=== PATIENT | female | born 1945 | race Caucasian/White ===

== ENCOUNTER 2017-08-30 10:13 | Day surgery (SDC) | payer MEDICARE, MEDICAID, SELFPAY ==
[2017-08-30] VITALS (11 sets, daily range): BP systolic 150–188; BP diastolic 73–109; PULSE 67–81; RESP 14–19; TEMP 36.6–37.2; O2SAT 95–100; BMI 30.3; BMI 32.3
[2017-08-30] MEDS: Glucagon 1 MG/ML Syringe IV (11:06)
--- NOTE | 2017-08-30 11:56 | ED.VISSUMM ---
- ER Visit Summary Date of Service: 08/30/17 Chief Complaint: Esophageal impaction History of Present Illness: The patient is a [address] Merlos. Yesterday at approximately 5 PM she was eating a pork chop and states that it got stuck in her throat. She has been able to eat or drink since. She denies any pain. Patient is from a [place] [facility]. When the caregiver undressed her she noticed the patient has candidal rash beneath her breasts. Physical Examination: Vitals: Stable. Afebrile. General: Well-nourished and well-developed. Head: Normocephalic atraumatic. Neck: Supple, no lymphadenopathy. No JVD. Nontender. Cardiovascular: Regular rate and rhythm. No murmurs. Respiratory: No respiratory distress. Clear to auscultation bilaterally. Abdominal: Soft, nontender, nondistended, normal bowel sounds. No guarding, rebound, or peritoneal signs. Back: Nontender. Extremities: Nontender, no edema. Skin: Erythematous rash below her breasts that is consistent with Maile.. Neurologic: Alert and oriented ?3. Cranial nerves II through XII are intact. Normal strength and sensation. Psych: Normal affect. Emergency Department Course and Treatment: Patient had an IV placed. She is given glucagon IV. She has been unable to get the food bolus the past. Treatment Plan: Patient was discussed with Dr. Leung. He will take her to endoscopy at 430 this afternoon. She is also discussed with the washhouse worker and Dr. Mariee of anesthesia. Disposition: Transferred to endoscopy. Impression: 1. Esophageal impaction. 2. Candidal rash below her breasts. This note was generated with [employer]here[employer] dictation software. It may contain incorrect words, spelling, and punctuation that were not noted in review of the chart prior to signing ED Disposition - Plan for ED Patient: Chief Complaint: Foreign Body Instructions: ED Foreign Body Esophageal Rslv Prescriptions: Ondansetron [Zofran Odt] 4 mg PO Q8H PRN PRN #10 tab PRN Reason: Nausea Nystatin Powder [Mycostatin Powder] 1 applic TOPICAL TID #1 bottle Referrals: Mook Merlos Chi, MD [Primary Care Provider] - Chalo Leung MD [STAFF PHYSICIAN] - 1-2 Weeks
[2017-08-30] MEDS: Ondansetron 4 MG/2 ML Vial IV (12:15)
--- NOTE | 2017-08-30 13:31 | ED.RN ---
[facility] WITH ENDO CALLED. HOLD PT IN ED TILL 1530. DR. SILVESTRE WILL NOT BE HERE TILL 1630.
--- NOTE | 2017-08-30 14:01 | ED.RN ---
pt made aware that she will be going to ac at [address] leiva would be doing an endoscopy at 1630.
[2017-08-30] MEDS: 0.9% Normal Saline 1,000 ML 200 ML IV (14:21)
--- NOTE | 2017-08-30 17:34 | PCM.OP.BLANK ---
Operative Report Date of Procedure: 08/30/17 Preop diagnosis: Patient with a foreign body in the esophagus Postop diagnosis: EGD with foreign body removal Anesthesia: Via the MAC Instrument: Olympus upper endoscope Informed consent was taken prior to procedure. The patient was brought to the endoscopy suite[ she] was placed left shoulder down. Retropharynx was sprayed with topical Cetacaine spray. Anesthesia provided the MAC. The scope was passed under direct visualization down into the esophagus. There was liquid in the proximal esophagus this was sucked up into the endoscope about 30 cm was a large piece of meat. Using a snare a piece of the meat was grasped and brought out. Then using a hexagonal square the entire piece of meat was grasped. This was brought out of the esophagus. The endoscope was reintroduced back into the esophagus significant inflammation of the distal esophagus consistent with a severe esophagitis. The endoscope was passed into the stomach down of the duodenum there was no obstruction noted. The endoscope was withdrawn into the stomach retroflexion was performed no abnormalities near the cardia. Stomach was decompressed there was with severe inflammation of the distal esophagus. Patient tolerated procedure well. Impression: Foreign body of the esophagus successfully removed she has severe esophagitis Plan: Patient needs to take a PPI for ever CC a copy Dr. Merlos
== END 2017-08-30 18:15 | disposition home or self-care (01) ==
LOC: ED 13:57 → EN 15:31 → SDC 16:11 → AC 16:12
PROVIDERS: Family Provider Family Medicine Geriatric Medicine; PCP Family Medicine Geriatric Medicine; Visit Provider Internal Medicine Gastroenterology
PROC: 0DJ08ZZ Inspection of Upper Intestinal Tract, Via Natural or Artificial Opening Endoscopic (ICD-10-PCS; CPT 43235; principal; 2017-08-30 16:25)
DX: T18.128A Food in esophagus causing other injury, initial encounter (principal); X58.XXXA Exposure to other specified factors, initial encounter; Y93.9 Activity, unspecified; Y92.9 Unspecified place or not applicable; Y99.9 Unspecified external cause status; B37.2 Candidiasis of skin and nail; E11.9 Type 2 diabetes mellitus without complications; I10 Essential (primary) hypertension; J45.909 Unspecified asthma, uncomplicated; Z79.899 Other long term (current) drug therapy; Z87.891 Personal history of nicotine dependence
CPT/HCPCS: 43247; 96374; 96375; 99284; J7030; A4216; J1610; J2405

== ENCOUNTER → 2017-11-27 14:06 | Outpatient (CLI) | payer MEDICARE, MEDICAID, SELFPAY ==
--- NOTE | 2017-11-27 14:06 | DT_ITS ---
This patient was seen during an EMR downtime November 20, 2017 - November 27, 2017. This patient may have a combination of paper and electronic documentation or all paper documentation. All documentation is viewable within the e-chart portion of [employer] for each patient visit.
[2017-11-27 17:38] LABS: Absolute Neutrophil Count 6.5 X10^3/uL (2.0-7.7); Basophil# 0.01 X10^3/uL; Basophil% 0.1 % (0-1); Eosinophil# 0.28 X10^3/uL; Eosinophils% 2.9 % (0-5); Hemoglobin 15.3 g/dl (12.0-15.0); Lymphocyte % 21.7 % (19-41); Mean Corpuscular Hgb 32.3 pg (27.0-32.0); Mean Corpuscular Volume 95.1 fL (81-99); Mean Platelet Vol. 11.8 fl (6.2-12.0); Monocyte# 0.79 X10^3/uL; Monocyte% 8.2 % (0-10); Neutrophil # 6.45 X10^3/uL (2.7-7.7); Neutrophil % 66.8 % (47-70); Platelet Count 194 K/mm3 (150-450); RBC Distribution Width CV 12.9 % (11.6-14.6); RBC Distribution Width SD 44.1 fl (35.1-43.9); Red Blood Count 4.73 M/mm3 (4.2-5.4); White Blood Count 9.7 K/mm3 (4.4-11.0)
[2017-11-27 17:42] LABS: POSITIVE COUNT NO; POSITIVE DIFFERENTIAL NO; POSITIVE MORPHOLOGY NO
[2017-11-27 17:51] LABS: Vitamin D,25 Hydroxy 15.3 ng/mL (29.95-100.01)
[2017-11-27 18:00] LABS: AST(SGOT) 25 U/L (15-37); Alanine Aminotransfer ALT/SGPT 33 U/L (13-56); Alkaline Phosphatase 134 U/L (45-117); Anion Gap 11 (5-15); BUN 20 mg/dL (7-18); BUN/Creat Ratio 15.9 RATIO (10-20); Calcium,Total 8.6 mg/dL (8.5-10.1); Chloride 101 mmol/L (98-107); Creatinine, Serum 1.26 mg/dL (0.55-1.02); EST Glomerular Filtration Rate 44 mL/min (>60); Est Glom Filt Rate - Afr Amer 54 mL/min (>60); Glucose 149 mg/dL (74-106); Potassium 4.2 mmol/L (3.5-5.1); Sodium Level 141 mmol/L (136-145); Thyroid Stim Hormone (TSH) 0.86 uIU/mL (0.358-3.74)
[2017-12-01 18:11] LABS: Hep C Antibodies <0.1 s/co ratio (0.0-0.9)
== END ==
PROVIDERS: Family Provider Family Medicine Geriatric Medicine; PCP Family Medicine Geriatric Medicine; Visit Provider Family Medicine Geriatric Medicine
DX: E11.9 Type 2 diabetes mellitus without complications (principal); E55.9 Vitamin D deficiency, unspecified; I10 Essential (primary) hypertension; Z13.89 Encounter for screening for other disorder
CPT/HCPCS: 36415; 80053; 82306; 84443; 85025; 86803

== ENCOUNTER → 2018-06-21 09:37 | Outpatient (CLI) | payer MEDICARE, MEDICAID, SELFPAY ==
[2018-06-21 12:16] LABS: Absolute Lymphocyte Count 2.23 X10^3/ul (0.83-4.51); Absolute Neutrophil Count 4.4 X10^3/uL (2.0-7.7); Basophil# 0.02 X10^3/uL; Basophil% 0.3 % (0-1); Eosinophil# 0.43 X10^3/uL; Eosinophils% 5.6 % (0-5); Hematocrit 45.8 % (37-47); Hemoglobin 15.5 g/dl (12.0-15.0); Lymphocyte # 2.23 X10^3/ul (4.0); Mean Corp Hgb Conc 33.8 g/gl (32-36); Mean Corpuscular Hgb 32.3 pg (27.0-32.0); Mean Corpuscular Volume 95.4 fL (81-99); Mean Platelet Vol. 10.9 fl (6.2-12.0); Monocyte% 7.8 % (0-10); Neutrophil # 4.41 X10^3/uL (2.7-7.7); Neutrophil % 57.2 % (47-70); Platelet Count 179 K/mm3 (150-450); RBC Distribution Width CV 12.9 % (11.6-14.6); RBC Distribution Width SD 44.6 fl (35.1-43.9); White Blood Count 7.7 K/mm3 (4.4-11.0)
[2018-06-21 12:23] LABS: POSITIVE COUNT NO; POSITIVE DIFFERENTIAL NO; POSITIVE MORPHOLOGY NO
[2018-06-21 12:34] LABS: Vitamin D,25 Hydroxy 43.1 ng/mL (29.95-100.01)
[2018-06-21 12:46] LABS: AST(SGOT) 25 U/L (15-37); Alanine Aminotransfer ALT/SGPT 38 U/L (13-56); Alkaline Phosphatase 133 U/L (45-117); Anion Gap 9 (5-15); BUN 20 mg/dL (7-18); BUN/Creat Ratio 17.5 RATIO (10-20); Calcium,Total 8.9 mg/dL (8.5-10.1); Chloride 103 mmol/L (98-107); Creatinine, Serum 1.14 mg/dL (0.55-1.02); EST Glomerular Filtration Rate 50 mL/min (>60); Est Glom Filt Rate - Afr Amer 60 mL/min (>60); Globulin 4.1 g/dL (2.2-4.2); Glucose 164 mg/dL (74-106); Potassium 4.3 mmol/L (3.5-5.1); Protein, Total 8.1 g/dL (6.4-8.2); Sodium Level 137 mmol/L (136-145); Thyroid Stim Hormone (TSH) 1.42 uIU/mL (0.358-3.74)
== END ==
PROVIDERS: Family Provider Family Medicine Geriatric Medicine; PCP Family Medicine Geriatric Medicine; Visit Provider Family Medicine Geriatric Medicine
DX: E11.9 Type 2 diabetes mellitus without complications (principal); I10 Essential (primary) hypertension; E55.9 Vitamin D deficiency, unspecified
CPT/HCPCS: 36415; 80053; 82306; 84443; 85025

== ENCOUNTER → 2018-12-27 11:01 | Outpatient (CLI) | payer MEDICARE, MEDICAID, SELFPAY ==
[2017-08-30 15:56] VITALS: BMI 32.3
[2018-12-27 12:27] LABS: Absolute Lymphocyte Count 1.55 X10^3/ul (0.83-4.51); Absolute Neutrophil Count 2.8 X10^3/uL (2.0-7.7); Basophil# 0.01 X10^3/uL; Basophil% 0.2 % (0-1); Eosinophils% 3.8 % (0-5); Hematocrit 44.7 % (37-47); Hemoglobin 15.6 g/dl (12.0-15.0); Lymphocyte # 1.55 X10^3/ul (4.0); Lymphocyte % 29.1 % (19-41); Mean Corp Hgb Conc 34.9 g/gl (32-36); Mean Corpuscular Volume 91.8 fL (81-99); Mean Platelet Vol. 10.8 fl (6.2-12.0); Monocyte% 13.2 % (0-10); Neutrophil # 2.82 X10^3/uL (2.7-7.7); Neutrophil % 52.9 % (47-70); Platelet Count 171 K/mm3 (150-450); RBC Distribution Width SD 42.5 fl (35.1-43.9); Red Blood Count 4.87 M/mm3 (4.2-5.4); White Blood Count 5.3 K/mm3 (4.4-11.0)
[2018-12-27 12:39] LABS: POSITIVE COUNT NO; POSITIVE DIFFERENTIAL NO; POSITIVE MORPHOLOGY NO
[2018-12-27 12:41] LABS: Vitamin D,25 Hydroxy 59.4 ng/mL (29.95-100.01)
[2018-12-27 12:44] LABS: AST(SGOT) 57 U/L (15-37); Alanine Aminotransfer ALT/SGPT 59 U/L (13-56); Albumin, Serum 3.7 g/dL (3.2-5.0); Alkaline Phosphatase 105 U/L (45-117); Anion Gap 9 (5-15); BUN 21 mg/dL (7-18); BUN/Creat Ratio 18.3 RATIO (10-20); Calcium,Total 7.9 mg/dL (8.5-10.1); Chloride 106 mmol/L (98-107); Creatinine, Serum 1.15 mg/dL (0.55-1.02); EST Glomerular Filtration Rate 49 mL/min (>60); Est Glom Filt Rate - Afr Amer 60 mL/min (>60); Globulin 3.7 g/dL (2.2-4.2); Glucose 152 mg/dL (74-106); Potassium 3.7 mmol/L (3.5-5.1); Protein, Total 7.4 g/dL (6.4-8.2); Sodium Level 136 mmol/L (136-145); Thyroid Stim Hormone (TSH) 1.37 uIU/mL (0.358-3.74)
== END ==
PROVIDERS: Family Provider Family Medicine Geriatric Medicine; PCP Family Medicine Geriatric Medicine; Visit Provider Family Medicine Geriatric Medicine
DX: E11.9 Type 2 diabetes mellitus without complications (principal); I10 Essential (primary) hypertension; E55.9 Vitamin D deficiency, unspecified
CPT/HCPCS: 36415; 80053; 82306; 84443; 85025

== ENCOUNTER → 2019-03-27 10:48 | Outpatient (CLI) | payer MEDICARE, MEDICAID, SELFPAY ==
[2017-08-30 15:56] VITALS: BMI 32.3
[2019-03-27 12:41] LABS: Absolute Lymphocyte Count 2.06 X10^3/uL (0.83-4.51); Absolute Neutrophil Count 5.1 X10^3/uL (2.0-7.7); Basophil# 0.05 X10^3/uL; Basophil% 0.6 % (0-1); Eosinophil# 0.31 X10^3/uL; Eosinophils% 3.8 % (0-5); Hematocrit 47.2 % (37-47); Hemoglobin 15.6 g/dL (12.0-15.0); Lymphocyte # 2.06 X10^3/ul (4.0); Lymphocyte % 25.2 % (19-41); Mean Corp Hgb Conc 33.1 g/dL (32-36); Mean Corpuscular Hgb 32.4 pg (27.0-32.0); Mean Corpuscular Volume 98.1 fL (81-99); Mean Platelet Vol. 11.6 fl (6.2-12.0); Monocyte% 7.3 % (0-10); NRBC Flagged by Analyzer 0 % (0-5); Neutrophil # 5.12 X10^3/uL (2.7-7.7); Neutrophil % 62.6 % (47-70); Platelet Count 207 K/mm3 (150-450); RBC Distribution Width CV 12.3 % (11.6-14.6); RBC Distribution Width SD 44.1 fl (35.1-43.9); Red Blood Count 4.81 M/mm3 (4.2-5.4); White Blood Count 8.2 K/mm3 (4.4-11.0)
[2019-03-27 13:05] LABS: Vitamin D,25 Hydroxy 50.3 ng/mL (29.95-100.01)
[2019-03-27 13:12] LABS: ALB/GLOB Ratio 1.1 RATIO (0.9-2.4); AST(SGOT) 27 U/L (15-37); Alanine Aminotransfer ALT/SGPT 41 U/L (13-56); Albumin, Serum 4.2 g/dL (3.2-5.0); Alkaline Phosphatase 99 U/L (45-117); Anion Gap 6 (5-15); BUN 21 mg/dL (7-18); BUN/Creat Ratio 17.5 RATIO (10-20); Calcium,Total 9.5 mg/dL (8.5-10.1); Chloride 104 mmol/L (98-107); EST Glomerular Filtration Rate 47 mL/min (>60); Est Glom Filt Rate - Afr Amer 57 mL/min (>60); Globulin 3.7 g/dL (2.2-4.2); Glucose 134 mg/dL (74-106); Potassium 4.8 mmol/L (3.5-5.1); Protein, Total 7.9 g/dL (6.4-8.2); Sodium Level 137 mmol/L (136-145); Thyroid Stim Hormone (TSH) 1.44 uIU/mL (0.358-3.74)
== END ==
PROVIDERS: Family Provider Family Medicine Geriatric Medicine; PCP Family Medicine Geriatric Medicine; Visit Provider Family Medicine Geriatric Medicine
DX: E11.9 Type 2 diabetes mellitus without complications (principal); I10 Essential (primary) hypertension; E55.9 Vitamin D deficiency, unspecified
CPT/HCPCS: 36415; 80053; 82306; 84443; 85025

== ENCOUNTER → 2019-07-04 12:19 | Outpatient (CLI) | payer MEDICARE, MEDICAID, SELFPAY ==
[2017-08-30 15:56] VITALS: BMI 32.3
[2019-07-04 13:01] LABS: Absolute Lymphocyte Count 1.49 X10^3/uL (0.83-4.51); Absolute Neutrophil Count 3.6 X10^3/uL (2.0-7.7); Basophil# 0.02 X10^3/uL; Basophil% 0.3 % (0-1); Eosinophil# 0.41 X10^3/uL; Eosinophils% 6.7 % (0-5); Hematocrit 42.7 % (37-47); Hemoglobin 14.6 g/dL (12.0-15.0); Lymphocyte # 1.49 X10^3/ul (4.0); Lymphocyte % 24.2 % (19-41); Mean Corp Hgb Conc 34.2 g/dL (32-36); Mean Corpuscular Hgb 32.7 pg (27.0-32.0); Mean Corpuscular Volume 95.5 fL (81-99); Monocyte# 0.61 X10^3/uL; Monocyte% 9.9 % (0-10); NRBC Flagged by Analyzer 0 % (0-5); Neutrophil # 3.58 X10^3/uL (2.7-7.7); Neutrophil % 58.1 % (47-70); Platelet Count 179 K/mm3 (150-450); RBC Distribution Width CV 12.3 % (11.6-14.6); RBC Distribution Width SD 42.7 fl (35.1-43.9); Red Blood Count 4.47 M/mm3 (4.2-5.4); White Blood Count 6.2 K/mm3 (4.4-11.0)
[2019-07-04 13:19] LABS: Vitamin D,25 Hydroxy 52.3 ng/mL (29.95-100.01)
[2019-07-04 13:30] LABS: ALB/GLOB Ratio 1.1 RATIO (0.9-2.4); AST(SGOT) 20 U/L (15-37); Alanine Aminotransfer ALT/SGPT 35 U/L (13-56); Albumin, Serum 3.9 g/dL (3.2-5.0); Alkaline Phosphatase 89 U/L (45-117); Anion Gap 7 (5-15); BUN 22 mg/dL (7-18); BUN/Creat Ratio 18.2 RATIO (10-20); Chloride 104 mmol/L (98-107); Creatinine, Serum 1.21 mg/dL (0.55-1.02); EST Glomerular Filtration Rate 46 mL/min (>60); Est Glom Filt Rate - Afr Amer 56 mL/min (>60); Globulin 3.5 g/dL (2.2-4.2); Glucose 200 mg/dL (74-106); Potassium 4.2 mmol/L (3.5-5.1); Protein, Total 7.4 g/dL (6.4-8.2); Sodium Level 137 mmol/L (136-145); Thyroid Stim Hormone (TSH) 1.07 uIU/mL (0.358-3.74)
== END ==
PROVIDERS: PCP Family Medicine Geriatric Medicine; Visit Provider Family Medicine Geriatric Medicine
DX: E11.9 Type 2 diabetes mellitus without complications (principal); N39.0 Urinary tract infection, site not specified; I10 Essential (primary) hypertension; E55.9 Vitamin D deficiency, unspecified
CPT/HCPCS: 36415; 80053; 82306; 84443; 85025; 87086; 87088; 87186

== ENCOUNTER → 2020-07-13 07:56 | Outpatient (CLI) | payer MEDICARE, MEDICAID, SELFPAY ==
[2020-07-13 09:29] LABS: Absolute Lymphocyte Count 1.73 X10^3/uL (0.83-4.51); Basophil# 0.02 X10^3/uL; Basophil% 0.3 % (0-1); Eosinophil# 0.32 X10^3/uL; Eosinophils% 4.9 % (0-5); Hematocrit 45.1 % (37-47); Hemoglobin 15.4 g/dL (12.0-15.0); Lymphocyte # 1.73 X10^3/ul (4.0); Lymphocyte % 26.3 % (19-41); Mean Corp Hgb Conc 34.1 g/dL (32-36); Mean Corpuscular Hgb 31.8 pg (27.0-32.0); Mean Corpuscular Volume 93.2 fL (81-99); Mean Platelet Vol. 10.3 fl (6.2-12.0); Monocyte# 0.49 X10^3/uL; Monocyte% 7.4 % (0-10); NRBC Flagged by Analyzer 0 % (0-5); Neutrophil # 3.99 X10^3/uL (2.7-7.7); Neutrophil % 60.5 % (47-70); Platelet Count 183 K/mm3 (150-450); RBC Distribution Width CV 12.6 % (11.6-14.6); RBC Distribution Width SD 43.1 fl (35.1-43.9); Red Blood Count 4.84 M/mm3 (4.2-5.4); White Blood Count 6.6 K/mm3 (4.4-11.0)
[2020-07-13 09:53] LABS: Hemoglobin A1c 6.1 % (3.8-5.6)
[2020-07-13 10:03] LABS: Vitamin D,25 Hydroxy 53.9 ng/mL
[2020-07-13 10:18] LABS: ALB/GLOB Ratio 1.1 RATIO (0.9-2.4); AST(SGOT) 25 U/L (15-37); Alanine Aminotransfer ALT/SGPT 33 U/L (13-56); Albumin, Serum 3.8 g/dL (3.2-5.0); Alkaline Phosphatase 84 U/L (45-117); Anion Gap 8 (5-15); BUN 18 mg/dL (7-18); BUN/Creat Ratio 14.4 RATIO (10-20); Calcium,Total 8.8 mg/dL (8.5-10.1); Chloride 105 mmol/L (98-107); Cholesterol 155 mg/dL (200); Creatinine, Serum 1.25 mg/dL (0.55-1.02); EST Glomerular Filtration Rate 45 mL/min (>60); Est Glom Filt Rate - Afr Amer 54 mL/min (>60); Globulin 3.6 g/dL (2.2-4.2); Glucose 144 mg/dL (74-106); High Density Lipoprotein 39 mg/dL; Potassium 4.2 mmol/L (3.5-5.1); Protein, Total 7.4 g/dL (6.4-8.2); Sodium Level 138 mmol/L (136-145); Thyroid Stim Hormone (TSH) 1.41 uIU/mL (0.358-3.74); Triglycerides 203 mg/dL; Very Low Density Lipoprotein 41 mg/dL (5-40)
== END ==
PROVIDERS: PCP Family Medicine Geriatric Medicine; Referring Provider Family Medicine Geriatric Medicine; Visit Provider Family Medicine Geriatric Medicine
DX: E11.9 Type 2 diabetes mellitus without complications (principal); I10 Essential (primary) hypertension; E78.5 Hyperlipidemia, unspecified; E55.9 Vitamin D deficiency, unspecified
CPT/HCPCS: 36415; 80053; 80061; 82306; 83036; 84443; 85025

== ENCOUNTER → 2021-01-07 09:00 | Outpatient (CLI) | payer MEDICARE, MEDICAID, SELFPAY ==
[2017-08-30 15:56] VITALS: BMI 32.3
[2021-01-07 12:38] LABS: Absolute Lymphocyte Count 1.76 X10^3/uL (0.83-4.51); Absolute Neutrophil Count 4.2 X10^3/uL (2.0-7.7); Basophil# 0.03 X10^3/uL; Basophil% 0.4 % (0-1); Eosinophil# 0.34 X10^3/uL; Eosinophils% 4.9 % (0-5); Hematocrit 45.8 % (37-47); Hemoglobin 15.6 g/dL (12.0-15.0); Lymphocyte # 1.76 X10^3/ul (0.83-4.51); Lymphocyte % 25.4 % (19-41); Mean Corp Hgb Conc 34.1 g/dL (32-36); Mean Corpuscular Volume 93.9 fL (81-99); Monocyte# 0.52 X10^3/uL; Monocyte% 7.5 % (0-10); NRBC Flagged by Analyzer 0 % (0-5); Neutrophil # 4.23 X10^3/uL (2.7-7.7); Neutrophil % 61.2 % (47-70); Platelet Count 182 K/mm3 (150-450); RBC Distribution Width CV 12.3 % (11.6-14.6); RBC Distribution Width SD 42.6 fl (35.1-43.9); Red Blood Count 4.88 M/mm3 (4.2-5.4); White Blood Count 6.9 K/mm3 (4.4-11.0)
[2021-01-07 13:09] LABS: AST(SGOT) 28 U/L (15-37); Alanine Aminotransfer ALT/SGPT 43 U/L (13-56); Albumin, Serum 3.9 g/dL (3.2-5.0); Alkaline Phosphatase 94 U/L (45-117); Anion Gap 8 (5-15); BUN 20 mg/dL (7-18); BUN/Creat Ratio 17.7 RATIO (10-20); Calcium,Total 8.8 mg/dL (8.5-10.1); Chloride 102 mmol/L (98-107); Creatinine, Serum 1.13 mg/dL (0.55-1.02); EST Glomerular Filtration Rate 50 mL/min (>60); Est Glom Filt Rate - Afr Amer 60 mL/min (>60); Globulin 3.8 g/dL (2.2-4.2); Glucose 196 mg/dL (74-106); Potassium 4.3 mmol/L (3.5-5.1); Protein, Total 7.7 g/dL (6.4-8.2); Sodium Level 136 mmol/L (136-145); Thyroid Stim Hormone (TSH) 1.39 uIU/mL (0.358-3.74)
[2021-01-07 21:30] LABS: Vitamin D,25 Hydroxy 55.1 ng/mL
== END ==
PROVIDERS: PCP Family Medicine Geriatric Medicine; Visit Provider Family Medicine Geriatric Medicine
DX: E11.9 Type 2 diabetes mellitus without complications (principal); I10 Essential (primary) hypertension; E55.9 Vitamin D deficiency, unspecified
CPT/HCPCS: 36415; 80053; 82306; 84443; 85025

== ENCOUNTER → 2021-01-28 09:02 | Outpatient (CLI) | payer MEDICARE, MEDICAID, SELFPAY ==
[2017-08-30 15:56] VITALS: BMI 32.3
[2021-01-28 10:13] LABS: Anion Gap 8 (5-15); BUN 32 mg/dL (7-18); BUN/Creat Ratio 24.4 RATIO (10-20); Calcium,Total 9.3 mg/dL (8.5-10.1); Chloride 101 mmol/L (98-107); Creatinine, Serum 1.31 mg/dL (0.55-1.02); EST Glomerular Filtration Rate 42 mL/min (>60); Est Glom Filt Rate - Afr Amer 51 mL/min (>60); Glucose 172 mg/dL (74-106); Potassium 4.7 mmol/L (3.5-5.1); Sodium Level 137 mmol/L (136-145)
== END ==
PROVIDERS: PCP Family Medicine Geriatric Medicine; Visit Provider Family Medicine Geriatric Medicine
DX: I10 Essential (primary) hypertension (principal)
CPT/HCPCS: 36415; 80048

== ENCOUNTER 2021-06-28 15:36 | Outpatient (CLI) | payer MEDICARE, MEDICAID, SELFPAY ==
[2021-06-28 17:18] LABS: Absolute Lymphocyte Count 1.99 X10^3/uL (0.83-4.51); Basophil# 0.03 X10^3/uL; Basophil% 0.3 % (0-1); Eosinophil# 0.28 X10^3/uL; Eosinophils% 3.1 % (0-5); Hematocrit 43.7 % (37-47); Hemoglobin 15.4 g/dL (12.0-15.0); Lymphocyte # 1.99 X10^3/ul (0.83-4.51); Lymphocyte % 21.9 % (19-41); Mean Corp Hgb Conc 35.2 g/dL (32-36); Mean Corpuscular Volume 93.8 fL (81-99); Mean Platelet Vol. 10.7 fl (6.2-12.0); Monocyte# 0.75 X10^3/uL; Monocyte% 8.2 % (0-10); NRBC Flagged by Analyzer 0 % (0-5); Neutrophil # 5.98 X10^3/uL (2.7-7.7); Neutrophil % 65.7 % (47-70); Platelet Count 209 K/mm3 (150-450); RBC Distribution Width CV 11.9 % (11.6-14.6); RBC Distribution Width SD 41.3 fl (35.1-43.9); Red Blood Count 4.66 M/mm3 (4.2-5.4); White Blood Count 9.1 K/mm3 (4.4-11.0)
[2021-06-28 17:55] LABS: ALB/GLOB Ratio 1.1 RATIO (0.9-2.4); AST(SGOT) 48 U/L (15-37); Alanine Aminotransfer ALT/SGPT 61 U/L (13-56); Albumin, Serum 4.1 g/dL (3.2-5.0); Alkaline Phosphatase 79 U/L (45-117); Anion Gap 12 (5-15); BUN 22 mg/dL (7-18); BUN/Creat Ratio 17.1 RATIO (10-20); Calcium,Total 9.1 mg/dL (8.5-10.1); Chloride 99 mmol/L (98-107); Creatinine, Serum 1.29 mg/dL (0.55-1.02); EST Glomerular Filtration Rate 43 mL/min (>60); Est Glom Filt Rate - Afr Amer 52 mL/min (>60); Globulin 3.8 g/dL (2.2-4.2); Glucose 165 mg/dL (74-106); Potassium 4.3 mmol/L (3.5-5.1); Protein, Total 7.9 g/dL (6.4-8.2); Sodium Level 135 mmol/L (136-145); Thyroid Stim Hormone (TSH) 1.71 uIU/mL (0.358-3.74)
== END 2021-06-28 23:59 | disposition short-term general hospital (02) ==
LOC: POLAB3 15:40
PROVIDERS: PCP Family Medicine Geriatric Medicine; Visit Provider Family Medicine Geriatric Medicine
DX: E11.9 Type 2 diabetes mellitus without complications (principal); E55.9 Vitamin D deficiency, unspecified; I10 Essential (primary) hypertension; N39.0 Urinary tract infection, site not specified
CPT/HCPCS: 36415; 80053; 82306; 84443; 85025; 87077; 87086; 87088; 87186

== ENCOUNTER 2021-07-21 12:54 | Outpatient (CLI) | payer MEDICARE, MEDICAID, SELFPAY ==
--- NOTE | 2021-07-21 13:04 | BI_ITS ---
MAMMOGRAPHY - BILATERAL SCREENING REASON FOR EXAM: Female, 76 years old. Routine annual screening examination. PERTINENT HISTORY: Non-contributory. TECHNIQUE: Digital bilateral breast rupinder (3D mammographic acquisition) in the CC and MLO projections. 2-D mediolateral oblique (MLO) and craniocaudad (CC) views of both breasts were obtained. CAD: Full Field Digital Mammography with Computer Added Detection was performed. COMPARISON: Comparison is made with prior study dated 01/12/2017 and 10/08/2013. FINDINGS: Breast Composition: The breasts are almost entirely fatty. There are no dominant masses or suspicious calcifications. No other significant abnormalities are identified. There has been no significant change since the prior study. BI/SCRN MAMM (CAD)W/RUPINDER BILAT IMPRESSION: Stable bilateral screening mammogram. Yearly follow-up mammogram recommended. (A) ASSESSMENT CATEGORY: BIRADS Category 1: Negative. A letter regarding these results will be sent to the patient by the facility within 30 days. Approximately 10% of breast cancers are not detected by mammography. A normal mammogram should not delay biopsy of a clinically suspicious abnormality. [id number] Electronically Signed: Андрей Acosta MD at 13:49 EST ,
== END 2021-07-21 23:59 | disposition short-term general hospital (02) ==
LOC: OPBI 12:56
PROVIDERS: PCP Family Medicine Geriatric Medicine; Referring Provider Family Medicine Geriatric Medicine; Visit Provider Family Medicine Geriatric Medicine
DX: Z12.31 Encounter for screening mammogram for malignant neoplasm of breast (principal)
CPT/HCPCS: 77063; 77067

== ENCOUNTER 2021-07-27 10:08 | Outpatient (CLI) | payer MEDICARE, MEDICAID, SELFPAY ==
--- NOTE | 2021-07-27 10:45 | MRI_ITS ---
HISTORY: ISCHEMIC STROKE. TECHNIQUE: Routine wrangell of Sanz/brain 3D time of flight MR angiogram protocol was performed without gadolinium. 3D reconstructions were reviewed. Number of images including paperwork: 193. COMPARISON: 11/28/2013. FINDINGS: RIGHT VERTEBRAL ARTERY: No occlusion, significant stenosis, or aneurysm. LEFT VERTEBRAL ARTERY: No occlusion, significant stenosis, or aneurysm. BASILAR ARTERY: No occlusion, significant stenosis, or aneurysm. RIGHT TALENT DEVELOPMENT ANALYST: No occlusion, significant stenosis, or aneurysm. LEFT TALENT DEVELOPMENT ANALYST: No occlusion, significant stenosis, or aneurysm. RIGHT ICA:No occlusion, significant stenosis, or aneurysm. LEFT ICA: No occlusion, significant stenosis, or aneurysm. RIGHT MCA:No occlusion, significant stenosis, or aneurysm. LEFT MCA: No occlusion, significant stenosis, or aneurysm. RIGHT PHILLIP: No occlusion, significant stenosis, or aneurysm. Mildly hypoplastic A1 segment. LEFT PHILLIP: No occlusion, significant stenosis, or aneurysm. MRI/MRA Head ONLY without Contrast IMPRESSION: No evidence for significant stenosis or occlusion in the wrangell of Sanz region. at 1147 Reported and signed by: Allie Luna MD Electronically Signed: Allie Luna MD at 11:46 EST ,
--- NOTE | 2021-07-27 11:30 | MRI_ITS ---
HISTORY: ISCHEMIC STROKE. TECHNIQUE: Routine carotid MR angiogram protocol was performed. 3D reconstructions were reviewed. Nascet criteria using the distal ICAs for comparison were used for evaluation of stenoses. IV Contrast dosage and agent: None. # of images incl. paperwork: 545. COMPARISON: CTA 11/28/2013. FINDINGS: AORTIC ARCH AND BRANCHES: Limited evaluation due to motion artifact. RIGHT COMMON CAROTID ARTERY: No occlusion, significant stenosis, or dissection. LEFT COMMON CAROTID ARTERY: No occlusion, significant stenosis, or dissection. RIGHT INTERNAL CAROTID ARTERY: No occlusion, significant stenosis, or dissection. LEFT INTERNAL CAROTID ARTERY: No occlusion, significant stenosis, or dissection. RIGHT VERTEBRAL ARTERY: No occlusion, significant stenosis, or dissection. LEFT VERTEBRAL ARTERY: No occlusion, significant stenosis, or dissection. MRI/MRA Neck without Contrast IMPRESSION: No evidence for significant stenosis in the carotid or vertebral arteries of the neck. at 1155 Reported and signed by: Allie Luna MD Electronically Signed: Allie Luna MD at 11:54 EST ,
--- NOTE | 2021-07-27 11:56 | ECHOCS_ITS ---
Reason For Study: STROKE Procedure This was a 2D Doppler, Color Flow transthoracic echocardiogram. The study was technically difficult. Contrast injection was performed. Exam performed in department. Left Ventricle Normal LV size. Left ventricular systolic function is normal. The estimated ejection fraction is 65 %. No evidence for diastolic dysfunction. No regional wall motion abnormalities noted. Right Ventricle Normal RV size. Normal systolic function. Atria Normal left atrium. Normal right atrium. No doppler evidence for ASD. Mitral Valve There is no mitral annular calcification. Normal mitral valve. Trivial mitral valve insufficiency. Tricuspid Valve Normal tricuspid valve. Trivial tricuspid valve insufficiency. Unable to estimate RV systolic pressure/pulmonary artery pressure due to technically difficult study. Aortic Valve The aortic valve is not well visualized. Mild focal aortic valve calcification. Pulmonic Valve The pulmonic valve is not well visualized. Great Vessels The aortic root is not well visualized. Pericardium/Pleural No pericardial effusion. Medication 22 gauge I.V. with prn adaptor inserted into right arm. Diluted definity 2ml given slow IV push to enhance endocardial definition. MMode/2D Measurements & Calculations LVIDd: 2.7 cm IVSd: 0.85 cm LAV(MOD-bp): 17.3 ml LVIDs: 2.1 cm LVPWd: 0.86 cm RVDd: 2.6 cm FS: 21.1 % LAV(MOD-bp) Indexed: 8.7 ml/m2 LAV(MOD-sp2): 19.6 ml LAV(MOD-sp4): 15.6 ml SV(MOD-sp4): 20.4 ml SV(sp4-el): 21.3 ml LVAd ap4: 18.8 cm2 LVLd ap4: 6.6 cm EDV(MOD-sp4): 43.8 ml EDV(sp4-el): 45.5 ml LVAs ap4: 12.9 cm2 LVLs ap4: 5.9 cm ESV(MOD-sp4): 23.4 ml ESV(sp4-el): 24.2 ml EF(MOD-sp4): 46.5 % EF(sp4-el): 46.8 % LA A4 area: 9.8 cm2 RA A4 area: 4.6 cm2 Time Measurements MV dec time: 0.24 sec Doppler Measurements & Calculations MV E max shabbir: 68.6 cm/sec Lat Peak E' Shabbir: 7.9 cm/sec Med Peak E' Shabbir: 7.8 cm/sec MV A max shabbir: 93.9 cm/sec E/E' lat: 8.7 E/E' med: 8.8 MV E/A: 0.73 Ao V2 max: 152.6 cm/sec LV V1 max: 111.0 cm/sec PA V2 max: 104.4 cm/sec Ao max P.3 mmHg LV V1 max P.9 mmHg ECHO/Echo Complete W/ Contrast Interpretation Summary The study was technically difficult. Contrast injection was performed. Left ventricular systolic function is normal. The estimated ejection fraction is 65 %. Trivial mitral valve insufficiency. Trivial tricuspid valve insufficiency. Mild focal aortic valve calcification. Unable to estimate RV systolic pressure/pulmonary artery pressure due to techni bebeto difficult study. No evidence for diastolic dysfunction. Comment: The transthoracic echocardiogram from 11-28-2013 demonstrated a negativ e agitated saline contrast study for a right to left interatrial shunt. Ordering Physician: Mook Merlos Referring Physician: Mook Merlos Chi Performed By: Sheree Modi RDCS
== END 2021-07-27 23:59 | disposition home or self-care (01) ==
LOC: MRI 10:10
PROVIDERS: PCP Family Medicine Geriatric Medicine; Referring Provider Family Medicine Geriatric Medicine; Visit Provider Family Medicine Geriatric Medicine
DX: I63.50 Cerebral infarction due to unspecified occlusion or stenosis of unspecified cerebral artery (principal); Z86.73 Personal history of transient ischemic attack (TIA), and cerebral infarction without residual deficits
CPT/HCPCS: 70544; 70547; 93306; Q9957; A4216; C8929

== ENCOUNTER 2021-07-28 09:12 | Emergency (ER) | payer MEDICARE, MEDICAID, SELFPAY ==
[2021-07-28 09:14] VITALS: BMI 26.6
[2021-07-28 09:16] VITALS: BP 160/101; PULSE 89; RESP 17; TEMP 36.8; O2SAT 96; BMI 26.6
--- NOTE | 2021-07-28 09:44 | EDS_ITS ---
HPI History of Present Illness Chief Complaint: Neuro S/Sx Narrative Narrative: 76-year-old female transported from her longterm for evaluation due to weakness in the left arm and the left leg which have been going on for a month. Patient had an MRI on 07/07/2021 which was negative. Since her symptoms have been persistent the patient had an MRA head and neck yesterday which was negative. She had an echocardiogram which is normal. She is also had an EEG. Patient states the only thing different really today is that she has a lmyo-psl-ygiqtdd feeling in the same distribution. Patient was able to get up and ambulate with her walker to the restroom today. [facility] Medical History (Updated 07/28/21 @ 09:16 by Ruthy Infante) Diabetes Hypertension TIA (transient ischemic attack) Home Medications ipratropium-albuterol [Combivent Respimat] 1 puff Q6H PRN PRN 11/27/13 [History Last Taken Unknown] lisinopril 40 mg PO DAILY 11/27/13 [History Last Taken Unknown] simvastatin 20 mg PO QHS 11/27/13 [History Last Taken Unknown] diclofenac sodium 75 mg PO BIDCM 08/30/17 [History Last Taken Unknown] nystatin 1 applic TOPICAL TID #1 bottle 08/30/17 [Rx Last Taken Unknown] ondansetron 4 mg PO Q8H PRN PRN #10 tab 08/30/17 [Rx Last Taken Unknown] atorvastatin 40 mg PO DAILY 07/28/21 [History Last Taken Unknown] citalopram 10 mg PO DAILY 07/28/21 [History Last Taken Unknown] clopidogrel 75 mg PO DAILY 07/28/21 [History Last Taken Unknown] metformin 500 mg PO BID 07/28/21 [History Last Taken Unknown] Allergy/AdvReac Type Severity Reaction Status Date / Time amitriptyline Allergy Rash Verified 07/28/21 09:15 Penicillins Allergy Hives Verified 07/28/21 09:15 Social History Smoking Status: Former smoker ROS ROS ED Constitutional Constitutional ED: Denies chills or fever(s) Eyes Eyes: Denies blurry vision ENT ENT ED: Denies rhinorrhea or sore throat Cardiovascular Cardiovascular: Denies chest pain or palpitations Respiratory/Chest Respiratory/Chest: Denies cough, dyspnea or sputum Gastrointestinal Gastrointestinal: Denies abdominal pain or nausea Genitourinary Genitourinary ED: Denies dysuria or hematuria Musculoskeletal Musculoskeletal: Denies arthralgias or myalgias Neurologic Neurologic: Reports paresthesias LUE and LLE; Denies headache(s) EXAM Physical Exam Const Vital Signs: 07/28/21 09:16 Temperature 98.2 F Temperature Source Temporal Pulse Rate 89 Respiratory Rate 17 Blood Pressure 160/101 H Blood Pressure Mean 120 Pulse Ox 96 Oxygen Delivery Method Room Air General Appearance ED: Negative for pallor HEENT Reports moist mucous membranes Negative for trauma Eyes PERRL and EOMs intact bilaterally Chest Wall inspection of chest normal and palpation of chest normal Resp normal respiratory effort and clear to auscultation bilaterally Cardio regular rate and regular rhythm Neuro oriented x3 and CN's II-XII intact bilaterally Neuro Narrative: Diminished sensation in left upper extremity and left lower extremity which patient reports is unchanged Sensorium / Orientation: alert Motor Exam: strength 5/5 throughout Psych mental status grossly normal Skin no rashes or lesions noted General Skin Exam: Negative for jaundice or pallor MDM MDM MDM Narrative Medical decision making narrative: Patient presenting for evaluation due to his needles feeling in the distribution of the left upper extremity left lower ex tremity. She states this is new today but has had weakness in the left arm and left leg for a month. She had a negative MRI, MRA head and neck, echocardiogram, EEG. I discussed this with Dr. Merlos who had been seeing her for the last month. I discussed my exam with him and he does not feel anything has changed. He states that he would not have sent her to the emergency room, but by the time he was notified she had already been transported. Her caregiver at the bedside states that there is nothing new other than the signs and needles feeling. Given this I do not believe the patient needs any images. I did asked Dr. Merlos if he wanted any blood work or anything done and he stated no. He will see the patient in follow-up. Patient will be discharged home in stable condition. Impression: 1. Neuropathy 2. Left arm and leg weakness Discharge Plan Triage Chief Complaint: Neuro S/Sx ED Provider: Geronimo Amador Dx/Rx/DC Orders Instructions: ED Neuropathy, Peripheral Prescriptions: No Action simvastatin 20 MG tablet 20 mg PO QHS RF: 0 lisinopril 40 MG tablet 40 mg PO DAILY RF: 0 ipratropium-albuterol [Combivent Respimat] 1 PUFF inhaler 1 puff Q6H PRN PRN (Reason: Wheezing) RF: 0 diclofenac sodium 75 MG tablet 75 mg PO BIDCM RF: 0 ondansetron 4 MG tablet 4 mg PO Q8H PRN PRN (Reason: Nausea) Qty: 10 RF: 0 nystatin 1 APPLIC bottle 1 applic TOPICAL TID Qty: 1 RF: 0 atorvastatin 40 mg tablet 40 mg PO DAILY RF: 0 metformin 500 mg tablet 500 mg PO BID RF: 0 citalopram 10 mg tablet 10 mg PO DAILY RF: 0 clopidogrel 75 mg tablet 75 mg PO DAILY RF: 0 Primary Care Provider: Mook Merlos Chi Referrals: Mook Merlos Chi, MD [Primary Care Provider] - Disposition Disposition: Home, Self Care
[2021-07-28 09:53] VITALS: BP 156/84
== END 2021-07-28 09:54 | disposition home or self-care (01) ==
PROVIDERS: Emergency Provider Student in an Organized Health Care Education/Training Program; PCP Family Medicine Geriatric Medicine; Visit Provider Student in an Organized Health Care Education/Training Program
DX: E11.40 Type 2 diabetes mellitus with diabetic neuropathy, unspecified (principal); R29.898 Other symptoms and signs involving the musculoskeletal system; I10 Essential (primary) hypertension; Z87.891 Personal history of nicotine dependence; Z86.73 Personal history of transient ischemic attack (TIA), and cerebral infarction without residual deficits; Z79.02 Long term (current) use of antithrombotics/antiplatelets; Z79.899 Other long term (current) drug therapy; Z79.84 Long term (current) use of oral hypoglycemic drugs
CPT/HCPCS: 99282

== ENCOUNTER 2021-09-16 11:00 | Outpatient (RCR) | payer MEDICARE, MEDICAID, SELFPAY ==
--- NOTE | 2021-08-24 11:17 | HP.OTEVAL_ITS ---
Patient's Visit Information NAHUN CHAPMAN is a 76 year old F, referred to Occupational Therapy by Dr. Mook Merlos MD, with a diagnosis of TIA weakness. Date of Evaluation: 08/24/21 Occupational Therapist: Nasreen Leahy, CASS/Mikhail, CHT - Subjective This 76 year old female was seen for OT eval with dx of TIA in 2021. pt sta lubna Dr. Merlos rec'd Therapy at that time but due to household she lives in was quarantined. caregiver with pt today recalls all information-. pt on gabapentin in started in Jul. states she feels this is happening a little bit-. pt had ECHO and MRI Jul.27 - on blood thinner only on a month. pt states she does have difficulty sleeping due to tingling because of tingling and pain-. sleeps in regular bed-. left handed. 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 PLOF pt was IND with all ADLs, cooking and light cleaning folding laundry- now requires total assist due to weakness and poor motor planning. - ADLs Comments: per staff pt was ind. with bathing/dressing and was ambulating IND. no adaptive eq. staff is in 24 hours a day-. now staff is assisting at MAX assist -. pt unable to play cards-. feed self. needs shower chair and ww for assistive device. staff feels she is sleeping multiple times a day-. pt did go to a day - Pain left hand 5 Pain Intensity Range: 3, 5 - ROM Shoulder: right 165 left 140 Elbow: right/left WNL - Strength Professor Of Fine Art: right 40# left 20# Lateral Pinch: right 2# left unable Tripod Pinch: right 4# left unable Strength Comments: pt demo BUE weakness increasing need of therapist assist with functional chair- stand and stand to chair tsf. MOD A. increasing safety concerns. - Sensation Sensation Comments: pt was having difficulty identifying monofilaments. unable by feel to recognize if she had a elliott or quarter in her hand. stereognosis 0/2 - Quick DASH-Disab of Arm,Shoulder& Hand Quick DASH Score: 72.7250 - Goals Goal:: pt will demo a increase in BUE strength by performing safe functional tsf at [facility] from sit-stand and stand to sit indicating increase in UB strength. pt demo a left cardiac rehab nurse strength of 35# or greater to increase pts ind. with ADLS and I ADls by d/c Goal:: pt will demo a increase in left shoulder flex to 160* to increase pts ind with ADLS and IADLS by d.c Goal:: pt will demo the ability to button/zip and manipulate fasteners at IND level indicating IND with ADLs and IADLS by d.c. pt will demo the ability to write name legibly by d/c Goal:: staff will report pt is SBA with bathing/ dressing 80% of the time with use of ad. eq. to increase safety by d.c Goal:: pt will demo functional tsf From wc to chair at CGA level by d.c Goal:: pt will demo good dyn standing balance for 4 min as precursor for IADL and grooming at sink by d.c - Rehabilitation General Assessment: pt demo with a decline in her PLOF following increasing need of assists with all ADLs and IADls. pt now ambulation with WW and using shower chair- [facility] pt with all tasks. pt demo weakness in left UE limiting use of dominant hand for ADLs and IADLS . pt would benefit from skilled OT services 2-3x week for 6 weeks to assist pt in reaching her maximal rehab potential. Today therapist ed. pt on initiating while sitting wt. bearing to left UE while reaching for items with unaffected UE- importance of a HEP and challenging pts FMS daily. Rehabilitation Potential: Good - Anticipated Interventions A/AAROM/PROM, Strengthening, Orthoses, Joint Protection/Energy Conservation, Fine Motor Coord/Kali, Neuro Reeducation, ADL Training, Education re assistive Equipment, Education re Diagnosis, Caregiver Training, Home Program - Visit Plan Frequency: 2-3x /Week Duration: 6 Weeks TEXT: Thank you for the opportunity to evaluate your patient. For Medicare and Medicare HMO plans, please review the plan of care and approve it. It will need to be FAXED BACK to us at [phone] for Medicare purposes. Please let me know if there are questions or concerns regarding this plan of care. Physician Signat ure: Date:
--- NOTE | 2021-08-24 13:04 | HP.PTEVAL_ITS ---
Patient's Visit Information NAHUN CHAPMAN is a 76 year old F referred to Physical Therapy by Dr. Mook Merlos MD with a diagnosis of TIA L hemiparesis. Date of Evaluation: 08/24/21 Physical Therapist: Zev Garcia, PT, ATC - Visit Plan Frequency: 2-3x /Week Duration: 4-6 Weeks Plan: L LE strengthening, balance and proprio, core stab ex's, gait training, balance and proprio, nustep, and HEP - Subjective Pt reports she had a TIA a couple months ago. Pt reports she just woke up one day and had tingling and numbness in her L hand and foot. Pt reports she was diagnosed with TIA, and placed on blood thinners for 4 weeks. Pt notes she lives in a retirement prior to the CVA secondary to difficulties with self care. Pt reports she was I with all ADL's prior to her stroke. Pt notes she was very active prior to her stroke. Pt notes she was able to go to the bathroom and walk without assistance until CVA. Pt now reports her greatest difficulties are L hand weakness, decreased balance, and intolerance for prolonged walking. Pt reports no pain today. Pt reports decreased sensation in her L foot at this time. Pt reports she ambulated without AD prior to CVA. No stairs at home. Pt reports sleep difficulty because she cant get comfortable - Objective Neuro: B LE sensation is WNL to light touch. B patellar reflex= 3/3. ROM: B LE's are WFL at this time. MMT: R hip flex= 10.9, knee ext= 20, knee flex= 22; L hip flex= 9, knee ext= 17, knee flex= 14 #F. Gait: Pt is able to ambulate approximately 71 feet with WW and CGAx1 until needing to sleep. Transfers: Pt is Sary with sit to stand transfers at this time. - Balance/Special Test Scores Lower Extremity Functional Score: 10 - Goals Goal 1:: Increase L LE strength x 5 #F to aid with increasing ease of transfers Goal Time Frame: 4-6 Weeks Goal 2:: Pt will be able to ambulate 340 feet with WW and SBAx1 to aid with community ambulation Goal Time Frame: 4-6 Weeks Goal 3:: I with HEP to promote future strengthening Goal Time Frame: 4-6 Weeks - Rehabilitation Potential Physical Therapy Diagnosis: Pt has L LE weakness, difficulty with gait, and intolerance for prolonged ambulation secondary to TIA Rehabilitation Potential: Good - Anticipated Interventions Patient/Client Instruction: Educate patient on: Condition, Plan of Care For the Purpose of:: To improve self management Therapeutic Exercise to Include: Strength training, Endurance training, Balance training, Gait and locomotor training, Active ROM, Dynamic Lumbar Stabilization For the Purpose of:: To decrease pain, To increase ROM, To improve muscle performance and motor function Thank you for the opportunity to evaluate your patient. For Medicare and Medicare HMO plans, please review the plan of care and approve it. It will need to be FAXED BACK to us at [phone] for Medicare purposes. For Medicare only, by signing this I certify the plan of care. Please let me know if there are questions or concerns regarding this plan of care. Physician Signature: Date:
--- NOTE | 2021-12-03 13:08 | HP.PT.NRP ---
NAHUN CHAPMAN was seen in my office for initial evaluation on 08/24/21. The following Plan of Care was established for this patient: Initial Frequency: 2-3x /Week Initial Duration: 4-6 Weeks Patient/Client Instruction: Educate patient on: Condition, Plan of Care For the Purpose of:: To improve self management Therapeutic Exercise to Include: Strength training, Endurance training, Balance training, Gait and locomotor training, Active ROM, Dynamic Lumbar Stabilization For the Purpose of:: To decrease pain, To increase ROM, To improve muscle performance and motor function This patient was last seen in our office . Pertinent comments regarding their Physical therapy will appear below: Pt was treated for 4 PT visits for TIA symptoms through the date of 09/16/21. Pt has not returned through todays date and is discontinued at this time At this point I will be discontinuing this patient from physical therapy. I would be happy to see this patient again in the future if found appropriate by the physician. Thank you! Zev Garcia, PT, ATC Balance/Gait/Functional tests - Balance/Special Test Scores Lower Extremity Functional Score: 10
== END 2021-09-16 19:00 | disposition home or self-care (01) ==
LOC: PT 11:00
PROVIDERS: PCP Family Medicine Geriatric Medicine; Referring Provider Family Medicine Geriatric Medicine; Visit Provider Family Medicine Geriatric Medicine
DX: I69.352 Hemiplegia and hemiparesis following cerebral infarction affecting left dominant side (principal)
CPT/HCPCS: 97110; 97162; 97166

== ENCOUNTER 2021-10-06 10:32 | Outpatient (CLI) | payer MEDICARE, MEDICAID, SELFPAY ==
--- NOTE | 2021-10-06 10:50 | US_ITS ---
INDICATION: CKD III -- OTHER TESTING, WILL CALL US WHEN PT IS READY EXAMINATION: Ultrasound US Kidney(s) complete (eg, kidneys and bladder) TECHNIQUE: Lynch scale and color doppler images were obtained of the kidneys. COMPARISON: None. FINDINGS: RIGHT KIDNEY: There is no hydronephrosis. No shadowing calculus, focal lesion or perinephric collection is demonstrated. The right kidney is slightly atrophic in size. Mild cortical thinning is seen. The right kidney measures 0.2 x 4.7 x 4.8 cm. Right renal cortex measures 0.9 cm. LEFT KIDNEY: There is no hydronephrosis. No shadowing calculus, focal lesion or perinephric collection is demonstrated. The left kidney measures 10.0 x 5.5 x 4.8 cm. Left renal cortex measures 1.3 cm. URINARY BLADDER: The urinary bladder is suboptimally distended, no evidence of bladder stone or mass is seen the bladder wall measures 0.3 cm. Bilateral ureteral jets are visualized and unremarkable. US/Kidney and Bladder IMPRESSION: Mild atrophy and cortical thinning visualized in the right kidney. No evidence of acute renal pathology. Electronically Signed: Bhavik Petty MD at 14:33 EDT ,
--- NOTE | 2021-10-06 12:31 | NEURO ---
NCS and/or EMG Patient Report Ordering Doctor: Mook Merlos Chi DATE OF SERVICE: 10/06/21 Norma Spring presents for electrodiagnostic testing of the left upper limb. She reports pain in the forearm and numbness in the hand. Electrodiagnostic findings: Left median motor nerve demonstrates prolonged distal latency with normal amplitude and reduced conduction velocity. Left ulnar motor nerve demonstrates normal distal latency and amplitude with a drop of approximately 25% across the elbow. Normal median and ulnar F waves. Borderline prolonged left median sensory latency at the wrist. Prolonged left median palmar latency. On needle EMG, all muscles tested in the left upper limb showed no evidence of denervation with normal motor unit action potentials. Electrodiagnostic impression: This is an abnormal study in the left upper limb. 1. Electrodiagnostic findings demonstrate left-sided median mononeuropathy. This is consistent with a mild left carpal tunnel syndrome. 2. Electrodiagnostic findings demonstrate left ulnar neuropathy, consistent with a mild to moderate left cubital tunnel syndrome. 3. No electrodiagnostic evidence is noted for cervical radiculopathy.
== END 2021-10-06 23:59 | disposition home or self-care (01) ==
LOC: PSN 10:43 → US 10:44 → PSN 10:48 → US 10:50
PROVIDERS: PCP Family Medicine Geriatric Medicine; Referring Provider Internal Medicine Nephrology; Visit Provider Internal Medicine Nephrology
DX: R20.0 Anesthesia of skin (principal); N18.32 Chronic kidney disease, stage 3b
CPT/HCPCS: 76770; 95886; 95910

== ENCOUNTER 2021-11-03 17:42 | Inpatient (IN) | payer MEDICARE, MEDICAID, SELFPAY ==
[2021-11-03 17:46] VITALS: BP 113/77; PULSE 88; RESP 18; TEMP 36.1; O2SAT 98; BMI 28.3
--- NOTE | 2021-11-03 18:18 | NURSING ---
Patient complains of upper back, neck pain, jumps when light touch applied to lower neck. Also c/o pins and needles to left hand from wrist done.
--- NOTE | 2021-11-03 18:30 | EKG12_ITS ---
Test Reason : SPINAL CORD INJURY Blood Pressure : / mmHG Vent. Rate : 082 BPM Atrial Rate : 082 BPM P-R Int : 152 ms QRS Dur : 076 ms QT Int : 382 ms P-R-T Axes : 020 -02 064 degrees QTc Int : 446 ms Normal sinus rhythm Septal infarct , age undetermined Abnormal ECG Confirmed by YOLANDA AKHTAR, BLANQUITA ([id number]), editor magazine MARCELA HANNA ([id number]) on 11/05/2021 11:01:25 A M Referred By: DR PORTER Confirmed By:EMILI GUERRERO MD
[2021-11-03] MEDS: dexAMETHasone 10 MG/ML Vial IV (18:34)
[2021-11-03 18:53] LABS: Absolute Lymphocyte Count 2.08 X10^3/uL (0.83-4.51); Basophil# 0.02 X10^3/uL; Basophil% 0.2 % (0-1); Eosinophil# 0.43 X10^3/uL; Eosinophils% 5.1 % (0-5); Hematocrit 41.7 % (37-47); Hemoglobin 14.9 g/dL (12.0-15.0); Lymphocyte # 2.08 X10^3/ul (0.83-4.51); Lymphocyte % 24.5 % (19-41); Mean Corp Hgb Conc 35.7 g/dL (32-36); Mean Corpuscular Hgb 33.3 pg (27.0-32.0); Mean Corpuscular Volume 93.3 fL (81-99); Mean Platelet Vol. 10.3 fl (6.2-12.0); Monocyte# 0.93 X10^3/uL; NRBC Flagged by Analyzer 0 % (0-5); Neutrophil # 4.98 X10^3/uL (2.7-7.7); Neutrophil % 58.6 % (47-70); Platelet Count 189 K/mm3 (150-450); RBC Distribution Width CV 11.8 % (11.6-14.6); RBC Distribution Width SD 40.5 fl (35.1-43.9); Red Blood Count 4.47 M/mm3 (4.2-5.4); White Blood Count 8.5 K/mm3 (4.4-11.0)
--- NOTE | 2021-11-03 18:53 | EDS_ITS ---
HPI History of Present Illness Chief Complaint: Weakness Detail of Chief Complaint: Weakness upper and lower extremity with incontinence for 2+ months Informant: patient and other Onset/Context/Timing Onset: Month(s) Context: Sudden Onset Timing: Continuous Quality: Motor weakness upper extremities, lower extremities with incontinence Location: Paramedial extruded disc seat 3 4 with cephalad displacement Current Severity: Severe Maximum Severity: Severe PFSH PFSH Medical History (Updated 11/03/21 @ 19:[address] Gutierrez Du MD) Acute cystitis Arthritis ASD (atrial septal defect) Atherosclerosis Atrophic vaginitis Back problem Chronic bronchitis Dermatophytosis Diabetes Disorder of bone and cartilage Dysuria History of high blood pressure Hypertension Macular degeneration Mixed hyperlipidemia Onychomycosis Pseudophakia Stress incontinence Stroke TIA (transient ischemic attack) Tobacco use disorder Urethrocele Home Medications atorvastatin 40 mg PO DAILY 07/28/21 [History Last Taken Unknown] citalopram 10 mg PO DAILY 07/28/21 [History Last Taken Unknown] metformin 500 mg PO BID 07/28/21 [History Last Taken Unknown] aspirin 81 mg tablet,delayed release 81 mg PO DAILY 10/05/21 [History Last Taken Unknown] famotidine 40 mg tablet 40 mg PO DAILY 10/05/21 [History Last Taken Unknown] gabapentin 100 mg capsule 100 mg PO TID 10/05/21 [History Last Taken Unknown] cholecalciferol (vitamin D3) [Vitamin D3] 25 mcg PO DAILY 11/03/21 [History Last Taken 11/03/21] glycopyrrolate-formoterol [Bevespi Aerosphere] 2 puff INHALATION BID 11/03/21 [History Last Taken 11/03/21] valsartan-hydrochlorothiazide 1 tab PO QHS 11/03/21 [History Last Taken 11/02/21] Allergy/AdvReac Type Severity Reaction Status Date / Time amitriptyline Allergy Rash Verified 11/03/21 17:43 Penicillins Allergy Hives Verified 11/03/21 17:43 codeine AdvReac Intermediate Other Verified 11/03/21 17:43 Surgical History (Updated 10/05/21 @ 09:36 by Huong Perdomo) No history of previous surgery Social History 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 Smoking Status: Former smoker alcohol intake: never substance use type: does not use what type of physical activity do you participate in: none ROS ROS ED Constitutional Constitutional ED: Denies chills, fever(s), subjective, sweats or weight loss Eyes Eyes: Denies blurry vision, change in vision or diplopia ENT ENT ED: Denies ear pain, rhinorrhea or sore throat Cardiovascular Cardiovascular: Denies chest pain, palpitations or racing heartbeat Respiratory/Chest Respiratory/Chest: Denies cough, dyspnea or dyspnea on exertion Gastrointestinal Gastrointestinal: Reports other Details: Rectal incontinence ; Denies abdominal pain, constipation, diarrhea, nausea or vomiting Genitourinary Genitourinary ED: Denies dysuria, hematuria or urinary frequency Musculoskeletal Musculoskeletal: Reports neck pain; Denies arthralgias or myalgias Integumentary Denies abscess, Abrasions or rash Neurologic Neurologic: Reports paresthesias and weakness; Denies headache(s) Endocrine Endocrinology: Denies polydipsia, polyphagia or polyuria EXAM Physical Exam Const Vital Signs: 11/03/21 17:46 11/03/21 18:20 Temperature 97.0 F L Temperature Source Temporal Pulse Rate 88 Respiratory Rate 18 Respiratory Effort Normal Respiratory Pattern Normal Blood Pressure 113/77 Blood Pressure Mean 89 Pulse Ox 98 Oxygen Delivery Method Room Air Positive well nourished, well developed and obese General Appearance ED: well developed and NAD; Negative for cyanotic or diaphoretic Nutritional Appearance: obese HEENT Reports TM's clear and moist mucous membranes HEENT Narrative: Ears normal. Nares patent. Uvula midline. No erythema or exudate. Negative for trauma or tenderness Tympanic Membrane ED: Yes TM's clear Eyes PERRL and EOMs intact bilaterally Eyes Narrative: There is no nystagmus. General Eye ED: Negative for pale conjunctiva or scleral icterus Neck no lymphadenopathy, supple and no JVD Chest Wall inspection of chest normal Resp normal respiratory effort and clear to auscultation bilaterally Cardio regular rate, regular rhythm, S1 normal heart sound, S2 normal heart sound and no murmurs GI normal to inspection, nondistended, normoactive bowel sounds and non-tender Palpation: soft Back/Spine no CVA tenderness Cervical Spine: Negative for cervical spine tenderness Thoracic Spine / Upper Back: Negative for thoracic spinal tenderness or paraspinal muscle tenderness Extremity normal to inspection General Extremety ED: Negative for edema or tenderness General Extremity: Negative for edema Neuro oriented x3, CN's II-XII intact bilaterally and No no sensory deficits noted Neuro Narrative: Patient has bilateral Penske sign. There is 3-4 beats of clonus right and left ankle. Reflexes are brisk bilaterally and upper and lower. Sensorium / Orientation: alert Motor Exam: Negative for strength 5/5 throughout Psych Psych Narrative: Patient has capacity to make medical decision. She has had ability to make her own medical decisions since she has been an adult according to Toshia the person from the halfway. Skin no rashes or lesions noted Skin Narrative: There is a pressure sore sacral/gluteal area MDM MDM MDM Narrative Medical decision making narrative: Patient has no rectal tone abnormal neuro exam due to a C3-4 paramedial disc protrusion with cord compression. She received 10 mg of Decadron IV push. Case was discussed with Dr. Freedman. Request admission to medical service. Plan is surgery tomorrow and a CDS. Lab Data Attestation: I reviewed the patient's lab results. Labs: Laboratory Results - last 24 hr 11/03/21 11/03/21 11/03/21 18:35 18:35 18:35 WBC 8.5 RBC 4.47 Hgb 14.9 Hct 41.7 MCV 93.3 MCH 33.3 H MCHC 35.7 RDW Std Deviation 40.5 RDW Coeff of Marcel 11.8 Plt Count 189 MPV 10.3 Immature Gran % (Auto) 0.600 Neut % (Auto) 58.6 Lymph % (Auto) 24.5 Harnett % (Auto) 11.0 H Eos % (Auto) 5.1 H Baso % (Auto) 0.2 Absolute Neuts (auto) 5.0 Absolute Lymphs (auto) 2.08 Nucleated RBC % 0 PT 13.2 INR 1.0 APTT 28.8 Sodium 139 Potassium 3.9 Chloride 100 Carbon Dioxide 29.0 Anion Gap 10 BUN 44 H Creatinine 1.30 H Estim Creat Clear Calc 28.22 Est GFR (MDRD) Af Amer 51 L Est GFR (MDRD) Non-Af 42 L BUN/Creatinine Ratio 33.8 H Glucose 95 Calcium 9.8 Total Bilirubin 0.40 AST 33 ALT 43 Alkaline Phosphatase 76 Total Protein 7.8 Albumin 3.9 Globulin 3.9 Albumin/Globulin Ratio 1.0 Radiography Chest X-Ray - ED: 1 View and Read by ED Physician (X-ray was independently interpreted by me. There is no acute findings. Cardiac silhouette size normal. Lung parenchyma is unremarkable. Osseous structures are unremarkable.[id number]) Diagnostic Testing: Clinical Impression(s) from Imaging Studies Chest X-Ray 11/03/21 19:10 IMPRESSION: There are no acute findings. Electronically Signed: Zev Conde MD at 19:25 EDT , 1. Left ventral spinal cord compression at the C3-C4 disc space level secondary to left posterior paramedian and cephalad extruded disc fragment. Additionally, moderate stenosis of the intervertebral neural foramina due to osteophytes arising from moderately pronounced degenerative facet hypertrophy. 2. Capacious intramedullary high signal intensity without cord expansion at the upper C6 vertebral body level. This may be due to myelomalacia possibly from remote injury. Discharge Plan Triage Chief Complaint: Weakness ED Provider: Gutierrez Du Dx/Rx/DC Orders Clinical Impression: Cervical spinal cord compression Prescriptions: No Action famotidine 40 mg tablet 40 mg PO DAILY RF: 0 gabapentin 100 mg capsule 100 mg PO TID RF: 0 aspirin [Adult Aspirin Regimen] 81 mg tablet,delayed release (DR/EC) 81 mg PO DAILY RF: 0 atorvastatin 40 mg tablet 40 mg PO QHS RF: 0 metformin 500 mg tablet 500 mg PO BID RF: 0 citalopram 10 mg tablet 10 mg PO QHS RF: 0 valsartan-hydrochlorothiazide 320-12.5 mg tablet 1 tab PO QHS RF: 0 cholecalciferol (vitamin D3) [Vitamin D3] 25 mcg (1,000 unit) Tablet 25 mcg PO DAILY RF: 0 Bevespi Aerosphere 9-4.8 mcg HFA aerosol inhaler 2 puff INHALATION BID RF: 0 Primary Care Provider: Mook Merlos Chi Referrals: Mook Merlos Chi, MD [Primary Care Provider] - Disposition Disposition: Acute Care [facility]
[2021-11-03 19:04] LABS: Prothrombin Time (Protime)PT. 13.2 SECONDS (11.7-14.9)
[2021-11-03 19:05] LABS: Partial Thromboplast Time 28.8 Seconds (24.1-36.2)
--- NOTE | 2021-11-03 19:10 | RAD_ITS ---
STUDY: XR Chest 1 View 11/03/2021 7:10 PM REASON FOR EXAM: Female, 76 years old. CHEST PAIN Preop COMPARISON: None TECHNIQUE: XR Chest 1 View FINDINGS: There is no demonstrated pleural abnormality. Normal heart size. Normal mediastinum. Normal chris. Prominent appearing increased interstitial lung markings. Normal visualized pulmonary arteries. There is atherosclerotic calcification of the aortic arch with tortuosity. There are diffuse degenerative changes of the visualized thoracic spine. There is degenerative osteoarthritis of the bilateral shoulders. There is no demonstrated abnormality of the visualized soft tissue structures of the upper abdomen. RAD/Chest 1 View (Portable) IMPRESSION: There are no acute findings. Electronically Signed: Zev Conde MD at 19:25 EDT ,
[2021-11-03 19:28] LABS: AST(SGOT) 33 U/L (15-37); Alanine Aminotransfer ALT/SGPT 43 U/L (13-56); Albumin, Serum 3.9 g/dL (3.2-5.0); Alkaline Phosphatase 76 U/L (45-117); Anion Gap 10 (5-15); BUN 44 mg/dL (7-18); BUN/Creat Ratio 33.8 RATIO (10-20); Calcium,Total 9.8 mg/dL (8.5-10.1); Chloride 100 mmol/L (98-107); EST Glomerular Filtration Rate 42 mL/min (>60); Est Glom Filt Rate - Afr Amer 51 mL/min (>60); Estimated Creatinine Clearance 28.22 ml/min; Globulin 3.9 g/dL (2.2-4.2); Glucose 95 mg/dL (74-106); Potassium 3.9 mmol/L (3.5-5.1); Protein, Total 7.8 g/dL (6.4-8.2); Sodium Level 139 mmol/L (136-145)
[2021-11-03 19:54] VITALS: BP 129/88; PULSE 88; RESP 18; TEMP 36.6; O2SAT 95
--- NOTE | 2021-11-03 19:54 | HP.PCM.HOS_ITS ---
HPI - General General Date of Admission: 11/03/21 Date of Service: 11/03/21 Chief Complaint: Left-sided weakness, cervical disc rupture [facility] Narrative NAHUN CHAPMAN, is a 76 F who presents to the emergency room at [facility] for evaluation of left-sided weakness that has been going on since April of last year, she has had work-up done as an outpatient including a visit from a neurologist today who had ordered an MRI of her neck. The MRI came back showing disc rupture at C3-C4 with left spinal cord compression. Keaton peterson lives in a long term because of developmental delay, she does make her own decisions however. Labs obtained in the emergency room showed a normal CBC, patient's chemistry profile was abnormal for a creatinine of 1.30, BUN was 44, and patient's chest x-ray showed no acute findings. The emergency room physician contacted spinal surgery and Dr. Freedman has agreed to see the patient tomorrow and the patient will need surgery for the C3-C4 disc rupture. Patient will be admitted to [place] [address], she was given IV corticosteroids in the emergency room, according to Dr. Freedman, this does not need to be continued on the floor [facility] Medical History (Updated 11/03/21 @ 19:[address] Gutierrez Du MD) Acute cystitis Arthritis ASD (atrial septal defect) Atherosclerosis Atrophic vaginitis Back problem Chronic bronchitis Dermatophytosis Diabetes Disorder of bone and cartilage Dysuria History of high blood pressure Hypertension Macular degeneration Mixed hyperlipidemia Onychomycosis Pseudophakia Stress incontinence Stroke TIA (transient ischemic attack) Tobacco use disorder Urethrocele Home Medications atorvastatin 40 mg PO QHS 07/28/21 [History Last Taken 11/02/21] citalopram 10 mg PO QHS 07/28/21 [History Last Taken 11/02/21] metformin 500 mg PO BID 07/28/21 [History Last Taken 11/03/21] aspirin 81 mg tablet,delayed release 81 mg PO DAILY 10/05/21 [History Last Taken 11/03/21] famotidine 40 mg tablet 40 mg PO DAILY 10/05/21 [History Last Taken 11/03/21] gabapentin 100 mg capsule 100 mg PO TID 10/05/21 [History Last Taken 11/03/21] cholecalciferol (vitamin D3) [Vitamin D3] 25 mcg PO DAILY 11/03/21 [History Last Taken 11/03/21] glycopyrrolate-formoterol [Bevespi Aerosphere] 2 puff INHALATION BID 11/03/21 [History Last Taken 11/03/21] valsartan-hydrochlorothiazide 1 tab PO QHS 11/03/21 [History Last Taken 11/02/21] Allergy/AdvReac Type Severity Reaction Status Date / Time amitriptyline Allergy Rash Verified 11/03/21 17:43 Penicillins Allergy Hives Verified 11/03/21 17:43 codeine AdvReac Intermediate Other Verified 11/03/21 17:43 Surgical History (Updated 10/05/21 @ 09:36 by Huong Perdomo) No history of previous surgery Social History housing: other details: [facility] Smoking Status: Former smoker alcohol intake: never substance use type: does not use what type of physical activity do you participate in: none ROS Constitutional Constitutional: Denies anorexia, change in weight, chills, fatigue, fever(s), night sweats or weakness Eyes Eyes: Denies blurry vision, change in vision, discharge from eye(s) or eye pain Cardiovascular Cardiovascular: Denies chest pain, claudication, dyspnea on exertion, edema, lightheadedness or palpitations Respiratory/Chest Respiratory/Chest: Denies cough, dyspnea, hemoptysis, productive cough, shortness of breath at rest or shortness of breath with exertion Gastrointestinal Gastrointestinal: Denies abdominal pain, constipation, diarrhea, dyspepsia, hematemesis, hematochezia, melena, nausea or vomiting Genitourinary Genitourinary: Denies dysuria, hematuria, urinary frequency, urinary hesitancy, urinary incontinence or urinary urgency Musculoskeletal Musculoskeletal: Denies back pain, joint pain, joint stiffness, joint swelling, myalgias or neck pain Neurologic Neurologic: Reports focal weakness and other Details: Patient has complained of increasing left-sided weakness since April of last year, this weakness has increased over the last several weeks. ; Denies abnormal gait, abnormal speech, dizziness, headache(s), loss of vision, numbness, other visual disturbances, paresthesias, syncope or tingling Psychiatric Psychiatric: Reports other Details: History of developmental delay ; Denies anxiety, cognitive impairment, depression, irritability, mood swings or suicidal ideation Endocrine Endocrinology: Denies change in body appearance, cold intolerance, excessive sweating, heat intolerance, polydipsia or polyuria Hematologic/Lymphatic Hematologic/Lymphatic: Denies none, anemia, easy bleeding, easy bruising or ly mphadenopathy Allergic/Immunologic Allergic/Immunologic: Denies rhinitis, urticaria, eczemia or asthma Vital Signs Vital Signs Vital Signs: 11/03/21 17:46 11/03/21 18:20 Temperature 97.0 F L Temperature Source Temporal Pulse Rate 88 Respiratory Rate 18 Respiratory Effort Normal Respiratory Pattern Normal Blood Pressure 113/77 Blood Pressure Mean 89 Pulse Ox 98 Oxygen Delivery Method Room Air Weight Weight: 68.039 kg Body Mass Index (BMI) 28.3 Physical Exam Const alert, oriented x3, no apparent distress and average body habitus Constitutional Narrative: Patient's shows signs of mild cognitive impairment. General Appearance: cooperative, well kempt and well developed Orientation / Consciousness: awake, oriented to person, oriented to place and oriented to time HEENT normocephalic and moist oral mucous membranes; Negative for head/scalp atraumatic or hearing grossly normal bilaterally Eyes PERRL, EOMs intact bilaterally and conjunctivae normal Neck nuchal rigidity, supple, no JVD, thyroid normal and no carotid bruits General: trachea midline Resp normal respiratory effort, no retractions, no use of accessory muscles and clear to auscultation bilaterally Auscultation: Negative for rales, rhonchi or wheezes Cardio regular rate, regular rhythm, S1 normal heart sound, S2 normal heart sound, no murmurs, no rub and no gallops GI normal to inspection, nondistended, normoactive bowel sounds, soft to palpation, non-tender and non-distended Extremity no clubbing, cyanosis or edema Skin no rashes or lesions noted General Skin Exam: no breakdown Neuro oriented x3, CN's II-XII intact bilaterally and no sensory deficits noted Neuro Narrative: Patient has left-sided weakness more markedly in her left arm, patient was not ambulated during my examination, 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 as compared to the right hand Sensorium / Orientation: awake and alert Speech: speech normal Psych Psych Narrative: Patient has signs of mild cognitive impairment Results Lab / Micro Data Result Diagrams: 11/03/21 18:35 11/03/21 18:35 Labs: Laboratory Results - last 24 hr 11/03/21 18:35: WBC 8.5, RBC 4.47, Hgb 14.9, Hct 41.7, MCV 93.3, MCH 33.3 H, MCHC 35.7, RDW Std Deviation 40.5, RDW Coeff of Marcel 11.8, Plt Count 189, MPV 10.3, Immature Gran % (Auto) 0.600, Neut % (Auto) 58.6, Lymph % (Auto) 24.5, Stanton % (Auto) 11.0 H, Eos % (Auto) 5.1 H, Baso % (Auto) 0.2, Absolute Neuts (auto) 5.0, Absolute Lymphs (auto) 2.08, Nucleated RBC % 0 11/03/21 18:35: PT 13.2, INR 1.0, APTT 28.8 11/03/21 18:35: Sodium 139, Potassium 3.9, Chloride 100, Carbon Dioxide 29.0, Anion Gap 10, BUN 44 H, Creatinine 1.30 H, Estim Creat Clear Calc 28.22, Est GFR (MDRD) Af Amer 51 L, Est GFR (MDRD) Non-Af 42 L, BUN/Creatinine Ratio 33.8 H, Glucose 95, Calcium 9.8, Total Bilirubin 0.40, AST 33, ALT 43, Alkaline P hosphatase 76, Total Protein 7.8, Albumin 3.9, Globulin 3.9, Albumin/Globulin Ratio 1.0 Micro: Microbiology 11/03/21 18:40 Nasal Secretion SARS-CoV-2 Antigen (Rapid) - Final Radiology Impression Chest X-Ray 11/03/21 19:10 IMPRESSION: There are no acute findings. Electronically Signed: Zev Conde MD at 19:25 EDT , Assessment & Plan Assessment/Plan (1) Cervical spinal cord compression: PLAN: 1. Left ventral spinal cord compression at the C3-C4 disc space level secondary to extruded disc fragment-patient will be admitted to [facility] [place] [place] 3, she will undergo surgery tomorrow morning for the disc rupture. #2 type 2 diabetes-patient's blood sugars will be monitored, sliding scale insulin will be used if necessary #3 chronic kidney disease stage IIIb-secondary to type 2 diabetes-renal function will be monitored as necessary #4 essential hypertension-patient will remain on her present medications #5 developmental delay by history-complicates care, prognosis, and recovery- patient lives currently in a long term #6 asthma-patient is currently on an inhaler as an outpatient, she will be placed on Pulmicort aerosols while in the hospital #7 hyperlipidemia-patient is on atorvastatin I had a discussion with the patient concerning her CODE STATUS, she would like to be a full code, she seems to understand what this entails. Charges/Coding Visit Charges Inpatient E&M: 79008 Init Hosp L3
[2021-11-03 21:57] VITALS: BMI 26.5
[2021-11-03 22:01] VITALS: BP 130/71; PULSE 92; RESP 18; TEMP 36.9; O2SAT 95
[2021-11-04] VITALS (12 sets, daily range): BP systolic 94–131; BP diastolic 40–74; PULSE 62–99; RESP 16–18; TEMP 36.4–36.9; O2SAT 96–100; BMI 26.5
[2021-11-04] MEDS: hydroCHLOROthiazide 12.5mg 12.5 MG PO (00:16)
[2021-11-04] MEDS: Gabapentin 100 MG Capsule PO ×2 (00:16→23:35)
[2021-11-04] MEDS: Atorvastatin Calcium 40 MG Tablet PO ×2 (00:17→23:16)
[2021-11-04] MEDS: Losartan Potassium 100 MG Tablet PO (00:17)
[2021-11-04] MEDS: Citalopram 10 MG Tablet PO ×2 (00:17→23:16)
[2021-11-04] MEDS: Ipratropium/Albuterol Sulfate 3 ML AMPUL.NEB INHALATION ×2 (07:12→19:36)
--- NOTE | 2021-11-04 07:13 | CONS.ORTHO ---
HPI Consult Data Date of Consult: 11/04/21 HPI Narrative Reason for Consultation: Left upper and bilateral lower extremity paresthesias and weakness HPI Narrative: NAHUN CHAPMAN, is a 76 F who presents with paresthesias and weakness of the left upper extremity and bilateral lower extremities. She has a history of mental deficiency and is currently lying in bed resting comfortably. She complains of decreased sensation globally in the left upper extremity and bilateral lower extremities. Sensation and motor of the right upper extremity appears to be intact grossly. She is a poor historian regarding these complaints but review of her medical records show that they have been going on since at least April of last year and have been worsening steadily since June. She had an outpatient visit with neurology and was subsequently sent to the emergency department at [facility] yesterday. She was seen and evaluated and found to have physical exam findings consistent with myelopathy. She is also been having incontinence of the bowel and bladder and does not have rectal tone on physical exam. A cervical MRI was performed showing severe cervical stenosis and she was subsequently admitted. Spine surgery has been consulted for evaluation management. [facility] Medical History (Updated 11/04/21 @ 07:[address] Roland Freedman, DO) Acute cystitis Arthritis ASD (atrial septal defect) Atherosclerosis Atrophic vaginitis Back problem Chronic bronchitis Dermatophytosis Diabetes Disorder of bone and cartilage Dysuria History of high blood pressure Hypertension Macular degeneration Mixed hyperlipidemia Onychomycosis Pseudophakia Stress incontinence Stroke TIA (transient ischemic attack) Tobacco use disorder Urethrocele Home Medications atorvastatin 40 mg PO QHS 07/28/21 [History Last Taken 11/02/21] citalopram 10 mg PO QHS 07/28/21 [History Last Taken 11/02/21] metformin 500 mg PO BID 07/28/21 [History Last Taken 11/03/21] aspirin 81 mg tablet,delayed release 81 mg PO DAILY 10/05/21 [History Last Taken 11/03/21] famotidine 40 mg tablet 40 mg PO DAILY 10/05/21 [History Last Taken 11/03/21] gabapentin 100 mg capsule 100 mg PO TID 10/05/21 [History Last Taken 11/03/21] cholecalciferol (vitamin D3) [Vitamin D3] 25 mcg PO DAILY 11/03/21 [History Last Taken 11/03/21] glycopyrrolate-formoterol [Bevespi Aerosphere] 2 puff INHALATION BID 11/03/21 [History Last Taken 11/03/21] valsartan-hydrochlorothiazide 1 tab PO QHS 11/03/21 [History Last Taken 11/02/21] Allergy/AdvReac Type Severity Reaction Status Date / Time amitriptyline Allergy Rash Verified 11/03/21 17:43 Penicillins Allergy Hives Verified 11/03/21 17:43 codeine AdvReac Intermediate Other Verified 11/03/21 17:43 Surgical History (Updated 10/05/21 @ 09:36 by Huong Perdomo) No history of previous surgery Social History housing: other details: [facility] Smoking Status: Former smoker alcohol intake: never substance use type: does not use what type of physical activity do you participate in: none Vital Signs Vital Signs Vital Signs: 11/03/21 17:46 11/03/21 18:20 11/03/21 19:49 Temperature 97.0 F L Temperature Source Temporal Pulse Rate 88 Respiratory Rate 18 Respiratory Effort Normal Normal Non-Labored Respiratory Pattern Normal Blood Pressure 113/77 Blood Pressure Mean 89 Blood Pressure Source Blood Pressure Position Blood Pressure Location Pulse Ox 98 Oxygen Delivery Method Room Air Room Air 11/03/21 19:54 11/03/21 22:01 11/04/21 05:30 Temperature 97.9 F 98.5 F 97.8 F Temperature Source Temporal Oral Oral Pulse Rate 88 92 62 Respiratory Rate 18 18 18 Respiratory Effort Respiratory Pattern Blood Pressure 129/88 H 130/71 H 121/74 H Blood Pressure Mean 101 90 89 Blood Pressure Source Monitor Monitor Blood Pressure Position Semi-Fowlers Supine Blood Pressure Location Left Arm Right Arm Pulse Ox 95 95 98 Oxygen Delivery Method Room Air Room Air Room Air Weight Weight: 140 lb 6.951 oz Body Mass Index (BMI) 26.5 Physical Exam Const alert, oriented x3 and no apparent distress General Appearance: cooperative, comfortable and well kempt HEENT normocephalic and head/scalp atraumatic Eyes EOMs intact bilaterally and conjunctivae normal Neck full ROM General: normal visual inspection Chest inspection of chest normal Resp normal respiratory effort and normal air movement Effort and Inspection: able to speak in complete sentences Cardio regular rate and peripheral pulses 2+ throughout GI soft to palpation, non-tender and non-distended Back/Spine no CVA tenderness Cervical Spine: cervical ROM normal Thoracic Spine / Upper Back: normal to inspection Lumbar Spine / Lower Back: normal to inspection Extremity Extremity Narrative: Examination of the right upper extremity shows sensation and motor intact grossly with good functional strength, normal reflexes throughout. Negative Kristina sign Examination of the left upper extremity shows decreased sensation globally as well as 3+/4 - strength in shoulder abduction, elbow flexion and extension, wrist flexion and extension, finger flexion and abduction, diminished reflexes throughout. Negative Kristina sign. Examination of the bilateral lower extremity shows decreased sensation globally. 4 - strength in hip flexion, knee extension, 4 out of 5 strength in ankle dorsiflexion, EHL, and ankle plantarflexion. Diminished reflexes throughout. Sustained ankle clonus in the bilateral lower extremities Skin no rashes or lesions noted General Skin Exam: no breakdown Neuro oriented x3 and CN's II-XII intact bilaterally Motor Exam: muscle tone normal throughout Lab / Micro Data Result Diagrams: 11/03/21 18:35 11/03/21 18:35 Labs: Laboratory Results - last 24 hr 11/03/21 18:35: WBC 8.5, RBC 4.47, Hgb 14.9, Hct 41.7, MCV 93.3, MCH 33.3 H, MCHC 35.7, RDW Std Deviation 40.5, RDW Coeff of Marcel 11.8, Plt Count 189, MPV 10.3, Immature Gran % (Auto) 0.600, Neut % (Auto) 58.6, Lymph % (Auto) 24.5, [place] % (Auto) 11.0 H, Eos % (Auto) 5.1 H, Baso % (Auto) 0.2, Absolute Neuts (auto) 5.0, Absolute Lymphs (auto) 2.08, Nucleated RBC % 0 11/03/21 18:35: PT 13.2, INR 1.0, APTT 28.8 11/03/21 18:35: Sodium 139, Potassium 3.9, Chloride 100, Carbon Dioxide 29.0, Anion Gap 10, BUN 44 H, Creatinine 1.30 H, Estim Creat Clear Calc 28.22, Est GFR (MDRD) Af Amer 51 L, Est GFR (MDRD) Non-Af 42 L, BUN/Creatinine Ratio 33.8 H, Glucose 95, Calcium 9.8, Total Bilirubin 0.40, AST 33, ALT 43, Alkaline Phosphatase 76, Total Protein 7.8, Albumin 3.9, Globulin 3.9, Albumin/Globulin Ratio 1.0 Micro: Microbiology 11/03/21 18:40 Nasal Secretion SARS-CoV-2 Antigen (Rapid) - Final Radiology Impression Chest X-Ray 11/03/21 19:10 IMPRESSION: There are no acute findings. Electronically Signed: Zev Conde MD at 19:25 EDT , Assessment & Plan Assessment/Plan (1) Cervical spinal cord compression: PLAN: I had a lengthy discussion with the patient. I reviewed her imaging with her. She does have significant degenerative changes at multiple levels of the cervical spine as well as a central/left paracentral disc herniation at C3-4 causing severe central canal stenosis. Physical exam findings consistent with myelopathy, which according to her medical history has likely been worsening since June. After discussing the risk benefits and alternatives and answering all of her questions I recommend a C3-4 anterior cervical discectomy and fusion. We discussed the procedure in detail along with expected outcome and recovery and she agrees to proceed. Plan is for surgery today. She understands and agrees with the treatment plan. (2) Myelopathy: (3) Cervical stenosis of spine: (4) Cervical spondylosis: (5) Cervical disc disorder:
[2021-11-04] MEDS: 0.9% Normal Saline 1,000 ML 75 ML IV (07:50)
--- NOTE | 2021-11-04 07:53 | PN.ORTHO_ITS ---
Subjective Subjective The patient was seen and examined postoperatively in the PACU. She is resting comfortably. Her pain is controlled. She denies any other complaints. Objective Data Objective Data Vital Signs: Vital Signs Temp Pulse Resp BP Pulse Ox 97.8 F 74 16 121/74 H 98 11/04/21 05:30 11/04/21 07:12 11/04/21 07:12 11/04/21 05:30 11/04/21 05:30 Oxygen Delivery Method Room Air Weight: 140 lb 6.951 oz Body Mass Index (BMI) 26.5 Lab / Micro Data Result Diagrams: 11/03/21 18:35 11/03/21 18:35 Labs: Laboratory Results - last 24 hr 11/03/21 18:35: WBC 8.5, RBC 4.47, Hgb 14.9, Hct 41.7, MCV 93.3, MCH 33.3 H, MCHC 35.7, RDW Std Deviation 40.5, RDW Coeff of Marcel 11.8, Plt Count 189, MPV 10.3, Immature Gran % (Auto) 0.600, Neut % (Auto) 58.6, Lymph % (Auto) 24.5, Divide % (Auto) 11.0 H, Eos % (Auto) 5.1 H, Baso % (Auto) 0.2, Absolute Neuts (auto) 5.0, Absolute Lymphs (auto) 2.08, Nucleated RBC % 0 11/03/21 18:35: PT 13.2, INR 1.0, APTT 28.8 11/03/21 18:35: Sodium 139, Potassium 3.9, Chloride 100, Carbon Dioxide 29.0, Anion Gap 10, BUN 44 H, Creatinine 1.30 H, Estim Creat Clear Calc 28.22, Est GFR (MDRD) Af Amer 51 L, Est GFR (MDRD) Non-Af 42 L, BUN/Creatinine Ratio 33.8 H, Glucose 95, Calcium 9.8, Total Bilirubin 0.40, AST 33, ALT 43, Alkaline Phosphatase 76, Total Protein 7.8, Albumin 3.9, Globulin 3.9, Albumin/Globulin Ratio 1.0 Micro: Microbiology 11/03/21 18:40 Nasal Secretion SARS-CoV-2 Antigen (Rapid) - Final Radiography Diagnostic Testing: Radiology Impression Chest X-Ray 11/03/21 19:10 IMPRESSION: There are no acute findings. Electronically Signed: Zev Conde MD at 19:25 EDT , Physical Exam Const alert, oriented x3 and no apparent distress General Appearance: cooperative and comfortable HEENT normocephalic and head/scalp atraumatic Eyes EOMs intact bilaterally and conjunctivae normal Neck Neck Narrative: Dressing clean dry and intact General: normal visual inspection Chest inspection of chest normal and palpation of chest normal Resp normal respiratory effort and normal air movement Cardio regular rate, regular rhythm and peripheral pulses 2+ throughout GI soft to palpation, non-tender and non-distended Back/Spine Thoracic Spine / Upper Back: normal to inspection Lumbar Spine / Lower Back: normal to inspection Extremity normal to inspection, normal capillary refill, no clubbing, cyanosis or edema and no calf tenderness Extremity Narrative: Right upper extremity: Sensation and motor are intact grossly. Pulses and reflexes are normal Left upper extremity: Sensation decreased globally. Generalized weakness consistent with preoperative exam. No upper motor neuron signs noted. Pulses and reflexes are normal. Bilateral lower extremities: Sensation decreased globally. Generalized weakness consistent with preoperative exam. Sustained clonus in the bilateral ankles. Pulses and reflexes are normal Skin no rashes or lesions noted Assessment & Plan Assessment/Plan (1) Cervical disc disorder: (2) Cervical spondylosis: (3) Cervical stenosis of spine: (4) Myelopathy: (5) Cervical spinal cord compression: PLAN: Okay to return to floor Pain control and mobilization as tolerated. Up with assistance Keep dressing clean dry and intact. Continue antibiotics while drain in place. Reinforce dressing as needed
--- NOTE | 2021-11-04 07:53 | PCM.OPRPT ---
Problems Associated Problem List Diagnoses (1) Cervical disc disorder: (2) Cervical spondylosis: (3) Cervical stenosis of spine: (4) Myelopathy: (5) Cervical spinal cord compression: Report of Operation Date of Procedure: 11/04/21 Pre-Operative Diagnosis: 1. Cervical stenosis, C3-4 with spondylosis 2. Cervical degenerative disc disease, C3-4 3. Cervical herniated disc C3-4 4. Myelopathy Post-Operative Diagnosis: 1. Cervical stenosis, C3-4 with spondylosis 2. Cervical degenerative disc disease, C3-4 3. Cervical herniated disc C3-4 4. Myelopathy Surgery/Procedure Performed:: 1. C3-4 anterior cervical discectomy, osteophytectomy, and decompression of the spinal canal 2. C3-4 anterior cervical fusion 3. Insertion of intervertebral biomechanical device x1 4. Structural allograft for cervical fusion 5. Anterior plate fixation 6. Neuro monitoring bilateral upper and bilateral lower extremities Description of Surgical Findings:: The patient is a 76-year-old female with history of mental deficiency who presented to the emergency department with left upper extremity and bilateral lower extremity paresthesias and weakness. Image studies confirm the above diagnoses. The patient has opted for operative intervention understanding the risk to include, but not limited to, infection, bleeding, damage to nerves arteries and veins, paralysis, possibility of spinal fluid leak, nerve palsy, nonunion, hardware failure, continued pain, need for further surgery, dysphonia, dysphagia, deep vein thrombosis, pulmonary embolism, risk of stroke, heart attack or . The patient was identified in the preoperative holding area. There she received preoperative IV antibiotics, clindamycin, and was then transferred to the operative suite. Once in the operative suite after general endotracheal anesthesia was established, the patient was placed supine on the operating table. The arms were padded and tucked at the side. A rolled towel was placed behind the neck to place and slight lordosis. The neck was prepped and draped in a standard surgical fashion. Bear hugger's were not turned on until the drapes were applied and sealed with Ioban. A transverse incision to the left of midline was made and taken to the level of the platysma. The platysma was divided and superficial, deep cervical and prevertebral fascia were divided. The longus coli were elevated bilaterally with Bovie cautery and deep retractors were placed. A [place] pin was placed through the body of C3 and C4 with appropriate distraction. A knife was utilized to perform an annulotomy. Disc material was removed with curettes and pituitaries. Cartilaginous endplates were taken down with a power bur back to the level of the posterior longitudinal ligament. The posterior longitudinal ligament was taken down with a [place] and osteophytectomies and foraminotomies were performed completing the decompression of the spinal canal. An appropriate sized intervertebral peek cage device measuring 5 mm was packed with morselized cancellous allograft and impacted into position completing the anterior cervical fusion at C3-4. The [place] pins were removed. A plate was placed with 4 x 12 mm screws through the vertebral bodies of C3 and C4. The incision was thoroughly irrigated. A [place] drain was placed. The platysma was reapproximated with 2-0 Vicryl, subcutaneous with 2-0 Vicryl, skin with 4-0 Monocryl. A sterile dressing was applied with 4 x 4's ABD and tape. Sponge instrument needle counts were correct at the end of the case. Neurophysiologic monitoring was maintained at baseline throughout the duration of the case. The patient was extubated and taken to the PACU without incident. Priscilla Costello PA-C was present during the entire duration of the case and necessary for critical parts of the case including retraction and closure. Surgeon: Roland Freedman educational advisor: Priscilla Costello Type of Anesthesia: General Drains: Gagandeep Estimated Blood Loss (mL): 10cc Fluids Replaced: 1200 cc Grafts/Implants Used: Wish bone, DBM Complications None Admit VTE Documentation VTE Present on Admission: No
[2021-11-04 09:46] LABS: Bedside Glucose 186 mg/dL (74-106)
--- NOTE | 2021-11-04 10:31 | EKG12_ITS ---
Test Reason : PREOP Blood Pressure : / mmHG Vent. Rate : 077 BPM Atrial Rate : 077 BPM P-R Int : 170 ms QRS Dur : 072 ms QT Int : 416 ms P-R-T Axes : 036 -07 057 degrees QTc Int : 470 ms Normal sinus rhythm Low voltage QRS Borderline ECG When compared with ECG of 27-NOV-2013 22:02, No significant change was found Confirmed by YOLANDA AKHTAR, BLANQUITA ([id number]), avid editor MARCELA HANNA ([id number]) on 11/05/2021 11:05:24 A M Referred By: HOWIE Confirmed By:EMILI GUERRERO MD
--- NOTE | 2021-11-04 10:31 | PN.HOSP_ITS ---
Subjective Subjective Patient seen and examined. She has no active complaints today. Her pain was well controlled. She still does have some numbness in her left upper extremity. Review of systems otherwise negative. She is due for surgery today. Objective Data Objective Data Vital Signs: Vital Signs Temp Pulse Resp BP Pulse Ox 97.8 F 91 18 103/40 L 96 11/04/21 08:06 11/04/21 08:06 11/04/21 08:06 11/04/21 08:06 11/04/21 08:06 Oxygen Delivery Method Room Air Weight: 140 lb 6.951 oz Body Mass Index (BMI) 26.5 Lab / Micro Data Result Diagrams: 11/03/21 18:35 11/03/21 18:35 Labs: Laboratory Results - last 24 hr 11/03/21 18:35: WBC 8.5, RBC 4.47, Hgb 14.9, Hct 41.7, MCV 93.3, MCH 33.3 H, MCHC 35.7, RDW Std Deviation 40.5, RDW Coeff of Marcel 11.8, Plt Count 189, MPV 10.3, Immature Gran % (Auto) 0.600, Neut % (Auto) 58.6, Lymph % (Auto) 24.5, [place] % (Auto) 11.0 H, Eos % (Auto) 5.1 H, Baso % (Auto) 0.2, Absolute Neuts (auto) 5.0, Absolute Lymphs (auto) 2.08, Nucleated RBC % 0 11/03/21 18:35: PT 13.2, INR 1.0, APTT 28.8 11/03/21 18:35: Sodium 139, Potassium 3.9, Chloride 100, Carbon Dioxide 29.0, An ion Gap 10, BUN 44 H, Creatinine 1.30 H, Estim Creat Clear Calc 28.22, Est GFR (MDRD) Af Amer 51 L, Est GFR (MDRD) Non-Af 42 L, BUN/Creatinine Ratio 33.8 H, Glucose 95, Calcium 9.8, Total Bilirubin 0.40, AST 33, ALT 43, Alkaline Phosphatase 76, Total Protein 7.8, Albumin 3.9, Globulin 3.9, Albumin/Globulin Ratio 1.0 11/04/21 09:40: POC Glucose 186 H Micro: Microbiology 11/03/21 18:40 Nasal Secretion SARS-CoV-2 Antigen (Rapid) - Final Radiography Diagnostic Testing: Radiology Impression Chest X-Ray 11/03/21 19:10 IMPRESSION: There are no acute findings. Electronically Signed: Zev Conde MD at 19:25 EDT Reading Location ID and State: [facility] / [place] , Service support , Physical Exam Const alert, oriented x3 and no apparent distress Exam Limitations: no limitations HEENT head/scalp atraumatic and moist oral mucous membranes Head and Scalp: normocephalic Eyes PERRL, EOMs intact bilaterally and conjunctivae normal Neck no lymphadenopathy and supple Resp normal respiratory effort, no retractions, no use of accessory muscles and clear to auscultation bilaterally Cardio regular rate, regular rhythm, S1 normal heart sound, S2 normal heart sound and no murmurs GI normal to inspection, nondistended, normoactive bowel sounds, soft to palpation, non-tender and non-distended Extremity normal to inspection, full ROM and no clubbing, cyanosis or edema Peripheral Pulses: Yes pulses 2+ throughout Skin no rashes or lesions noted Neuro oriented x3, CN's II-XII intact bilaterally and moves all extremities Neuro Narrative: power in LUE and LLE mildly reduced at 4/5, no tingling or numbness Sensorium / Orientation: awake and alert Psych affect normal Assessment & Plan Assessment/Plan (1) Cervical spinal cord compression: PLAN: #Cervical cord compression * imaging showed left ventral cord compression at C3-C4 disc space level secondary to extruded disc fragment * orthopedic surgery on board * for surgery today * pain is well controlled * #Type 2 diabetes mellitus * on ISS. Accuchecks ACHS * metformin on hold. * #Hypertension: on valsartan/HCTZ. #Asthma: not in exacerbation. On breathing treatment with bronchodilators #Hyperlipidemia: on statin #CKD stage III: Cr is 1.30. #MRDD: stable. Lives in a nursing home DVT prophylaxis: SCDs Charges/Coding Visit Charges Inpatient E&M: 30619 Subs Hosp L2
[2021-11-04] MEDS: Clindamycin 900 MG/50 ML BAG 75 MG IV ×2 (14:30→23:10)
--- NOTE | 2021-11-04 14:45 | RAD_ITS ---
STUDY: CERVICAL SPINE X-RAYS IN THE OPERATING ROOM OF 1620 HOURS ON 11/04/2021 REASON FOR EXAM: 36-year-old female in the operating room for cervical fusion. TECHNIQUE: 2 view(s) of the cervical spine were obtained. COMPARISON: None FINDINGS: Documentation of anterior C3-4 anterior interbody fusion with a spacer in the C3-C4 intervertebral disc space. Skin clips are noted anteriorly. RAD/Cerv Spine 2 or 3 Views IMPRESSION: Documentation of anterior C3-4 anterior interbody fusion with a spacer in the C3-C4 intervertebral disc space. Electronically Signed: Reynaldo Gamble MD at 23:17 EDT ,
[2021-11-04] MEDS: THROMBIN (RECOMBINANT) 20,000 UNIT VIAL 20000 UNIT TOPICAL (15:04)
--- NOTE | 2021-11-04 15:27 | CASEMGMT ---
Social Work SW received call from Toshia Anderson who is the residential fee appraiser at [facility]. Toshia provided information regarding pt. PCP: Gaurang Insurance: [facility] Living Will/HPOA: Pt does not have a health care POA or a living will. Pt does not have a guardian. Pt is her own decision maker LNOK: Toshia states pt has 3 children which are all compromised. She has a nephew Nakul that pt sees 1-2 times a year. Toshia is uncertain of Nakul's last name. Living Arrangements: Pt lives in a DD jail of [facility]. The home has a ramp entrance and is one story. Per Toshia, pt requires full assistance with all ADLs and there is one direct care staff member in the home 09/01. HHC/SNF: none prior DD Services: Pt does have a Student Support Counselor at the [employer], Karen Simon. Candelario Vazquez is medical Coordinator at [facility] and Toshia Anderson is the Hand Decorator. Pt lived independently with her spouse until his in 2016. After of spouse she moved into jail. One staff member cares for 4 individuals living in the jail and Toshia states that staff is fearful that they will not be able to properly or safely care for pt after surgery. Toshia states that pt may need short term SNF placement at time of discharge with goal of returning to her jail when she is at previous level of care. Toshia also states that pt is her own decision maker. TIFFANIE attempted to meet with pt regarding SNF placement. Pt is out of room at surgery. TIFFANIE will followup with pt tomorrow. NISH Shannon
[2021-11-04] MEDS: Lactated Ringers 1,000 ML 100 ML IV ×2 (17:00→23:10)
[2021-11-04 17:25] LABS: Bedside Glucose 166 mg/dL (74-106)
[2021-11-04] MEDS: Nystatin Powder 15gm Bottle 1 APPLIC TOPICAL (23:15)
[2021-11-04] MEDS: Insulin Lispro 100 UNIT/ML INSULN.PEN SC (23:29)
[2021-11-05] VITALS (9 sets, daily range): BP systolic 102–119; BP diastolic 54–59; PULSE 78–103; RESP 16–20; TEMP 36.6–36.9; O2SAT 92–97; BMI 26.5
[2021-11-05 00:36] LABS: Bedside Glucose 209 mg/dL (74-106)
[2021-11-05 03:31] LABS: Bedside Glucose 189 mg/dL (74-106)
[2021-11-05 05:20] LABS: Absolute Lymphocyte Count 0.84 X10^3/uL (0.83-4.51); Absolute Neutrophil Count 12.3 X10^3/uL (2.0-7.7); Basophil# 0.02 X10^3/uL; Basophil% 0.1 % (0-1); Hematocrit 32.9 % (37-47); Lymphocyte # 0.84 X10^3/ul (0.83-4.51); Lymphocyte % 5.8 % (19-41); Mean Corp Hgb Conc 33.4 g/dL (32-36); Mean Corpuscular Hgb 32.4 pg (27.0-32.0); Mean Corpuscular Volume 96.8 fL (81-99); Mean Platelet Vol. 10.6 fl (6.2-12.0); Monocyte# 1.18 X10^3/uL; Monocyte% 8.2 % (0-10); NRBC Flagged by Analyzer 0 % (0-5); Neutrophil # 12.25 X10^3/uL (2.7-7.7); Neutrophil % 85.2 % (47-70); Platelet Count 148 K/mm3 (150-450); RBC Distribution Width CV 12.2 % (11.6-14.6); RBC Distribution Width SD 42.8 fl (35.1-43.9); White Blood Count 14.4 K/mm3 (4.4-11.0)
[2021-11-05 05:49] LABS: Anion Gap 7 (5-15); BUN 38 mg/dL (7-18); BUN/Creat Ratio 30.2 RATIO (10-20); Calcium,Total 8.1 mg/dL (8.5-10.1); Chloride 107 mmol/L (98-107); Creatinine, Serum 1.26 mg/dL (0.55-1.02); EST Glomerular Filtration Rate 44 mL/min (>60); Est Glom Filt Rate - Afr Amer 53 mL/min (>60); Estimated Creatinine Clearance 29.11 ml/min; Glucose 178 mg/dL (74-106); Potassium 4.5 mmol/L (3.5-5.1); Sodium Level 139 mmol/L (136-145)
[2021-11-05] MEDS: Insulin Lispro 100 UNIT/ML INSULN.PEN SC (06:26)
[2021-11-05] MEDS: Gabapentin 100 MG Capsule PO ×2 (06:31→15:14)
[2021-11-05] MEDS: traMADol 50 MG Tablet PO (06:31)
--- NOTE | 2021-11-05 07:34 | PN.ORTHO_ITS ---
Subjective Subjective The patient was seen and examined postoperative day 1. She is lying in bed resting comfortably. She is having some mild dysphagia and dysphonia. Otherwise her pain is controlled with medications. She states that her left upper extremity and bilateral lower extremity sensation has improved since surgery. She denies any other acute numbness tingling weakness or changes in bowel or bladder function. Objective Data Objective Data Vital Signs: Vital Signs Temp Pulse Resp BP Pulse Ox 98.2 F 85 16 105/59 L 95 11/05/21 02:56 11/05/21 02:56 11/05/21 02:56 11/05/21 02:56 11/05/21 02:56 Oxygen Flow Rate (L/min) 2 Oxygen Delivery Method Nasal Cannula Weight: 140 lb 6.951 oz Body Mass Index (BMI) 26.5 Intake & Output: Intake and Output for Last 24 Hours 11/03/21 11/04/21 11/05/21 23:59 23:59 23:59 Intake Total 1716.67 / 1716.67 Output Total 100 / 450 550 / 550 Balance 1616.67 / 1266.67 -550 / -550 Lab / Micro Data Result Diagrams: 11/05/21 05:08 11/05/21 05:08 Labs: Laboratory Results - last 24 hr 11/04/21 09:40: POC Glucose 186 H 11/04/21 17:21: POC Glucose 166 H 11/04/21 22:57: POC Glucose 209 H 11/05/21 03:00: POC Glucose 189 H 11/05/21 05:08: WBC 14.4 H, RBC 3.40 L, Hgb 11.0 L, Hct 32.9 L, MCV 96.8, MCH 32.4 H, MCHC 33.4 D, RDW Std Deviation 42.8, RDW Coeff of Marcel 12.2, Plt Count 148 L, MPV 10.6, Immature Gran % (Auto) 0.700, Neut % (Auto) 85.2 H, Lymph % (Auto) 5.8 L, [place] % (Auto) 8.2, Eos % (Auto) 0.0, Baso % (Auto) 0.1, Absolute Neuts (auto) 12.3 H, Absolute Lymphs (auto) 0.84, Nucleated RBC % 0 11/05/21 05:08: Sodium 139, Potassium 4.5, Chloride 107, Carbon Dioxide 25.0, Anion Gap 7, BUN 38 H, Creatinine 1.26 H, Estim Creat Clear Calc 29.11, Est GFR (MDRD) Af Amer 53 L, Est GFR (MDRD) Non-Af 44 L, BUN/Creatinine Ratio 30.2 H, Glucose 178 H, Calcium 8.1 L Micro: Microbiology 11/03/21 18:40 Nasal Secretion SARS-CoV-2 Antigen (Rapid) - Final Radiography Diagnostic Testing: Radiology Impression Cervical Spine X-Ray 11/04/21 14:45 IMPRESSION: Documentation of anterior C3-4 anterior interbody fusion with a spacer in the C3-C4 intervertebral disc space. Electronically Signed: Reynaldo Gamble MD at 23:17 EDT , Physical Exam Narrative Dressing clean dry and intact. Incision well approximated. Drain pulled this morning without complication. Const alert, oriented x3 and no apparent distress General Appearance: cooperative and comfortable HEENT head/scalp atraumatic and hearing grossly normal bilaterally Eyes EOMs intact bilaterally and conjunctivae normal Neck full ROM General: normal visual inspection Chest inspection of chest normal Resp normal respiratory effort and normal air movement Resp Narrative: Patient speaks in a whisper. She states this is because of pain with talking Cardio regular rate and peripheral pulses 2+ throughout GI soft to palpation, non-tender and non-distended Back/Spine Cervical Spine: cervical ROM normal Thoracic Spine / Upper Back: normal to inspection Lumbar Spine / Lower Back: normal to inspection Extremity Extremity Narrative: Right upper extremity: Sensation and motor intact grossly without focal deficit. Strength 5- out of 5 in all muscle groups. Pulses and reflexes normal. Left upper extremity: Sensation and motor intact grossly. Patient does have generalized weakness of 4 out of 5 in all muscle groups compared to right upper extremity. Pulses and reflexes normal. Bilateral lower extremities: Sensation and motor intact grossly. 4 out of 5 strength in all muscle groups. Sustained clonus in the left ankle. No clonus in the right ankle. Upgoing Babinski in both feet. Pulses and reflexes normal and symmetric. Skin no rashes or lesions noted General Skin Exam: no breakdown Neuro oriented x3 and moves all extremities Motor Exam: muscle tone normal throughout Assessment & Plan Assessment/Plan (1) Cervical disc disorder: (2) Cervical spondylosis: (3) Cervical stenosis of spine: (4) Myelopathy: (5) Cervical spinal cord compression: PLAN: Continue pain control and mobilization as tolerated, up with assistance. Activity restrictions to include no repetitive bending, twisting, or lifting greater than 5 pounds, no pushing or pulling with the arms, no raising arms above the head. Drain pulled The patient does have some dysphagia and dysphonia. Treat with observation for now. Soft diet well dysphagia present. Okay to give IV steroids if okay with medicine. Okay to discharge from spine standpoint Follow-up with Dr. Freedman in 3 weeks, call for appointment
[2021-11-05] MEDS: Ipratropium/Albuterol Sulfate 3 ML AMPUL.NEB INHALATION ×3 (07:43→19:42)
[2021-11-05] MEDS: metFORMIN HCl 500 MG Tablet PO ×2 (08:30→16:43)
[2021-11-05] MEDS: Nystatin Powder 15gm Bottle 1 APPLIC TOPICAL ×2 (08:30→23:57)
[2021-11-05] MEDS: Famotidine 20 MG Tablet 40 MG PO (08:31)
[2021-11-05] MEDS: Cholecalciferol (VIT D3) 25 MCG TABLET (1,000 UNITS) PO (08:31)
[2021-11-05] MEDS: Lactated Ringers 1,000 ML 100 ML IV ×2 (08:36→17:43)
--- NOTE | 2021-11-05 09:14 | CASEMGMT ---
Social Work SW met with pt and introduced self and role of SW. SW spoke with pt regarding discharge plan. Pt confirms that she needed help with ADLs prior to surgery. SW discussed with pt concerns that analytical manager Toshia has about pt returning home immediately from hospital and will likely need SNF for rehab prior to return to home. Pt acknowledging this as true. SW reviewed list of SNF providers including quality and resource use data and consistent with the patient's preferred geographic region, medical needs and insurance network. Pt preferred provider is [facility]. SW did explain that insurance will cover stay at TCU for 20 days, if pt cannot return to [facility] after 20 days she will need to transfer to a free standing SNF to complete her therapy prior to her return to her home. Pt expresses understanding of this but continues to wish to go to TCU. Phone call to Serena in TCU and they are able to accept pt. Plan: TCU, when medically ready NISH Shannon
[2021-11-05 11:50] LABS: Bedside Glucose 170 mg/dL (74-106)
[2021-11-05 12:01] LABS: Bedside Glucose 119 mg/dL (74-106)
--- NOTE | 2021-11-05 14:47 | PN.HOSP_ITS ---
Subjective Subjective Patient alvaro nd examined. She is POD 1 and had C3-4 anterior cervical fusion. She complains of pain with swallowing. Drain was removed today. Review of systems otherwise negative. Objective Data Objective Data Vital Signs: Vital Signs Temp Pulse Resp BP Pulse Ox 98.1 F 83 18 102/54 L 92 11/05/21 08:30 11/05/21 13:02 11/05/21 13:02 11/05/21 08:30 11/05/21 09:15 Oxygen Flow Rate (L/min) 2 Oxygen Delivery Method Nasal Cannula Weight: 140 lb 6.951 oz Body Mass Index (BMI) 26.5 Intake & Output: Intake and Output for Last 24 Hours 11/03/21 11/04/21 11/05/21 23:59 23:59 23:59 Intake Total 1716.67 / 1716.67 1243.33 / 1243.33 Output Total 100 / 450 550 / 550 Balance 1616.67 / 1266.67 693.33 / 693.33 Lab / Micro Data Result Diagrams: 11/05/21 05:08 11/05/21 05:08 Labs: Laboratory Results - last 24 hr 11/04/21 17:21: POC Glucose 166 H 11/04/21 22:57: POC Glucose 209 H 11/05/21 03:00: POC Glucose 189 H 11/05/21 05:08: WBC 14.4 H, RBC 3.40 L, Hgb 11.0 L, Hct 32.9 L, MCV 96.8, MCH 32.4 H, MCHC 33.4 D, RDW Std Deviation 42.8, RDW Coeff of Marcel 12.2, Plt Count 148 L, MPV 10.6, Immature Gran % (Auto) 0.700, Neut % (Auto) 85.2 H, Lymph % (Auto) 5.8 L, [place] % (Auto) 8.2, Eos % (Auto) 0.0, Baso % (Auto) 0.1, Absolute Neuts (auto) 12.3 H, Absolute Lymphs (auto) 0.84, Nucleated RBC % 0 11/05/21 05:08: Sodium 139, Potassium 4.5, Chloride 107, Carbon Dioxide 25.0, Anion Gap 7, BUN 38 H, Creatinine 1.26 H, Estim Creat Clear Calc 29.11, Est GFR (MDRD) Af Amer 53 L, Est GFR (MDRD) Non-Af 44 L, BUN/Creatinine Ratio 30.2 H, Glucose 178 H, Calcium 8.1 L 11/05/21 06:26: POC Glucose 170 H 11/05/21 11:46: POC Glucose 119 H Micro: Microbiology 11/03/21 18:40 Nasal Secretion SARS-CoV-2 Antigen (Rapid) - Final Radiography Diagnostic Testing: Radiology Impression Cervical Spine X-Ray 11/04/21 14:45 IMPRESSION: Documentation of anterior C3-4 anterior interbody fusion with a spacer in the C3-C4 intervertebral disc space. Electronically Signed: Reynaldo Gamble MD at 23:17 EDT , Physical Exam Const alert, oriented x3, no apparent distress and average body habitus General Appearance: cooperative, well kempt and well developed Orientation / Consciousness: awake, oriented to person, oriented to place and oriented to time Exam Limitations: no limitations HEENT normocephalic, head/scalp atraumatic and moist oral mucous membranes; Negative for hearing grossly normal bilaterally Head and Scalp: normocephalic Eyes PERRL, EOMs intact bilaterally and conjunctivae normal Neck nuchal rigidity and thyroid normal Neck Narrative: intact dressing over surgical site on anterior neck General: trachea midline Resp normal respiratory effort, no retractions, no use of accessory muscles and clear to auscultation bilaterally Auscultation: Negative for rales, rhonchi or wheezes Cardio regular rate, regular rhythm, S1 normal heart sound, S2 normal heart sound, no murmurs, no rub and no gallops GI normal to inspection, nondistended, normoactive bowel sounds, soft to palpation, non-tender and non-distended Extremity normal to inspection, full ROM and no clubbing, cyanosis or edema Peripheral Pulses: Yes pulses 2+ throughout Skin no rashes or lesions noted General Skin Exam: no breakdown Neuro oriented x3, CN's II-XII intact bilaterally, moves all extremities and no sensory deficits noted Sensorium / Orientation: awake and alert Speech: speech normal Psych affect normal Psych Narrative: Patient has signs of mild cognitive impairment Assessment & Plan Assessment/Plan (1) Cervical spinal cord compression: PLAN: #Cervical cord compression * imaging showed left ventral cord compression at C3-C4 disc space level secondary to extruded disc fragment * s/p C3-4 anterior cervical fusion and insertion of intervertebral mechanical device and anterior plate fixation. * PT/OT on board * spine surgery on board * on tylenol, morphine and oxycodone prn for pain. * fall precautions * * #Type 2 diabetes mellitus * on ISS. Accuchecks ACHS * metformin on hold. * #Hypertension: on valsartan/HCTZ. #Asthma: not in exacerbation. On breathing treatment with bronchodilators #Hyperlipidemia: on statin #CKD stage III: Cr is 1.26. Stable #MRDD: stable. Lives in a detention DVT prophylaxis: SCDs Disposition; for DC to TCU tomorrow if she remains medically stable Charges/Coding Visit Charges Inpatient E&M: 49233 Subs Hosp L2
[2021-11-05 17:15] LABS: Bedside Glucose 136 mg/dL (74-106)
[2021-11-05] MEDS: Atorvastatin Calcium 40 MG Tablet PO (23:57)
[2021-11-05] MEDS: Citalopram 10 MG Tablet PO (23:57)
[2021-11-05] MEDS: hydroCHLOROthiazide 12.5mg 12.5 MG PO (23:58)
[2021-11-05] MEDS: Losartan Potassium 100 MG Tablet PO (23:58)
[2021-11-06] MEDS: Acetaminophen 325 MG Tablet 650 MG PO (00:11)
[2021-11-06] MEDS: Gabapentin 100 MG Capsule PO ×2 (00:11→06:51)
[2021-11-06 00:15] LABS: Bedside Glucose 108 mg/dL (74-106)
[2021-11-06 03:50] VITALS: O2SAT 87
[2021-11-06 03:51] VITALS: BP 137/50; PULSE 99; RESP 18; TEMP 36.8; O2SAT 97
[2021-11-06] MEDS: Lactated Ringers 1,000 ML 100 ML IV (03:51)
[2021-11-06 07:15] LABS: Bedside Glucose 103 mg/dL (74-106)
[2021-11-06 07:24] VITALS: PULSE 93; RESP 19
[2021-11-06] MEDS: Ipratropium/Albuterol Sulfate 3 ML AMPUL.NEB INHALATION (07:32)
[2021-11-06 07:35] LABS: Absolute Lymphocyte Count 1.78 X10^3/uL (0.83-4.51); Absolute Neutrophil Count 5.6 X10^3/uL (2.0-7.7); Basophil# 0.01 X10^3/uL; Basophil% 0.1 % (0-1); Eosinophil# 0.19 X10^3/uL; Eosinophils% 2.2 % (0-5); Hematocrit 31.4 % (37-47); Hemoglobin 10.2 g/dL (12.0-15.0); Lymphocyte # 1.78 X10^3/ul (0.83-4.51); Mean Corp Hgb Conc 32.5 g/dL (32-36); Mean Corpuscular Hgb 32.1 pg (27.0-32.0); Mean Corpuscular Volume 98.7 fL (81-99); Mean Platelet Vol. 10.4 fl (6.2-12.0); Monocyte# 0.89 X10^3/uL; Monocyte% 10.5 % (0-10); NRBC Flagged by Analyzer 0 % (0-5); Neutrophil # 5.55 X10^3/uL (2.7-7.7); Neutrophil % 65.5 % (47-70); Platelet Count 129 K/mm3 (150-450); RBC Distribution Width CV 12.5 % (11.6-14.6); RBC Distribution Width SD 45.6 fl (35.1-43.9); Red Blood Count 3.18 M/mm3 (4.2-5.4); White Blood Count 8.5 K/mm3 (4.4-11.0)
[2021-11-06 08:01] LABS: Anion Gap 6 (5-15); BUN 28 mg/dL (7-18); BUN/Creat Ratio 26.9 RATIO (10-20); Calcium,Total 8.3 mg/dL (8.5-10.1); Chloride 108 mmol/L (98-107); Creatinine, Serum 1.04 mg/dL (0.55-1.02); EST Glomerular Filtration Rate 55 mL/min (>60); Est Glom Filt Rate - Afr Amer 66 mL/min (>60); Estimated Creatinine Clearance 35.27 ml/min; Glucose 101 mg/dL (74-106); Sodium Level 139 mmol/L (136-145)
[2021-11-06 08:24] VITALS: O2SAT 95
[2021-11-06 08:40] VITALS: BP 107/49; PULSE 91; RESP 16; TEMP 36.7; O2SAT 96
[2021-11-06] MEDS: metFORMIN HCl 500 MG Tablet PO (08:41)
[2021-11-06] MEDS: Famotidine 20 MG Tablet 40 MG PO (08:42)
[2021-11-06] MEDS: Nystatin Powder 15gm Bottle 1 APPLIC TOPICAL (08:42)
[2021-11-06] MEDS: Cholecalciferol (VIT D3) 25 MCG TABLET (1,000 UNITS) PO (08:42)
--- NOTE | 2021-11-06 11:31 | DS.PCM_ITS ---
Providers Date of Admission: 11/03/21 Primary Care Physician: Dr. Mook Merlos MD Consultations 11/03/21 21:56 Consult: Orthopedics Routine Consulting Provider: Roland Freedman Reason for Consult: C-3C-4 DISC RUPTURE EMERGENT Consult: No MD Notified: Yes Date Notified: 11/03/21 Time Notified: 20:14 Method of Notification: Verbal Reason For Visit: C3-C4 DISC RUPTURE WITH LEFT VENTRAL SPINAL CORD Diagnosis Discharge Diagnosis (1) Cervical spinal cord compression: Status: Acute Code(s): G95.20 - Unspecified cord compression Medications at Discharge Home Medications atorvastatin 40 mg PO QHS 07/28/21 citalopram 10 mg PO QHS 07/28/21 metformin 500 mg PO BID 07/28/21 famotidine 40 mg tablet 40 mg PO DAILY 10/05/21 gabapentin 100 mg capsule 100 mg PO TID 10/05/21 Bevespi Aerosphere 2 puff INHALATION BID 11/03/21 cholecalciferol (vitamin D3) [Vitamin D3] 25 mcg PO DAILY 11/03/21 valsartan-hydrochlorothiazide 1 tab PO QHS 11/03/21 tramadol 50 mg PO Q6H PRN PRN 3 Days #12 tab 11/06/21 Hospital Course Operations - (anterior C3-4 cervical fusion) Procedures None Summary of Care Provided Minutes Spent on Discharge: 45 Hospital Course: Patient is a 76-year-old female with a past medical history as outlined was admitted through the ED on 11/03/2021 from a [facility] with a complaint of left-sided weakness that been going on from April since the year before admission. She saw her neurologist on the day of admission who ordered an MRI and the MRI showed cervical disc rupture at C3-C4 with left spinal cord compression. She was admitted to be managed for left-sided weakness due to c ervical disc rupture and spine surgery was consulted. She had C3-C4 anterior cervical fusion and insertion of intervertebral mechanical device and anterior plate fixation. She tolerated the surgery well. Postop course was uncomplicated. She remained stable and was discharged to the transitional care unit on 11/06/2021. She is follow-up with her primary care doctor and follow-up with spine surgery on outpatient basis. Patient seen and examined prior to discharge. She had no active complaints and had an uneventful night. She felt well. Review of systems otherwise negative. Labs and vitals reviewed. Home medication reviewed and reconciled. Physical Exam Const alert, oriented x3, no apparent distress and average body habitus General Appearance: cooperative, comfortable, well kempt and well developed Orientation / Consciousness: awake, oriented to person, oriented to place and oriented to time Exam Limitations: no limitations HEENT normocephalic, head/scalp atraumatic and moist oral mucous membranes; Negative for hearing grossly normal bilaterally Eyes PERRL, EOMs intact bilaterally and conjunctivae normal Neck nuchal rigidity and thyroid normal Neck Narrative: intact dressing over surgical site on anterior neck General: trachea midline Resp normal respiratory effort, no retractions, no use of accessory muscles and clear to auscultation bilaterally Auscultation: Negative for rales, rhonchi or wheezes Cardio regular rate, regular rhythm, S1 normal heart sound, S2 normal heart sound, no murmurs, no rub and no gallops GI normal to inspection, nondistended, normoactive bowel sounds, soft to palpation, non-tender and non-distended Extremity normal to inspection, full ROM and no clubbing, cyanosis or edema Skin no rashes or lesions noted General Skin Exam: no breakdown Neuro oriented x3, CN's II-XII intact bilaterally, moves all extremities and no sensory deficits noted Neuro Narrative: power in LUE and LLE mildly reduced at 4/5, no tingling or numbness Sensorium / Orientation: awake and alert Speech: speech normal Psych affect normal Weight / BMI Weight Weight: 140 lb 6.951 oz Body Mass Index (BMI) 26.5 ABG / Lab / Microbiology Data Result Diagrams: 11/06/21 07:10 11/06/21 07:10 Laboratory: Laboratory Results - last 24 hr 11/05/21 06:26: POC Glucose 170 H 11/05/21 11:46: POC Glucose 119 H 11/05/21 16:44: POC Glucose 136 H 11/06/21 00:07: POC Glucose 108 H 11/06/21 06:54: POC Glucose 103 11/06/21 07:10: WBC 8.5, RBC 3.18 L, Hgb 10.2 L, Hct 31.4 L, MCV 98.7, MCH 32.1 H, MCHC 32.5, RDW Std Deviation 45.6 H, RDW Coeff of Marcel 12.5, Plt Count 129 L, MPV 10.4, Immature Gran % (Auto) 0.700, Neut % (Auto) 65.5, Lymph % (Auto) 21.0, Freestone % (Auto) 10.5 H, Eos % (Auto) 2.2, Baso % (Auto) 0.1, Absolute Neuts (auto) 5.6, Absolute Lymphs (auto) 1.78, Nucleated RBC % 0 11/06/21 07:10: Sodium 139, Potassium 4.0, Chloride 108 H, Carbon Dioxide 25.0, Anion Gap 6, BUN 28 H, Creatinine 1.04 H, Estim Creat Clear Calc 35.27, Est GFR (MDRD) Af Amer 66, Est GFR (MDRD) Non-Af 55 L, BUN/Creatinine Ratio 26.9 H, Glucose 101, Calcium 8.3 L Microbiology: Microbiology 11/03/21 18:40 Nasal Secretion SARS-CoV-2 Antigen (Rapid) - Final D/C Instructions Discharge Diet: Low fat / Low cholesterol Discharge Activity: Return to Normal Activity Weight Bearing Status: Weight bearing as tolerated Call your doctor if you observe: Fever of 101 or Higher, Shortness of breath, Dizziness, Swelling in the ankles, Chest pain, Increased palpitations (irregular heartbeat) and Uncontrolled pain Meaningful Use Info Meaningful Use Diagnoses (Choose all that apply): None applicable Discharge Plan Admission Admit Date/Time: 11/03/21 20:08 Primary Reason for Your Visit: cervical cord compression Attending Provider: Tahira Finch Primary Care Provider: Mook Merlos Chi Consulting Providers: Roland Freedman ; Juan Wang Instructions Additional Instructions / Restrictions: 1. During your procedure, you received sedation through your IV. Please follow these instructions for the next 24 hours: Do not drive a motor vehicle, do not drink any alcoholic beverages, and do not sign any legal documents or make personal or business decisions. A responsible adult should stay with you at least 6 hours after the procedure. 2. Keep your surgical site/incision clean and the dressing dry and intact. Change dressing daily with iodine to incision, gauze and tape. Sizerock dressing over incision to shower. You may use an ice pack at the surgical site to reduce any swelling or discomfort. 3. Monitor the incision site for any signs or symptoms of infection. Watch for redness, excessive swelling or drainage, or continued pain at the incision site after 3 days. Contact your physician immediately for a fever, chills or a temperature of 101.5? F or greater. 4. Take your medication exactly as prescribed by your physician. Do not attempt to wean yourself off any of your medications even though your pain is improving. This process needs to be carefully monitored by your doctor. Take any antibiotics prescribed exactly as directed and until they are gone. 5. Avoid stretching, bending, pulling, twisting or any sudden movements. Do not bend or twist at the waist. Do not raise your arms above your head. 6. No lifting greater than 5 pounds. 7. Do not operate a motor vehicle, equipment or a power tool while taking pain medication 8. Do not have any manipulation done by a chiropractor or any other physician without first consulting with the surgeon 9. Please contact our office if you are even scheduled for a CT scan or an MRI. 10. Please call us if you have any questions, problems or concerns. 11. Do not take any blood thinners, aspirin, or NSAIDs for 1 week after surgery. Then okay to resume those medications 12. Follow-up with Dr. Freedman in 3 weeks, call for appointment Discharge Orders/Prescriptions Prescriptions: New tramadol 50 mg Tablet 50 mg PO Q6H PRN PRN (Reason: Pain Score 4-5) 3 Days Qty: 12 RF: 0 Continued famotidine 40 mg tablet 40 mg PO DAILY RF: 0 gabapentin 100 mg capsule 100 mg PO TID RF: 0 atorvastatin 40 mg tablet 40 mg PO QHS RF: 0 metformin 500 mg tablet 500 mg PO BID RF: 0 citalopram 10 mg tablet 10 mg PO QHS RF: 0 valsartan-hydrochlorothiazide 320-12.5 mg tablet 1 tab PO QHS RF: 0 cholecalciferol (vitamin D3) [Vitamin D3] 25 mcg (1,000 unit) Tablet 25 mcg PO DAILY RF: 0 Bevespi Aerosphere 9-4.8 mcg HFA aerosol inhaler 2 puff INHALATION BID RF: 0 Discontinued aspirin [Adult Aspirin Regimen] 81 mg tablet,delayed release (DR/EC) 81 mg PO DAILY RF: 0 Referrals / Follow Up: Roland Freedman DO [STAFF PHYSICIAN] - Mook Merlos Chi, MD [Primary Care Provider] - Disposition Disposition (needs filled in before D/C Order can be placed): [facility] Charges/Coding Visit Charges Inpatient E&M: 92024 Disch Hosp
--- NOTE | 2021-11-06 11:40 | TREXTCAR_ITS ---
Diet 11/05/21 08:01 Diet: Regular - General Food consistency:: Soft & Bite Sized Is pt able to select menu?: Yes Routine Orders/Code Status Enema Type: Fleetz Enema Frequency: Daily PRN Suppository Type: Dulcolax 10mg Suppository Frequency: Daily PRN O2 Frequency: PRN Keep PO Greater than or Equal to (%): 90 Wound(s) ANT NECK: Wound Type: Surgical Incision Therapies Weight Bearing: Weight bearing as tolerated Physical Therapy: Eval and Treat Occupational Therapy: Eval and Treat Problem/Diagnosis (1) Cervical spinal cord compression: Status: Acute Allergies/Procedures Done in Hospital Allergies amitriptyline Allergy (Verified 11/03/21 17:43) Rash Penicillins Allergy (Verified 11/03/21 17:43) Hives codeine Adverse Reaction (Intermediate, Verified 11/03/21 17:43) Other sneezing Procedures: None Type of Care/Length of Stay Estimated LOS: Convalescent Care Less Than 30 days Type of Care Needed: Skilled Rehab Potential: Fair Prognosis: Fair Additional Orders/Day of Discharge Day of Discharge: 11/06/21 Dietary and Speech Recommendations Dietitian Recommendations/Changes: ADAT to 1800 Consistent carbohydrate diet Discharge Plan Admission Admit Date/Time: 11/03/21 20:08 Primary Reason for Your Visit: cervical cord compression Attending Provider: Tahira Finch Primary Care Provider: Mook Merlos Chi Consulting Providers: Roland Freedman ; Juan Wang Instructions Additional Instructions / Restrictions: 1. During your procedure, you received sedation through your IV. Please follow these instructions for the next 24 hours: Do not drive a motor vehicle, do not drink any alcoholic beverages, and do not sign any legal documents or make personal or business decisions. A responsible adult should stay with you at least 6 hours after the procedure. 2. Keep your surgical site/incision clean and the dressing dry and intact. Change dressing daily with iodine to incision, gauze and tape. Alviso dressing over incision to shower. You may use an ice pack at the surgical site to reduce any swelling or discomfort. 3. Monitor the incision site for any signs or symptoms of infection. Watch for redness, excessive swelling or drainage, or continued pain at the incision site after 3 days. Contact your physician immediately for a fever, chills or a temperature of 101.5? F or greater. 4. Take your medication exactly as prescribed by your physician. Do not attempt to wean yourself off any of your medications even though your pain is improving. This process needs to be carefully monitored by your doctor. Take any antibiotics prescribed exactly as directed and until they are gone. 5. Avoid stretching, bending, pulling, twisting or any sudden movements. Do not bend or twist at the waist. Do not raise your arms above your head. 6. No lifting greater than 5 pounds. 7. Do not operate a motor vehicle, equipment or a power tool while taking pain medication 8. Do not have any manipulation done by a chiropractor or any other physician without first consulting with the surgeon 9. Please contact our office if you are even scheduled for a CT scan or an MRI. 10. Please call us if you have any questions, problems or concerns. 11. Do not take any blood thinners, aspirin, or NSAIDs for 1 week after surgery. Then okay to resume those medications 12. Follow-up with Dr. Freedman in 3 weeks, call for appointment Discharge Orders/Prescriptions Prescriptions: New tramadol 50 mg Tablet 50 mg PO Q6H PRN PRN (Reason: Pain Score 4-5) 3 Days Qty: 12 RF: 0 Continued famotidine 40 mg tablet 40 mg PO DAILY RF: 0 gabapentin 100 mg capsule 100 mg PO TID RF: 0 atorvastatin 40 mg tablet 40 mg PO QHS RF: 0 metformin 500 mg tablet 500 mg PO BID RF: 0 citalopram 10 mg tablet 10 mg PO QHS RF: 0 valsartan-hydrochlorothiazide 320-12.5 mg tablet 1 tab PO QHS RF: 0 cholecalciferol (vitamin D3) [Vitamin D3] 25 mcg (1,000 unit) Tablet 25 mcg PO DAILY RF: 0 Bevespi Aerosphere 9-4.8 mcg HFA aerosol inhaler 2 puff INHALATION BID RF: 0 Discontinued aspirin [Adult Aspirin Regimen] 81 mg tablet,delayed release (DR/EC) 81 mg PO DAILY RF: 0 Referrals / Follow Up: Roland Freedman DO [STAFF PHYSICIAN] - Mook Merlos Chi, MD [Primary Care Provider] - Disposition Disposition (needs filled in before D/C Order can be placed): Group Home Facility
[2021-11-06 11:46] LABS: Bedside Glucose 104 mg/dL (74-106)
[2021-11-06 13:20] VITALS: BP 107/59; PULSE 81; RESP 16; TEMP 36.5; O2SAT 96
== END 2021-11-06 14:30 | DRG 472 ==
LOC: ED 19:36 → MS3 20:20
PROVIDERS: Orthopaedic Surgery; Admitting Provider Internal Medicine; Emergency Provider Emergency Medicine; PCP Family Medicine Geriatric Medicine; Visit Provider Student in an Organized Health Care Education/Training Program
PROC: 0SG00AJ Fusion of Lumbar Vertebral Joint with Interbody Fusion Device, Posterior Approach, Anterior Column, Open Approach (ICD-10-PCS; CPT 22630; principal; 2021-11-04 12:00)
DX: M50.01 Cervical disc disorder with myelopathy, high cervical region (principal); M47.12 Other spondylosis with myelopathy, cervical region; M48.02 Spinal stenosis, cervical region; G95.9 Disease of spinal cord, unspecified; L89.159 Pressure ulcer of sacral region, unspecified stage; L89.309 Pressure ulcer of unspecified buttock, unspecified stage; J42 Unspecified chronic bronchitis; E11.22 Type 2 diabetes mellitus with diabetic chronic kidney disease; N18.32 Chronic kidney disease, stage 3b; I12.9 Hypertensive chronic kidney disease with stage 1 through stage 4 chronic kidney disease, or unspecified chronic kidney disease; G31.84 Mild cognitive impairment of uncertain or unknown etiology; E78.2 Mixed hyperlipidemia; J45.909 Unspecified asthma, uncomplicated; R62.50 Unspecified lack of expected normal physiological development in childhood; R13.10 Dysphagia, unspecified; R49.0 Dysphonia; Z20.822 Contact with and (suspected) exposure to COVID-19; Z79.82 Long term (current) use of aspirin; Z79.84 Long term (current) use of oral hypoglycemic drugs; Z79.899 Other long term (current) drug therapy; Z86.73 Personal history of transient ischemic attack (TIA), and cerebral infarction without residual deficits; Z87.891 Personal history of nicotine dependence
CPT/HCPCS: 36415; 71045; 72040; 72141; 76000; 80048; 80053; 82085; 82175; 82550; 82607; 82746; 82962; 83655; 83735; 83825; 83874; 83970; 84425; 84443; 85025; 85610; 85652; 85730; 86038; 86140; 86225; 86235; 87426; 92610; 93005; 94640; 97162; 97166; 97530; 97802; 99284; C1713; J7030; J7120; A4216; J2405

== ENCOUNTER → 2021-11-03 | Outpatient (CLI) | payer MEDICARE, MEDICAID, SELFPAY ==
--- NOTE | 2021-11-03 10:49 | MRI_ITS ---
We are attempting to reach an attending provider to discuss findings. An addendum with communication details will be sent when the communication is complete. STUDY: MRI CERVICAL SPINE WITHOUT CONTRAST REASON FOR EXAM: Female, 76 years old. Myelopathy, Weakness LEFT SIDE TECHNIQUE: Standardized fat and water weighted pulse sequences were obtained in the sagittal and axial planes. COMPARISON: CTA neck 11/28/2013. FINDINGS: Normal foramen magnum and brainstem-cervical cord junction. Normal craniovertebral junction. Normal anterior atlantoaxial articulation. Normal odontoid process. Normal cervical lordosis. Normal vertebral bodies and posterior osseous elements. C2-3: Normal endplates. Normal disc height, signal and morphology. Normal central canal and intervertebral neural foramina. C3-4: Normal endplates. Prominent ventral extradural defect is suspiciously due to posterior and slightly cephalad disc extrusion, slightly eccentric to the left. This is causing left-sided spinal cord compression. Severe central canal stenosis. Moderate stenosis of the intervertebral neural foramina due to moderately pronounced bilateral degenerative facet hypertrophy with osteophytic encroachment. C4-5: Pronounced disc space height narrowing with partial posterior ankylosis. Normal central canal and intervertebral neural foramina. C5-6: Pronounced disc space height narrowing with partial ankylosis. Mild anterolisthesis of C5 on C6. Normal central canal. Moderate stenosis of the right intervertebral neural foramen. Mild stenosis of the left intervertebral neural foramen. C6-7: Anterior posterior marginal spurs. Pronounced disc space height narrowing. Normal central canal. Moderately pronounced stenosis of the left intervertebral neural foramen. Mild stenosis of the right intervertebral neural foramen. C7-T1: Normal endplates. Normal disc height, signal and morphology. Normal central canal and intervertebral neural foramina. T1-T2: Normal endplates. Mild disc space height narrowing. Prominent ventral SOB defect due to posterior bulging annulus. Normal central canal. Mild stenosis of the intervertebral neural foramina. T2-T3, T3-T4 and T4-T5: (Sagittal only). Normal endplates. Normal disc height and morphology. Normal central canal and intervertebral neural foramina. Abnormal cervical spinal cord due to left ventral spinal cord compression by C3-C4 disc extrusion, slightly eccentric to the left. Suspicious intramedullary high signal intensity of the cervical spinal cord at the upper C6 vertebral body level. No abnormal expansion of the spinal cord. Normal visualized soft tissue structures. MRI/Spine Cervical (Routine) IMPRESSION: 1. Left ventral spinal cord compression at the C3-C4 disc space level secondary to left posterior paramedian and cephalad extruded disc fragment. Additionally, moderate stenosis of the intervertebral neural foramina due to osteophytes arising from moderately pronounced degenerative facet hypertrophy. 2. Capacious intramedullary high signal intensity without cord expansion at the upper C6 vertebral body level. This may be due to myelomalacia possibly from remote injury. Electronically Signed: Tanner Tierney MD at 12:59 EDT ,
[2021-11-03 12:30] LABS: Erythrocyte Sedimentation Rate 9 mm/hr (0-30)
[2021-11-03 12:33] LABS: Absolute Lymphocyte Count 1.85 X10^3/uL (0.83-4.51); Absolute Neutrophil Count 4.4 X10^3/uL (2.0-7.7); Basophil# 0.01 X10^3/uL; Basophil% 0.1 % (0-1); Eosinophils% 5.3 % (0-5); Hematocrit 40.6 % (37-47); Hemoglobin 13.8 g/dL (12.0-15.0); Lymphocyte # 1.85 X10^3/ul (0.83-4.51); Lymphocyte % 24.4 % (19-41); Mean Corpuscular Volume 94.2 fL (81-99); Mean Platelet Vol. 11.1 fl (6.2-12.0); Monocyte# 0.87 X10^3/uL; Monocyte% 11.5 % (0-10); NRBC Flagged by Analyzer 0 % (0-5); Neutrophil # 4.42 X10^3/uL (2.7-7.7); Neutrophil % 58.3 % (47-70); Platelet Count 170 K/mm3 (150-450); RBC Distribution Width CV 11.8 % (11.6-14.6); Red Blood Count 4.31 M/mm3 (4.2-5.4); White Blood Count 7.6 K/mm3 (4.4-11.0)
[2021-11-03 13:04] LABS: PTHIN 51.4 pg/mL (18.4-80.1)
[2021-11-03 13:08] LABS: Vitamin B12 533 pg/mL (211-911)
[2021-11-03 13:20] LABS: ALB/GLOB Ratio 1.1 RATIO (0.9-2.4); AST(SGOT) 31 U/L (15-37); Alanine Aminotransfer ALT/SGPT 41 U/L (13-56); Albumin, Serum 3.9 g/dL (3.2-5.0); Alkaline Phosphatase 73 U/L (45-117); Anion Gap 10 (5-15); BUN 45 mg/dL (7-18); BUN/Creat Ratio 35.2 RATIO (10-20); CPK Total, Creatine Kinase 63 U/L (26-192); CRP < 2.90 mg/L (0.0-3.0); Calcium,Total 9.9 mg/dL (8.5-10.1); Chloride 99 mmol/L (98-107); Creatinine, Serum 1.28 mg/dL (0.55-1.02); EST Glomerular Filtration Rate 43 mL/min (>60); Est Glom Filt Rate - Afr Amer 52 mL/min (>60); Globulin 3.7 g/dL (2.2-4.2); Glucose 113 mg/dL (74-106); Magnesium 1.7 mg/dL (1.6-2.6); Protein, Total 7.6 g/dL (6.4-8.2); Sodium Level 136 mmol/L (136-145); Thyroid Stim Hormone (TSH) 0.99 uIU/mL (0.358-3.74)
[2021-11-04 17:33] LABS: ANTINUCLEAR ANTIBODIES DIRECT Negative (Negative)
[2021-11-05 11:13] LABS: Lead, Blood Adult 16+yrs < 1 ug/dL (0-4)
[2021-11-09 15:08] LABS: Aldolase 3.3 U/L (3.3-10.3)
[2021-11-11 08:18] LABS: Arsenic 7245 1 ug/L (0-9); Lead, Blood < 1 ug/dL (0-4); Mercury, Blood 85324 < 1.0 ug/L (0.0-14.9); Myoglobin, Serum 48 ng/mL (25-58)
== END | disposition home or self-care (01) ==
PROVIDERS: PCP Family Medicine Geriatric Medicine; Visit Provider Psychiatry & Neurology Neurology
DX: G95.9 Disease of spinal cord, unspecified (principal); E11.9 Type 2 diabetes mellitus without complications; R53.1 Weakness
CPT/HCPCS: 72141; 80053; 82085; 82175; 82550; 82607; 82746; 83655; 83735; 83825; 83874; 83970; 84425; 84443; 85025; 85652; 86038; 86140; 86225; 86235

== ENCOUNTER 2021-11-06 14:35 | Inpatient (IN) | payer MEDICARE, MEDICAID, SELFPAY ==
[2021-11-06 14:42] VITALS: BP 132/64; PULSE 87; RESP 18; TEMP 36.2; O2SAT 95; BMI 29.3
--- NOTE | 2021-11-06 17:01 | HP.PCM_ITS ---
HPI - General General Date of Admission: 11/06/21 HPI Narrative 11/03/2021 NAHUN CHAPMAN, is a 76 Female who presents to [facility] Emergency Department. 11/03/2021 EKG normal sinus rhythm, septal infarct, age undetermined. 11/03/2021 MRI cervical spine showed left ventral spinal cord compression at C3- C4 disc space level secondary to left posterior paramedian and cephalad extruded disc fragment, moderate stenosis at the intervertebral neural foramina due to osteophytes arising from moderately pronounced degenerative facet hypertrophy. No rectal tone on exam, Decadron IV push, Dr. Freedman consulted. 11/03/2021 Admit to Hospital. 11/04/2021 Dr. Freedman performed the followin. C3-4 anterior cervical discectomy, osteophytectomy, decompression of the spinal cord. 2. C3-4 anterior cervical fusion. 3. Insertion of intervertebral biomechanical device x 1. 4. Structural allograft for cervical fusion. 5. Anterior plate fixation. 6. Neuro monitoring bilateral upper, bilateral lower extremities. 11/04/2021 Pain controlled, left upper extremity numbness. Sliding scale insulin for diabetes mellitus. 11/05/2021 Mild dysphagia, dysphonia. Left upper extremity, bilateral lower extremity sensation improved. Drain pulled. 11/06/2021 Admit to TCU with debility, here for rehabilitation, strengthening, prior to discharge home to [facility]. [facility], [facility] Medical History (Updated 11/06/21 @ 17:[address] Mook Merlos MD) Acute cystitis Arthritis ASD (atrial septal defect) Atherosclerosis Atrophic vaginitis Back problem Chronic bronchitis Dermatophytosis Diabetes Disorder of bone and cartilage Dysuria History of high blood pressure Hypertension Macular degeneration Mixed hyperlipidemia Onychomycosis Pseudophakia Stress incontinence Stroke TIA (transient ischemic attack) Tobacco use disorder Urethrocele Home Medications atorvastatin 40 mg PO QHS 07/28/21 [History Last Taken 11/02/21] citalopram 10 mg PO QHS 07/28/21 [History Last Taken 11/02/21] metformin 500 mg PO BID 07/28/21 [History Last Taken 11/03/21] famotidine 40 mg tablet 40 mg PO DAILY 10/05/21 [History Last Taken 11/03/21] gabapentin 100 mg capsule 100 mg PO TID 10/05/21 [History Last Taken 11/03/21] Bevespi Aerosphere 2 puff INHALATION BID 11/03/21 [History Last Taken 11/03/21] cholecalciferol (vitamin D3) [Vitamin D3] 25 mcg PO DAILY 11/03/21 [History Last Taken 11/03/21] valsartan-hydrochlorothiazide 1 tab PO QHS 11/03/21 [History Last Taken 11/02/21] tramadol 50 mg PO Q6H PRN PRN 3 Days #12 tab 11/06/21 [Rx Last Taken Unknown] Allergy/AdvReac Type Severity Reaction Status Date / Time amitriptyline Allergy Rash Verified 11/03/21 17:43 Penicillins Allergy Hives Verified 11/03/21 17:43 codeine AdvReac Intermediate Other Verified 11/03/21 17:43 Surgical History (Updated 11/06/21 @ 17:[address] Mook Merlos MD) History of cervical spinal surgery No history of previous surgery Social History housing: other details: RESIDENTIAL Smoking Status: Former smoker alcohol intake: never substance use type: does not use what type of physical activity do you participate in: none ROS Constitutional Constitutional: Denies chills, fever(s) or weight gain ENT HEENT: Denies headache(s), nasal congestion or nasal discharge Cardiovascular Cardiovascular: Denies chest pain or palpitations Respiratory/Chest Respiratory/Chest: Denies cough, excessive phlegm production or shortness of breath with exertion Gastrointestinal Gastrointestinal: Denies abdominal pain, nausea or vomiting Genitourinary Genitourinary: Denies dysuria Musculoskeletal Musculoskeletal: Denies joint pain or joint swelling Integumentary Integumentary: Denies rash or wounds Neurologic Neurologic: Denies focal weakness, numbness or tingling Psychiatric Psychiatric: Denies anxiety, auditory hallucinations, depression, homicidal ideation or suicidal ideation Vital Signs Vital Signs Vital Signs: 11/06/21 14:42 Temperature 97.2 F L Temperature Source Temporal Pulse Rate 87 Respiratory Rate 18 Blood Pressure 132/64 H Blood Pressure Mean 86 Blood Pressure Source Monitor Blood Pressure Position Sitting Blood Pressure Location Left Arm Pulse Ox 95 Oxygen Delivery Method Room Air Weight Weight: 68.096 kg Body Mass Index (BMI) 29.3 Physical Exam Const alert General Appearance: cooperative HEENT normocephalic Eyes PERRL and EOMs intact bilaterally Neck supple, no JVD and no carotid bruits Neck Narrative: Left neck incision clean, dry, intact. Resp normal respiratory effort, normal air movement and clear to auscultation bilater ally Cardio regular rate and regular rhythm GI normal to inspection, nondistended, normoactive bowel sounds, non-tender and non-distended Extremity normal capillary refill General Extremity: Negative for edema Skin no rashes or lesions noted General Skin Exam: no breakdown Psych affect normal Appearance: appropriate Results Lab / Micro Data Result Diagrams: 11/07/21 06:59 11/07/21 06:59 Assessment & Plan Assessment/Plan (1) Debility: (2) Cervical spinal cord compression: (3) Hyperlipidemia: (4) Depression: (5) Diabetes mellitus: (6) Gastroesophageal reflux disease: (7) Diabetic polyneuropathy: (8) Chronic obstructive pulmonary disease: (9) Hypertension: PLAN: 76 year old female with below past medical history hospitalized for cervical spinal cord compression, underwent cervical spine decompression, fusion 11/04/[address] Freedman, admitted to TCU with debility, here for rehabilitation, strengthening, prior to discharge home to [facility] [facility]. * Debility - PT/OT. * Pain - Tylenol 1000mg q6h prn pain (1-3), Tramadol 50mg q6h prn pain (4-10). * Bowel - Senna/colace 1 tablet bid, Dulcolax 10mg pr daily prn. * Adult immunization - Administer pneumonia vaccine, covid19 vaccine, flu vaccine as appropriate. * DVT prophylaxis - HAS-BLED score 1 intermediate risk of bleeding, Tha score score 6 high risk of blood clots, overall risk moderate, Rx Xarelto 10mg daily x 14 days. * Hyperlipidemia - Atorvastatin 40mg qhs. * Depression - Citalopram 10mg qhs, stable chronic care home use, GDR not recommended. * GERD - Famotidine 40mg daily. * Diabetic polyneuropathy - Gabapentin 100mg po tid. * Hypertension - Losartan 100mg qhs, HCTZ 12.5mg qhs. * Skin irritation - Calmoseptine topical bid. * Diabetes mellitus II - Metformin 500mg bidcm. * Tinea corporis - Nystatin powder topical bid. * COPD - Anoro 1 puff daily. * Vitamin D deficiency - D3 25mcg daily.
[2021-11-06] MEDS: metFORMIN HCl 500 MG Tablet PO (18:20)
[2021-11-06] MEDS: Senna/Docusate Sodium 1 Tablet PO (18:20)
[2021-11-06] MEDS: Nystatin Powder 15gm Bottle 1 APPLIC TOPICAL (21:54)
[2021-11-06] MEDS: Menthol/Lanolin/Calamine/Znox 113 GM Tube 1 APPLIC TOPICAL (21:54)
[2021-11-06] MEDS: Citalopram 10 MG Tablet PO (21:55)
[2021-11-06] MEDS: hydroCHLOROthiazide 12.5mg 12.5 MG PO (21:55)
[2021-11-06] MEDS: Atorvastatin Calcium 40 MG Tablet PO (21:55)
[2021-11-06] MEDS: Losartan Potassium 100 MG Tablet PO (21:55)
[2021-11-06] MEDS: Gabapentin 100 MG Capsule PO (22:04)
[2021-11-07] MEDS: Umeclidinium Brm/Vilanterol 62.5-25 mcg Inh 1 PUFF INHALATION (05:57)
[2021-11-07] MEDS: Menthol/Lanolin/Calamine/Znox 113 GM Tube 1 APPLIC TOPICAL ×2 (05:57→17:45)
[2021-11-07] MEDS: Senna/Docusate Sodium 1 Tablet PO ×2 (05:58→17:48)
[2021-11-07] MEDS: Famotidine 20 MG Tablet 40 MG PO (05:58)
[2021-11-07] MEDS: Gabapentin 100 MG Capsule PO ×3 (05:58→20:57)
[2021-11-07] MEDS: Nystatin Powder 15gm Bottle 1 APPLIC TOPICAL ×2 (05:58→20:50)
[2021-11-07 06:41] LABS: Bedside Glucose 109 mg/dL (74-106)
[2021-11-07 07:22] LABS: Absolute Lymphocyte Count 1.83 X10^3/uL (0.83-4.51); Absolute Neutrophil Count 4.1 X10^3/uL (2.0-7.7); Basophil# 0.01 X10^3/uL; Basophil% 0.1 % (0-1); Eosinophil# 0.51 X10^3/uL; Eosinophils% 7.2 % (0-5); Hematocrit 30.7 % (37-47); Hemoglobin 10.5 g/dL (12.0-15.0); Lymphocyte # 1.83 X10^3/ul (0.83-4.51); Lymphocyte % 25.7 % (19-41); Mean Corp Hgb Conc 34.2 g/dL (32-36); Mean Corpuscular Hgb 32.5 pg (27.0-32.0); Mean Platelet Vol. 10.4 fl (6.2-12.0); Monocyte# 0.68 X10^3/uL; Monocyte% 9.6 % (0-10); NRBC Flagged by Analyzer 0 % (0-5); Neutrophil # 4.06 X10^3/uL (2.7-7.7); Platelet Count 143 K/mm3 (150-450); RBC Distribution Width CV 12.1 % (11.6-14.6); RBC Distribution Width SD 42.2 fl (35.1-43.9); Red Blood Count 3.23 M/mm3 (4.2-5.4); White Blood Count 7.1 K/mm3 (4.4-11.0)
[2021-11-07] MEDS: Cholecalciferol (VIT D3) 25 MCG TABLET (1,000 UNITS) PO (07:45)
[2021-11-07] MEDS: metFORMIN HCl 500 MG Tablet PO ×2 (07:46→17:47)
[2021-11-07 07:48] LABS: Anion Gap 6 (5-15); BUN 22 mg/dL (7-18); BUN/Creat Ratio 21.4 RATIO (10-20); Calcium,Total 8.8 mg/dL (8.5-10.1); Chloride 106 mmol/L (98-107); Creatinine, Serum 1.03 mg/dL (0.55-1.02); EST Glomerular Filtration Rate 56 mL/min (>60); Est Glom Filt Rate - Afr Amer 67 mL/min (>60); Glucose 101 mg/dL (74-106); Potassium 3.5 mmol/L (3.5-5.1); Sodium Level 139 mmol/L (136-145)
[2021-11-07] MEDS: Tuberculin,Purif.prot.deriv. 50 TU/ML Vial 0.1 ML ID (08:49)
[2021-11-07 09:15] VITALS: PULSE 85; RESP 18; O2SAT 94
[2021-11-07] MEDS: Iron Polysaccharide Complex 150 MG CAPSULE PO (14:11)
[2021-11-07] MEDS: Acetaminophen 500 MG Tablet 1000 MG PO ×2 (14:11→20:56)
[2021-11-07 15:12] VITALS: BP 133/64; PULSE 76; RESP 16; TEMP 35.7; O2SAT 95
[2021-11-07] MEDS: traMADol 50 MG Tablet PO (17:44)
[2021-11-07] MEDS: Rivaroxaban 10 MG Tablet PO (17:47)
[2021-11-07] MEDS: Atorvastatin Calcium 40 MG Tablet PO (20:50)
[2021-11-07] MEDS: Losartan Potassium 100 MG Tablet PO (20:51)
[2021-11-07] MEDS: Citalopram 10 MG Tablet PO (20:51)
[2021-11-07] MEDS: hydroCHLOROthiazide 12.5mg 12.5 MG PO (20:51)
[2021-11-08 05:00] VITALS: BP 130/73; PULSE 81; TEMP 36.4; O2SAT 84
[2021-11-08] MEDS: Umeclidinium Brm/Vilanterol 62.5-25 mcg Inh 1 PUFF INHALATION (05:41)
[2021-11-08] MEDS: Famotidine 20 MG Tablet 40 MG PO (05:42)
[2021-11-08] MEDS: Iron Polysaccharide Complex 150 MG CAPSULE PO (05:42)
[2021-11-08] MEDS: Senna/Docusate Sodium 1 Tablet PO (05:42)
[2021-11-08] MEDS: traMADol 50 MG Tablet PO (05:43)
[2021-11-08] MEDS: Menthol/Lanolin/Calamine/Znox 113 GM Tube 1 APPLIC TOPICAL ×2 (05:43→18:06)
[2021-11-08] MEDS: Nystatin Powder 15gm Bottle 1 APPLIC TOPICAL ×2 (05:44→18:07)
[2021-11-08] MEDS: Gabapentin 100 MG Capsule PO ×3 (05:45→20:59)
[2021-11-08 06:35] LABS: Bedside Glucose 111 mg/dL (74-106)
[2021-11-08 07:05] VITALS: O2SAT 90
[2021-11-08] MEDS: Cholecalciferol (VIT D3) 25 MCG TABLET (1,000 UNITS) PO (07:54)
[2021-11-08] MEDS: metFORMIN HCl 500 MG Tablet PO ×2 (07:54→18:07)
--- NOTE | 2021-11-08 09:35 | CASEMGMT ---
Social Work Met with patient to complete initial assessment. Introduced self and role. Discussed code status and MOLST form. Pt confirms full code. MOLST communicated to , placed on chart. Explained Medicare benefit with Medicaid as secondary, thus goal is for DC day 21 on 11/26. Pt will return to Care Home. SW to continue to follow. Maritza Galvez ,MUSICAL THERAPIST ROLLER
--- NOTE | 2021-11-08 09:41 | PHA.CONS1_ITS ---
Progress Note - Pharmacy Subjective: TCU Admission Objective: Allergies amitriptyline Allergy (Verified 11/03/21 17:43) Rash Penicillins Allergy (Verified 11/03/21 17:43) Hives codeine Adverse Reaction (Intermediate, Verified 11/03/21 17:43) Other sneezing Current Medications Generic Name Dose Route Start Last Admin Trade Name Freq PRN Reason Stop Dose Admin Acetaminophen 1,000 mg 11/06/21 17:17 11/07/21 20:56 Acetaminophen 500 Mg Tablet PO 1,000 mg Q6H PRN PRN Administration Pain Score 1-3 Atorvastatin Calcium 40 mg 11/06/21 22:00 11/07/21 20:50 Atorvastatin Calcium 40 Mg Tablet PO 40 mg QHS JASWANT Administration Bisacodyl 10 mg 11/06/21 15:11 Bisacodyl 10 Mg Suppository RC DAILY PRN Constipation Calamine/Phenol 1 applic 11/06/21 18:00 11/08/21 05:43 Menthol/Lanolin/Calamine/Znox 113 Gm Tube TOPICAL 1 applic BID JASWANT Administration Protocol Cholecalciferol 25 mcg 11/07/21 08:00 11/08/21 07:54 Cholecalciferol (Vit D3) 25 Mcg Tablet (1,000 Units) PO 25 mcg DAILYCM JASWANT Administration Citalopram Hydrobromide 10 mg 11/06/21 22:00 11/07/21 20:51 Citalopram 10 Mg Tablet PO 10 mg QHS JASWANT Administration Famotidine 40 mg 11/07/21 06:00 11/08/21 05:42 Famotidine 20 Mg Tablet PO 40 mg DAILY JASWANT Administration Gabapentin 100 mg 11/06/21 22:00 11/08/21 05:45 Gabapentin 100 Mg Capsule PO 100 mg TID JASWANT Administration Hydrochlorothiazide 12.5 mg 11/06/21 22:00 11/07/21 20:51 Hydrochlorothiazide 12.5mg PO 12.5 mg QHS JASWANT Administration Losartan Potassium 100 mg 11/06/21 22:00 11/07/21 20:51 Losartan Potassium 100 Mg Tablet PO 100 mg QHS JASWANT Administration Metformin HCl 500 mg 11/06/21 17:00 11/08/21 07:54 Metformin Hcl 500 Mg Tablet PO 500 mg BIDCM JASWANT Administration Nystatin 1 applic 11/06/21 18:00 11/08/21 05:44 Nystatin Powder 15gm Bottle TOPICAL 1 applic BID COUNTS INCLUDE 234 BEDS AT THE [facility] Administration Protocol Polysaccharide Iron Complex 150 mg 11/07/21 13:00 11/08/21 05:42 Iron Polysaccharide Complex 150 Mg Capsule PO 150 mg DAILY JASWANT Administration Rivaroxaban 10 mg 11/07/21 17:00 11/07/21 17:47 Rivaroxaban 10 Mg Tablet PO 11/21/21 17:01 10 mg DINNER JASWANT Administration Senna/Docusate Sodium 1 tablet 11/06/21 18:00 11/08/21 05:42 Senna/Docusate Sodium 1 Tablet PO 1 tablet BID JASWANT Administration Tramadol HCl 50 mg 11/06/21 14:59 11/08/21 05:43 Tramadol 50 Mg Tablet PO 50 mg Q6H PRN PRN Administration Pain Score 4-10 Tuberculin PPD 0.1 ml 11/14/21 10:00 Tuberculin,Purif.Prot.Deriv. 50 Tu/Ml Vial ID 11/14/21 10:01 X1 ONE Umeclidinium/Vilanterol 1 puff 11/07/21 06:00 11/08/21 05:41 Umeclidinium Brm/Vilanterol 62.5-25 Mcg Inh INHALATION 1 puff DAILY JASWANT Administration Problem List (Last Reviewed 11/06/21 @ 17:[address] Mook Merlos MD) Hypertension (Chronic) Chronic obstructive pulmonary disease (Chronic) Diabetic polyneuropathy (Acute) Gastroesophageal reflux disease (Acute) Diabetes mellitus (Acute) Depression (Acute) Hyperlipidemia (Acute) Debility (Acute) Cervical spinal cord compression (Acute) Vital Signs Temp Pulse Resp BP Pulse Ox 97.5 F L 81 16 130/73 H 90 11/08/21 05:00 11/08/21 05:00 11/07/21 15:12 11/08/21 05:00 11/08/21 07:05 Oxygen Delivery Method Room Air Weight: 68.096 kg Body Mass Index (BMI) 29.3 Sodium 139 mmol/L (136-145) 11/07/21 06:59 Potassium 3.5 mmol/L (3.5-5.1) 11/07/21 06:59 Chloride 106 mmol/L (98-107) 11/07/21 06:59 Carbon Dioxide 27.0 mmol/L (21.0-32.0) 11/07/21 06:59 Anion Gap 6 (5-15) 11/07/21 06:59 BUN 22 mg/dL (7-18) H 11/07/21 06:59 Creatinine 1.03 mg/dL (0.55-1.02) H 11/07/21 06:59 Est GFR (MDRD) Af Amer 67 mL/min (>60) 11/07/21 06:59 Est GFR (MDRD) Non-Af 56 mL/min (>60) L 11/07/21 06:59 BUN/Creatinine Ratio 21.4 RATIO (10-20) H 11/07/21 06:59 Glucose 101 mg/dL (74-106) 11/07/21 06:59 Assessment/Plan: 1. Pain: acetaminophen 1000mg PO Q6H PRN pain 1-3 and tramadol 50mg PO Q6H PRN pain 4-10. Please continue to monitor for S/S of increased pain, PRN usage, constipation, renal function and respiratory depression. 2. DVT prophylaxis: rivaroxaban 10mg PO DINNER thru 11/21/21. Please continue to monitor for S/S of bleeding and hemoglobin (last 10.5g/dL). *3. Hyperlipidemia: atorvastatin 40mg PO QHS. Please consider ordering a lipid panel if clinically appropriate. Last panel from 07/13/20. Thanks. Please continue to monitor for muscle pain. 4. GERD: famotidine 40mg PO daily. Please continue to monitor for S/S of GERD. 5. Diabetic polyneuropathy: gabapentin 100mg PO TID. Please continue to monitor for S/S of confusion and renal function. 6. Hypertension: losartan 100mg PO QHS and hydrochlorothiazide 12.5mg PO QHS. Please continue to monitor BP (last 130/73), renal function, sodium (last 139mmol/L) and potassium (last 3.5mmol/L). *7. Diabetes mellitus II: metformin 500mg PO BIDCM. Please consider ordering a hemoglobin A1c if clinically appropriate. Last A1c 6.1% from 07/13/20. Thanks. Please continue to monitor glucose (last 111mg/dL), diarrhea and renal function. 8. COPD: Anoro 1puff daily. Please continue to monitor HR (last 81) and for S/S of COPD. 9. Iron deficiency (hemoglobin 10.5g/dL): Ferrex 150mg PO DAILYCM. Please continue to monitor hemoglobin, constipation and dark stools. 10. Vitamin D deficiency: cholecalciferol 25mcg PO daily. Please continue to monitor vitamin D levels (last 06/28/2021). Psychotropic Medications: 1. Depression: citalopram 10mg PO QHS. Please see physician note regarding GDR. Unnecessary Medications: None Bowel Regimen: senna/docusate 1T PO BID and bisacodyl 10mg RC daily PRN constipation. Please continue to monitor for S/S of constipation and PRN usage. Date of Note:: 11/08/21
[2021-11-08 10:18] VITALS: O2SAT 95
[2021-11-08 15:22] VITALS: BP 143/74; PULSE 73; RESP 12; TEMP 36.6; O2SAT 95
[2021-11-08] MEDS: Rivaroxaban 10 MG Tablet PO (18:07)
[2021-11-08 20:00] VITALS: RESP 18; O2SAT 96
[2021-11-08] MEDS: Losartan Potassium 100 MG Tablet PO (21:00)
[2021-11-08] MEDS: Atorvastatin Calcium 40 MG Tablet PO (21:00)
[2021-11-08] MEDS: Citalopram 10 MG Tablet PO (21:01)
[2021-11-08] MEDS: hydroCHLOROthiazide 12.5mg 12.5 MG PO (21:01)
[2021-11-09] MEDS: Gabapentin 100 MG Capsule PO ×3 (05:41→21:04)
[2021-11-09] MEDS: Umeclidinium Brm/Vilanterol 62.5-25 mcg Inh 1 PUFF INHALATION (05:41)
[2021-11-09] MEDS: Famotidine 20 MG Tablet 40 MG PO (05:42)
[2021-11-09] MEDS: Iron Polysaccharide Complex 150 MG CAPSULE PO (05:42)
[2021-11-09] MEDS: Senna/Docusate Sodium 1 Tablet PO ×2 (05:43→18:01)
[2021-11-09] MEDS: Menthol/Lanolin/Calamine/Znox 113 GM Tube 1 APPLIC TOPICAL ×2 (05:47→18:02)
[2021-11-09] MEDS: Nystatin Powder 15gm Bottle 1 APPLIC TOPICAL ×2 (05:47→18:02)
[2021-11-09 06:00] LABS: Hematocrit 32.9 % (37-47); Hemoglobin 11.1 g/dL (12.0-15.0)
[2021-11-09 06:26] LABS: Bedside Glucose 107 mg/dL (74-106)
[2021-11-09 07:20] VITALS: O2SAT 92
[2021-11-09] MEDS: metFORMIN HCl 500 MG Tablet PO ×2 (08:25→18:01)
[2021-11-09] MEDS: Cholecalciferol (VIT D3) 25 MCG TABLET (1,000 UNITS) PO (08:26)
[2021-11-09 16:00] VITALS: BP 143/84; PULSE 72; RESP 14; TEMP 36.5; O2SAT 96
[2021-11-09] MEDS: Rivaroxaban 10 MG Tablet PO (18:01)
[2021-11-09] MEDS: Losartan Potassium 100 MG Tablet PO (21:04)
[2021-11-09] MEDS: Citalopram 10 MG Tablet PO (21:04)
[2021-11-09] MEDS: hydroCHLOROthiazide 12.5mg 12.5 MG PO (21:04)
[2021-11-09] MEDS: Atorvastatin Calcium 40 MG Tablet PO (21:04)
--- NOTE | 2021-11-09 23:31 | NURSING ---
pt is alert and oriented x's1 pt is unable to state her date of and date, year. pt was able to state at hat she was in a hospital and why she was here but did not know which hospital. pt is cooperative staff and care given. 02 placed on at hs at 2l/m
[2021-11-10 05:00] VITALS: BP 151/67; PULSE 70; RESP 16; TEMP 36.2; O2SAT 92
[2021-11-10 06:25] LABS: Bedside Glucose 110 mg/dL (74-106)
[2021-11-10] MEDS: Umeclidinium Brm/Vilanterol 62.5-25 mcg Inh 1 PUFF INHALATION (06:25)
[2021-11-10] MEDS: Famotidine 20 MG Tablet 40 MG PO (06:26)
[2021-11-10] MEDS: Iron Polysaccharide Complex 150 MG CAPSULE PO (06:26)
[2021-11-10] MEDS: Menthol/Lanolin/Calamine/Znox 113 GM Tube 1 APPLIC TOPICAL ×2 (06:26→17:09)
[2021-11-10] MEDS: Nystatin Powder 15gm Bottle 1 APPLIC TOPICAL ×2 (06:27→22:08)
[2021-11-10] MEDS: Gabapentin 100 MG Capsule PO ×3 (06:29→22:09)
[2021-11-10 06:35] VITALS: O2SAT 98
[2021-11-10] MEDS: Cholecalciferol (VIT D3) 25 MCG TABLET (1,000 UNITS) PO (09:07)
[2021-11-10] MEDS: metFORMIN HCl 500 MG Tablet PO ×2 (09:07→17:08)
--- NOTE | 2021-11-10 09:17 | NURSING ---
THIS NURSE NOTICED A CLUSTER OF RED,RAISED BLISTER AREA ON PT LEFT BUTTOCK LOOKS LIKE SHINGLES. ASKED PT IF THERE WAS ANY PAIN OR ITCHING ETC. PT STATED NO. HAD RN LOOK AT AREA,NOTE LEFT FOR . AND PUT PT IN PRECAUTIONS.
--- NOTE | 2021-11-10 10:01 | CASEMGMT ---
Social Work IDT met with patient and Toshia, Long-Term Director, via conference call for care plan meeting. Discussed patient's progress in PT/OT/ST and nursing. Pt making progress. Explained Medicare benefit. Pt has Medicaid as secondary and the goal is to DC by day 21 which is 11/26. Pt will return to [facility] with / care. SW to continue to follow to coordinate DC plans. KALEB MakiW
[2021-11-10] MEDS: traMADol 50 MG Tablet PO (15:49)
[2021-11-10 15:54] VITALS: BP 157/75; PULSE 74; RESP 16; TEMP 36.2; O2SAT 95
[2021-11-10 15:58] VITALS: O2SAT 94
[2021-11-10] MEDS: Rivaroxaban 10 MG Tablet PO (17:09)
[2021-11-10 22:00] VITALS: BP 141/87; PULSE 75; RESP 18; TEMP 36; O2SAT 93
[2021-11-10] MEDS: Atorvastatin Calcium 40 MG Tablet PO (22:09)
[2021-11-10] MEDS: hydroCHLOROthiazide 12.5mg 12.5 MG PO (22:09)
[2021-11-10] MEDS: Citalopram 10 MG Tablet PO (22:09)
[2021-11-10] MEDS: Losartan Potassium 100 MG Tablet PO (22:09)
[2021-11-10] MEDS: Acyclovir 800 MG Tablet PO (22:10)
[2021-11-11 05:00] VITALS: BP 152/70; PULSE 67; O2SAT 90
[2021-11-11] MEDS: Famotidine 20 MG Tablet 40 MG PO (05:14)
[2021-11-11] MEDS: Umeclidinium Brm/Vilanterol 62.5-25 mcg Inh 1 PUFF INHALATION (05:15)
[2021-11-11] MEDS: Gabapentin 100 MG Capsule PO ×3 (05:15→22:37)
[2021-11-11] MEDS: Iron Polysaccharide Complex 150 MG CAPSULE PO (05:15)
[2021-11-11] MEDS: Nystatin Powder 15gm Bottle 1 APPLIC TOPICAL ×2 (05:15→22:37)
[2021-11-11] MEDS: Acyclovir 800 MG Tablet PO ×5 (05:15→22:37)
[2021-11-11] MEDS: Menthol/Lanolin/Calamine/Znox 113 GM Tube 1 APPLIC TOPICAL ×2 (05:16→18:47)
--- NOTE | 2021-11-11 05:43 | PCM.PN.BLA ---
Progress Note Rapid Response Nurse reports that patient was lowered to the floor as patient was about to fall. Patient reports that she felt lightheaded but lightheadedness is resolved. On Physical exams patient is alert and oriented. Dressing on chin and lower neck. Heart sounds S1, S2. LCTA Abdomen soft; non tender; non distended. Extremities without edema Lightheadedness and Fall Can not rule out syncope EKG ordered. Returned negative. Check orthostatic vitals. If positive give IVF.
[2021-11-11 05:50] VITALS: BP 122/70; BP 132/75; PULSE 74; PULSE 78
--- NOTE | 2021-11-11 05:50 | EKG12_ITS ---
Test Reason : DYSRHYTHMIA Blood Pressure : / mmHG Vent. Rate : 075 BPM Atrial Rate : 075 BPM P-R Int : 154 ms QRS Dur : 066 ms QT Int : 406 ms P-R-T Axes : 038 008 043 degrees QTc Int : 453 ms Normal sinus rhythm Septal infarct , age undetermined Abnormal ECG When compared with ECG of 04-NOV-2021 10:39, Septal infarct is now Present Confirmed by GET AKHTAR, SHANNON ([id number]), online content editor MARCELA HANNA ([id number]) on 11/17/2021 12:27:16 PM Referred By: YAYA Confirmed By:SHANNON DEUTSCH MD
--- NOTE | 2021-11-11 06:03 | PN_ITS ---
Progress Note Positive orthostatic vitals. IVF ordered.
--- NOTE | 2021-11-11 06:03 | PCM.PN.BLA ---
Progress Note Positive orthostatic vitals. IVF ordered.
[2021-11-11] MEDS: 0.9% Normal Saline 1,000 ML 100 ML IV ×2 (06:14→16:18)
[2021-11-11 06:16] LABS: Bedside Glucose 127 mg/dL (74-106)
--- NOTE | 2021-11-11 07:29 | NURSING ---
0520 pr requested to use the br and staff assisted pt to the br with walker and one assist. pt voided and staff assisted with cleaning and putting on the attend. while pt was standing pt became unsteady and started to sit down on the toilet, pt reported that she was dizzy and dropped to the toilet. pt became non responsive and then started to fall back on the toilet. staff called for assistance, pt became stiff and slid off the toilet between the wall and toilet . rn arrived and pt remained unresponsive GARDE MANAGER was then called. staff moved pt out between the wall and toilet and in doing so hit pt in the forehead on the toilet paper nino leaving a red talha. red area was also noted on pts rt knee 0530 vs were 152/70 ap 67 and sp02 was 90%. accu check was 127. pt was starting to respond to staff. respiratory here, pt was then moved to the bed with 2 assists via w/c. pt was respond more and was able to state that she was in [facility]. pt skin was noted to cool and clammy. hospitalist DR. Philippe assessed pt and ordered an EKG and orthostatic vs, if orthos were positive iv fluids were to be started 0545 EKG completed. 0550 ortho vs were as follows:laying 132/74 ap 74, sitting 122/70 ap was 78. pt was unable to completed standing vs d/t dizziness and being tired, vs were taken again after pt sat down and was 105/69 ap 74 sp02 checked at this time and was 88% on ra and 02 was placed on at 2l/m via n/c. sp02 came up to 90% and 02 was increased to 3l/m with sp02 came up to 93%. 0600 rn to start iv fluids.
--- NOTE | 2021-11-11 07:54 | NURSING ---
ALL CARE GIVEN IN ROOM DUE TO PT IN PRECAUTIONS FOR SHINGLES.
--- NOTE | 2021-11-11 07:57 | RAD_ITS ---
STUDY: X-RAY CHEST REASON FOR EXAM: Female, 76 years old. Hypoxia, near syncope. TECHNIQUE: PA and lateral views of the chest. COMPARISON: Chest x-ray dated NOVEMBER 03, 2021 FINDINGS: The lungs are clear and expanded. There is no demonstrated pleural abnormality. Normal size heart. Normal mediastinum and chris. Normal visualized pulmonary arteries. There is atherosclerotic calcification of the aortic arch with tortuosity. There are diffuse degenerative changes of the visualized thoracic spine. Normal visualized ribs, clavicles, and shoulders. There is no demonstrated abnormality of the visualized soft tissue structures of the upper abdomen. Right upper quadrant surgical clips are present. RAD/Chest PA and Lateral IMPRESSION: Degenerative changes, as described above. No demonstrated acute cardiopulmonary process. Electronically Signed: Josiah Akins MD at 9:04 EDT ,
[2021-11-11] MEDS: metFORMIN HCl 500 MG Tablet PO ×2 (08:02→18:47)
[2021-11-11] MEDS: Cholecalciferol (VIT D3) 25 MCG TABLET (1,000 UNITS) PO (08:02)
[2021-11-11 08:54] LABS: Absolute Lymphocyte Count 1.09 X10^3/uL (0.83-4.51); Absolute Neutrophil Count 10.2 X10^3/uL (2.0-7.7); Basophil# 0.04 X10^3/uL; Basophil% 0.3 % (0-1); Eosinophils% 3.2 % (0-5); Hematocrit 35.6 % (37-47); Hemoglobin 12.2 g/dL (12.0-15.0); Lymphocyte # 1.09 X10^3/ul (0.83-4.51); Lymphocyte % 8.6 % (19-41); Mean Corp Hgb Conc 34.3 g/dL (32-36); Mean Corpuscular Hgb 32.1 pg (27.0-32.0); Mean Corpuscular Volume 93.7 fL (81-99); Monocyte# 0.86 X10^3/uL; Monocyte% 6.8 % (0-10); NRBC Flagged by Analyzer 0 % (0-5); Neutrophil # 10.16 X10^3/uL (2.7-7.7); Neutrophil % 80.2 % (47-70); Platelet Count 210 K/mm3 (150-450); White Blood Count 12.7 K/mm3 (4.4-11.0)
[2021-11-11 09:06] LABS: Anion Gap 8 (5-15); BUN 18 mg/dL (7-18); BUN/Creat Ratio 16.2 RATIO (10-20); Calcium,Total 8.8 mg/dL (8.5-10.1); Chloride 101 mmol/L (98-107); Creatinine, Serum 1.11 mg/dL (0.55-1.02); EST Glomerular Filtration Rate 51 mL/min (>60); Est Glom Filt Rate - Afr Amer 62 mL/min (>60); Estimated Creatinine Clearance 31.45 ml/min; Glucose 178 mg/dL (74-106); Potassium 3.8 mmol/L (3.5-5.1); Sodium Level 135 mmol/L (136-145)
[2021-11-11 10:30] VITALS: PULSE 79; RESP 18; O2SAT 97
[2021-11-11 14:32] VITALS: BP 143/74; PULSE 70; RESP 20; TEMP 37.4; O2SAT 97
--- NOTE | 2021-11-11 14:35 | MDS.RN ---
Pain interview for SALEEM 11/13/21
[2021-11-11] MEDS: Rivaroxaban 10 MG Tablet PO (18:48)
[2021-11-11] MEDS: Senna/Docusate Sodium 1 Tablet PO (18:48)
--- NOTE | 2021-11-11 19:15 | NURSING ---
WBC 12.7 today, dr enrique updated, new order to test covid and send UA and c/s.
[2021-11-11] MEDS: Atorvastatin Calcium 40 MG Tablet PO (22:37)
[2021-11-11] MEDS: hydroCHLOROthiazide 12.5mg 12.5 MG PO (22:37)
[2021-11-11] MEDS: Losartan Potassium 100 MG Tablet PO (22:37)
[2021-11-11] MEDS: Citalopram 10 MG Tablet PO (22:37)
[2021-11-12] MEDS: 0.9% Normal Saline 1,000 ML 100 ML IV ×3 (03:01→23:28)
--- NOTE | 2021-11-12 03:15 | NURSING ---
urine collected for a UA and C&S and sent to the lab. specimen was collected by straight cath and pt tolerated well
[2021-11-12 03:18] LABS: Mucous, Urine 0 SEEN /hpf (<or=2+); Red Blood Cells-Urine 0 SEEN /hpf (0-5); Squamous Epithelial Cells - UA 0 SEEN /hpf (5-10)
[2021-11-12 03:20] LABS: Color, Urine Yellow (Yellow); Glucose, Dipstick Normal (Normal); Ketone-Dipstick Negative (Negative); Leukocyte Esterase-Dipstick 500 /ul (Negative); Nitrite-Dipstick Positive (Negative); Occult Blood-Urine Negative /ul (Negative); Protein-Dipstick Negative (Negative); Specific Gravity, Urine 1.005 (1.002-1.030); Urine Bilirubin Dipstick Negative (Negative); Urine Clarity Clear (Clear); Urine Urobilinogen Normal (Normal)
[2021-11-12 03:27] LABS: Bacteria 3+ /hpf (None Seen); White Blood Cells 5-10 SEEN /hpf (0-5)
[2021-11-12 05:00] VITALS: BP 145/79; PULSE 76; RESP 18; TEMP 36.8; O2SAT 93
[2021-11-12] MEDS: Menthol/Lanolin/Calamine/Znox 113 GM Tube 1 APPLIC TOPICAL ×2 (05:52→17:09)
[2021-11-12] MEDS: Umeclidinium Brm/Vilanterol 62.5-25 mcg Inh 1 PUFF INHALATION (05:52)
[2021-11-12] MEDS: Famotidine 20 MG Tablet 40 MG PO (05:53)
[2021-11-12] MEDS: Iron Polysaccharide Complex 150 MG CAPSULE PO (05:53)
[2021-11-12] MEDS: Gabapentin 100 MG Capsule PO ×3 (05:53→22:43)
[2021-11-12] MEDS: Acyclovir 800 MG Tablet PO ×5 (05:53→22:43)
[2021-11-12] MEDS: Nystatin Powder 15gm Bottle 1 APPLIC TOPICAL ×2 (05:53→17:09)
[2021-11-12 06:35] LABS: Bedside Glucose 131 mg/dL (74-106)
[2021-11-12] MEDS: metFORMIN HCl 500 MG Tablet PO ×2 (08:09→17:08)
[2021-11-12] MEDS: Cholecalciferol (VIT D3) 25 MCG TABLET (1,000 UNITS) PO (08:10)
[2021-11-12 10:20] VITALS: O2SAT 97
[2021-11-12 10:41] VITALS: PULSE 71; RESP 20; O2SAT 97
[2021-11-12 11:21] VITALS: BP 149/76; TEMP 36.6
--- NOTE | 2021-11-12 14:34 | CASEMGMT ---
Social Work BIMS and PHQ-9 completed for MDS assessment. Maritza Galvez, PUBLIC RELATIONS ANALYST SPIRAL GEAR GENERATOR
[2021-11-12] MEDS: Senna/Docusate Sodium 1 Tablet PO (17:08)
[2021-11-12] MEDS: Rivaroxaban 10 MG Tablet PO (17:08)
[2021-11-12] MEDS: hydroCHLOROthiazide 12.5mg 12.5 MG PO (22:43)
[2021-11-12] MEDS: Losartan Potassium 100 MG Tablet PO (22:43)
[2021-11-12] MEDS: Citalopram 10 MG Tablet PO (22:43)
[2021-11-12] MEDS: Atorvastatin Calcium 40 MG Tablet PO (22:43)
[2021-11-13] MEDS: Umeclidinium Brm/Vilanterol 62.5-25 mcg Inh 1 PUFF INHALATION (05:45)
[2021-11-13] MEDS: Gabapentin 100 MG Capsule PO ×3 (05:45→21:20)
[2021-11-13] MEDS: Iron Polysaccharide Complex 150 MG CAPSULE PO (05:46)
[2021-11-13] MEDS: Nystatin Powder 15gm Bottle 1 APPLIC TOPICAL ×2 (05:46→17:17)
[2021-11-13] MEDS: Menthol/Lanolin/Calamine/Znox 113 GM Tube 1 APPLIC TOPICAL ×2 (05:46→17:25)
[2021-11-13] MEDS: Famotidine 20 MG Tablet 40 MG PO (05:46)
[2021-11-13] MEDS: Acyclovir 800 MG Tablet PO ×5 (05:46→20:20)
[2021-11-13 06:26] LABS: Bedside Glucose 101 mg/dL (74-106)
[2021-11-13 07:46] VITALS: O2SAT 97
[2021-11-13] MEDS: Cholecalciferol (VIT D3) 25 MCG TABLET (1,000 UNITS) PO (08:51)
[2021-11-13] MEDS: metFORMIN HCl 500 MG Tablet PO ×2 (08:51→17:15)
[2021-11-13] MEDS: 0.9% Normal Saline 1,000 ML 100 ML IV ×2 (09:47→20:13)
[2021-11-13 09:54] VITALS: TEMP 36.6
[2021-11-13] MEDS: traMADol 50 MG Tablet PO (11:34)
--- NOTE | 2021-11-13 11:51 | ST ---
Therapy observed severe coughing fit following sequential sips with straw, recommend NO STRAWS until further evaluation by ST
[2021-11-13 16:56] VITALS: BP 161/84; PULSE 71; RESP 16; TEMP 36.4; O2SAT 94
[2021-11-13] MEDS: Rivaroxaban 10 MG Tablet PO (17:15)
[2021-11-13] MEDS: Cephalexin 500 MG Capsule PO (17:15)
[2021-11-13] MEDS: Senna/Docusate Sodium 1 Tablet PO (17:16)
--- NOTE | 2021-11-13 17:29 | NURSING ---
pt remains in shingle precautions, all care done in room.
[2021-11-13] MEDS: Losartan Potassium 100 MG Tablet PO (20:19)
[2021-11-13] MEDS: Atorvastatin Calcium 40 MG Tablet PO (20:19)
[2021-11-13] MEDS: hydroCHLOROthiazide 12.5mg 12.5 MG PO (20:19)
[2021-11-13] MEDS: Citalopram 10 MG Tablet PO (20:19)
[2021-11-13 22:41] VITALS: O2SAT 95
[2021-11-14 05:14] LABS: Absolute Lymphocyte Count 1.52 X10^3/uL (0.83-4.51); Absolute Neutrophil Count 5.2 X10^3/uL (2.0-7.7); Basophil# 0.02 X10^3/uL; Basophil% 0.2 % (0-1); Eosinophil# 0.34 X10^3/uL; Eosinophils% 4.2 % (0-5); Hematocrit 31.8 % (37-47); Hemoglobin 10.8 g/dL (12.0-15.0); Lymphocyte # 1.52 X10^3/ul (0.83-4.51); Lymphocyte % 18.8 % (19-41); Mean Corpuscular Hgb 32.4 pg (27.0-32.0); Mean Corpuscular Volume 95.5 fL (81-99); Mean Platelet Vol. 10.1 fl (6.2-12.0); Monocyte# 0.88 X10^3/uL; Monocyte% 10.9 % (0-10); NRBC Flagged by Analyzer 0 % (0-5); Neutrophil # 5.23 X10^3/uL (2.7-7.7); Neutrophil % 64.9 % (47-70); Platelet Count 187 K/mm3 (150-450); RBC Distribution Width CV 11.9 % (11.6-14.6); RBC Distribution Width SD 41.8 fl (35.1-43.9); Red Blood Count 3.33 M/mm3 (4.2-5.4); White Blood Count 8.1 K/mm3 (4.4-11.0)
[2021-11-14 05:37] LABS: Anion Gap 7 (5-15); BUN 11 mg/dL (7-18); BUN/Creat Ratio 12.3 RATIO (10-20); Calcium,Total 7.9 mg/dL (8.5-10.1); Chloride 109 mmol/L (98-107); EST Glomerular Filtration Rate 65 mL/min (>60); Est Glom Filt Rate - Afr Amer 79 mL/min (>60); Estimated Creatinine Clearance 38.79 ml/min; Glucose 98 mg/dL (74-106); Potassium 3.7 mmol/L (3.5-5.1); Sodium Level 141 mmol/L (136-145)
[2021-11-14] MEDS: Gabapentin 100 MG Capsule PO ×3 (05:53→20:35)
[2021-11-14] MEDS: Acyclovir 800 MG Tablet PO ×5 (05:54→20:32)
[2021-11-14] MEDS: Umeclidinium Brm/Vilanterol 62.5-25 mcg Inh 1 PUFF INHALATION (05:55)
[2021-11-14] MEDS: Famotidine 20 MG Tablet 40 MG PO (05:55)
[2021-11-14] MEDS: Iron Polysaccharide Complex 150 MG CAPSULE PO (05:55)
[2021-11-14] MEDS: 0.9% Normal Saline 1,000 ML 100 ML IV ×2 (05:58→16:18)
[2021-11-14] MEDS: Nystatin Powder 15gm Bottle 1 APPLIC TOPICAL ×2 (06:17→18:01)
[2021-11-14] MEDS: Menthol/Lanolin/Calamine/Znox 113 GM Tube 1 APPLIC TOPICAL ×2 (06:18→18:01)
[2021-11-14] MEDS: Senna/Docusate Sodium 1 Tablet PO ×2 (06:19→17:57)
[2021-11-14] MEDS: Cephalexin 500 MG Capsule PO ×2 (06:19→17:57)
[2021-11-14 06:41] LABS: Bedside Glucose 105 mg/dL (74-106)
[2021-11-14] MEDS: Cholecalciferol (VIT D3) 25 MCG TABLET (1,000 UNITS) PO (08:18)
[2021-11-14] MEDS: metFORMIN HCl 500 MG Tablet PO ×2 (08:18→17:57)
[2021-11-14] MEDS: Tuberculin,Purif.prot.deriv. 50 TU/ML Vial 0.1 ML ID (10:36)
--- NOTE | 2021-11-14 11:56 | PCM.PN.BLA ---
Progress Note Afebrile Vital signs are stable but the systolic blood pressure is often above goal. Maintaining appropriate oxygen saturation on room air. She is incontinent of urine. Poor appetite-~25 to 49% of her breakfast this morning. She had a UA done on 11/12/2021 that was positive for nitrites and had 5-10 WBCs per high-power field with 3+ bacteria. She had a mild increase in temp to 99.3 the previous night. Urine culture grew E. coli and she was started on Keflex 500 mg twice daily on 11/13/2021. Urine sensitivities are back today and the E. coli is sensitive to cephalosporins. Will continue treatment for total of 7 days.
[2021-11-14] MEDS: traMADol 50 MG Tablet PO (13:49)
[2021-11-14 14:00] VITALS: BP 160/89; PULSE 83; RESP 16; TEMP 36.6; O2SAT 92
[2021-11-14] MEDS: Rivaroxaban 10 MG Tablet PO (17:57)
[2021-11-14] MEDS: hydroCHLOROthiazide 12.5mg 12.5 MG PO (20:32)
[2021-11-14] MEDS: Atorvastatin Calcium 40 MG Tablet PO (20:32)
[2021-11-14] MEDS: Citalopram 10 MG Tablet PO (20:32)
[2021-11-14] MEDS: Losartan Potassium 100 MG Tablet PO (20:32)
[2021-11-14 23:19] VITALS: PULSE 80; RESP 18; O2SAT 96
[2021-11-15] MEDS: 0.9% Normal Saline 1,000 ML 100 ML IV ×3 (05:39→23:37)
[2021-11-15] MEDS: Umeclidinium Brm/Vilanterol 62.5-25 mcg Inh 1 PUFF INHALATION (05:39)
[2021-11-15] MEDS: Menthol/Lanolin/Calamine/Znox 113 GM Tube 1 APPLIC TOPICAL ×2 (05:39→17:18)
[2021-11-15] MEDS: Famotidine 20 MG Tablet 40 MG PO (05:41)
[2021-11-15] MEDS: Gabapentin 100 MG Capsule PO ×3 (05:41→20:32)
[2021-11-15] MEDS: Iron Polysaccharide Complex 150 MG CAPSULE PO (05:42)
[2021-11-15] MEDS: Nystatin Powder 15gm Bottle 1 APPLIC TOPICAL ×2 (05:42→17:19)
[2021-11-15] MEDS: Acyclovir 800 MG Tablet PO ×5 (05:42→20:27)
[2021-11-15] MEDS: Senna/Docusate Sodium 1 Tablet PO ×2 (05:45→17:22)
[2021-11-15] MEDS: Cephalexin 500 MG Capsule PO ×2 (05:45→17:22)
[2021-11-15 06:36] LABS: Bedside Glucose 109 mg/dL (74-106)
[2021-11-15] MEDS: Cholecalciferol (VIT D3) 25 MCG TABLET (1,000 UNITS) PO (09:23)
[2021-11-15] MEDS: metFORMIN HCl 500 MG Tablet PO ×2 (09:24→17:17)
[2021-11-15 13:39] VITALS: BP 150/81; PULSE 82; RESP 16; TEMP 36.4; O2SAT 93
[2021-11-15] MEDS: Rivaroxaban 10 MG Tablet PO (17:23)
[2021-11-15] MEDS: Citalopram 10 MG Tablet PO (20:27)
[2021-11-15] MEDS: Losartan Potassium 100 MG Tablet PO (20:27)
[2021-11-15] MEDS: Atorvastatin Calcium 40 MG Tablet PO (20:27)
[2021-11-15] MEDS: hydroCHLOROthiazide 12.5mg 12.5 MG PO (20:27)
[2021-11-16] MEDS: Umeclidinium Brm/Vilanterol 62.5-25 mcg Inh 1 PUFF INHALATION (05:16)
[2021-11-16] MEDS: Acyclovir 800 MG Tablet PO ×5 (05:17→21:49)
[2021-11-16] MEDS: Cephalexin 500 MG Capsule PO ×2 (05:17→17:01)
[2021-11-16] MEDS: Famotidine 20 MG Tablet 40 MG PO (05:17)
[2021-11-16] MEDS: Senna/Docusate Sodium 1 Tablet PO ×2 (05:17→17:01)
[2021-11-16] MEDS: Iron Polysaccharide Complex 150 MG CAPSULE PO (05:17)
[2021-11-16] MEDS: Nystatin Powder 15gm Bottle 1 APPLIC TOPICAL ×2 (05:18→17:15)
[2021-11-16] MEDS: Menthol/Lanolin/Calamine/Znox 113 GM Tube 1 APPLIC TOPICAL ×2 (05:18→17:15)
[2021-11-16] MEDS: Gabapentin 100 MG Capsule PO ×3 (05:20→21:49)
[2021-11-16 06:21] LABS: Bedside Glucose 123 mg/dL (74-106)
[2021-11-16] MEDS: metFORMIN HCl 500 MG Tablet PO ×2 (08:26→17:01)
[2021-11-16] MEDS: Cholecalciferol (VIT D3) 25 MCG TABLET (1,000 UNITS) PO (08:26)
[2021-11-16 10:43] VITALS: PULSE 77; TEMP 35.7
[2021-11-16] MEDS: 0.9% Normal Saline 1,000 ML 100 ML IV ×2 (11:14→21:56)
[2021-11-16 13:27] VITALS: BP 156/85
[2021-11-16] MEDS: Rivaroxaban 10 MG Tablet PO (17:01)
[2021-11-16 21:35] VITALS: PULSE 90; RESP 18; O2SAT 97
[2021-11-16] MEDS: hydroCHLOROthiazide 12.5mg 12.5 MG PO (21:48)
[2021-11-16] MEDS: Citalopram 10 MG Tablet PO (21:48)
[2021-11-16] MEDS: Losartan Potassium 100 MG Tablet PO (21:48)
[2021-11-16] MEDS: Atorvastatin Calcium 40 MG Tablet PO (21:49)
[2021-11-16 21:59] VITALS: BP 163/94; PULSE 90; RESP 18; TEMP 36.3; O2SAT 97
[2021-11-17 01:44] VITALS: BP 170/91
[2021-11-17 05:19] VITALS: BP 145/79; PULSE 83; TEMP 35.7; O2SAT 97
[2021-11-17] MEDS: Umeclidinium Brm/Vilanterol 62.5-25 mcg Inh 1 PUFF INHALATION (05:28)
[2021-11-17] MEDS: Menthol/Lanolin/Calamine/Znox 113 GM Tube 1 APPLIC TOPICAL ×2 (05:28→17:42)
[2021-11-17] MEDS: Nystatin Powder 15gm Bottle 1 APPLIC TOPICAL ×2 (05:29→17:42)
[2021-11-17] MEDS: Iron Polysaccharide Complex 150 MG CAPSULE PO (05:29)
[2021-11-17] MEDS: Cephalexin 500 MG Capsule PO ×2 (05:29→17:38)
[2021-11-17] MEDS: Famotidine 20 MG Tablet 40 MG PO (05:30)
[2021-11-17] MEDS: Gabapentin 100 MG Capsule PO ×3 (05:30→20:20)
[2021-11-17] MEDS: Senna/Docusate Sodium 1 Tablet PO (05:31)
[2021-11-17] MEDS: Acyclovir 800 MG Tablet PO ×4 (05:31→17:38)
[2021-11-17 06:16] LABS: Bedside Glucose 135 mg/dL (74-106)
[2021-11-17] MEDS: Cholecalciferol (VIT D3) 25 MCG TABLET (1,000 UNITS) PO (07:56)
[2021-11-17] MEDS: 0.9% Normal Saline 1,000 ML 100 ML IV (07:56)
[2021-11-17] MEDS: metFORMIN HCl 500 MG Tablet PO ×2 (07:56→17:38)
[2021-11-17] MEDS: amLODIPine 2.5 MG Tablet PO (08:01)
--- NOTE | 2021-11-17 08:44 | NURSING ---
Registered Massage Therapist Note: MDS Section F complete for SALEEM 11/13/21.
[2021-11-17 09:54] VITALS: O2SAT 97
[2021-11-17] MEDS: Glucerna Shake 120 ML LIQUID PO ×3 (11:27→20:15)
[2021-11-17 12:24] VITALS: PULSE 86; RESP 20; TEMP 35.8; O2SAT 99
[2021-11-17 14:04] VITALS: BP 157/85
[2021-11-17] MEDS: Rivaroxaban 10 MG Tablet PO (17:38)
[2021-11-17] MEDS: amLODIPine 5 MG Tablet PO (20:16)
[2021-11-17] MEDS: hydroCHLOROthiazide 12.5mg 12.5 MG PO (20:16)
[2021-11-17] MEDS: Losartan Potassium 100 MG Tablet PO (20:17)
[2021-11-17] MEDS: Atorvastatin Calcium 40 MG Tablet PO (20:17)
[2021-11-17] MEDS: Citalopram 10 MG Tablet PO (20:17)
[2021-11-18 06:31] LABS: Bedside Glucose 144 mg/dL (74-106)
[2021-11-18] MEDS: Menthol/Lanolin/Calamine/Znox 113 GM Tube 1 APPLIC TOPICAL ×2 (06:50→17:42)
[2021-11-18] MEDS: Cephalexin 500 MG Capsule PO ×2 (06:51→17:43)
[2021-11-18] MEDS: Iron Polysaccharide Complex 150 MG CAPSULE PO (06:51)
[2021-11-18] MEDS: Nystatin Powder 15gm Bottle 1 APPLIC TOPICAL ×2 (06:51→20:17)
[2021-11-18] MEDS: Umeclidinium Brm/Vilanterol 62.5-25 mcg Inh 1 PUFF INHALATION (06:52)
[2021-11-18] MEDS: Famotidine 20 MG Tablet 40 MG PO (06:53)
[2021-11-18] MEDS: Gabapentin 100 MG Capsule PO ×3 (06:57→20:16)
[2021-11-18] MEDS: Glucerna Shake 120 ML LIQUID PO ×4 (06:58→20:16)
[2021-11-18] MEDS: metFORMIN HCl 500 MG Tablet PO ×2 (09:14→17:41)
[2021-11-18] MEDS: Cholecalciferol (VIT D3) 25 MCG TABLET (1,000 UNITS) PO (09:15)
[2021-11-18] MEDS: 0.9 % NaCl (Sterile) Posiflush 10 mL IV (09:26)
--- NOTE | 2021-11-18 09:33 | NURSING ---
PT NOTIFIED THAT A STAFF MEMBER TESTED POSITIVE FOR COVID.
--- NOTE | 2021-11-18 09:41 | NURSING ---
spoke to patient to notify that a staff member had tested positive for COVID. informed resident that part of our protocol is to notify a point of contact as well. patient requested that Toshia Nicolas be contacted. A message was left for Toshia on her voicemail with the unit phone number to call with any questions
--- NOTE | 2021-11-18 11:39 | CASEMGMT ---
Addendum entered by Maritza Galvez 11/19/21 14:19: Received return call from Toshia. Toshia is agreeable to DC 11/26. The longterm will transport pt. Toshia agreeable to [facility] - [facility]. Referral made to [facility] PT/OT/ST. Referred to [facility] [place]2. Spoke to pt about DC plans. Pt is agreeable. Plan: DC to Shelter 11/26, [facility] PT/OT/ST, new O2 Original Note: Social Work Left message with Toshia to confirm DC plans for 11/26. Maritza Galvez, MACHINE OPERATOR HOP WORKER CHOPPER FEEDER
[2021-11-18] MEDS: traMADol 50 MG Tablet PO (14:53)
[2021-11-18 15:24] VITALS: BP 150/87; PULSE 94; RESP 17; TEMP 36.2; O2SAT 91
[2021-11-18] MEDS: Rivaroxaban 10 MG Tablet PO (17:42)
[2021-11-18] MEDS: Senna/Docusate Sodium 1 Tablet PO (17:43)
[2021-11-18 20:10] VITALS: BP 122/67; PULSE 91; TEMP 36.2; O2SAT 97
[2021-11-18] MEDS: Losartan Potassium 100 MG Tablet PO (20:17)
[2021-11-18] MEDS: hydroCHLOROthiazide 12.5mg 12.5 MG PO (20:17)
[2021-11-18] MEDS: Citalopram 10 MG Tablet PO (20:17)
[2021-11-18] MEDS: amLODIPine 5 MG Tablet PO (20:17)
[2021-11-18] MEDS: Atorvastatin Calcium 40 MG Tablet PO (20:18)
[2021-11-19] MEDS: Senna/Docusate Sodium 1 Tablet PO (05:37)
[2021-11-19] MEDS: Glucerna Shake 120 ML LIQUID PO ×4 (05:37→21:11)
[2021-11-19] MEDS: Umeclidinium Brm/Vilanterol 62.5-25 mcg Inh 1 PUFF INHALATION (05:37)
[2021-11-19] MEDS: Famotidine 20 MG Tablet 40 MG PO (05:37)
[2021-11-19] MEDS: Nystatin Powder 15gm Bottle 1 APPLIC TOPICAL ×2 (05:37→21:15)
[2021-11-19] MEDS: Gabapentin 100 MG Capsule PO ×3 (05:37→21:12)
[2021-11-19] MEDS: Iron Polysaccharide Complex 150 MG CAPSULE PO (05:38)
[2021-11-19] MEDS: Menthol/Lanolin/Calamine/Znox 113 GM Tube 1 APPLIC TOPICAL ×2 (05:38→17:37)
[2021-11-19] MEDS: Cephalexin 500 MG Capsule PO ×2 (05:38→17:41)
[2021-11-19 06:21] LABS: Bedside Glucose 117 mg/dL (74-106)
[2021-11-19] MEDS: Cholecalciferol (VIT D3) 25 MCG TABLET (1,000 UNITS) PO (07:48)
[2021-11-19] MEDS: metFORMIN HCl 500 MG Tablet PO ×2 (07:48→17:41)
[2021-11-19] MEDS: 0.9 % NaCl (Sterile) Posiflush 10 mL IV (11:05)
[2021-11-19 11:21] VITALS: PULSE 20; RESP 84; TEMP 35.4; O2SAT 93
[2021-11-19 13:06] VITALS: BP 135/75
--- NOTE | 2021-11-19 14:47 | DS.PCM_ITS ---
Providers Date of Admission: 11/06/21 Primary Care Physician: Dr. Mook Merlos MD Reason For Visit: C3-C4 DISK RUPTURE, SPINAL CORD COMPRESSION Diagnosis Discharge Diagnosis (1) Debility: Status: Acute Code(s): R53.81 - Other malaise (2) Cervical spinal cord compression: Status: Resolved Code(s): G95.20 - Unspecified cord compression (3) Hyperlipidemia: Status: Acute Code(s): E78.5 - Hyperlipidemia, unspecified (4) Depression: Status: Acute Code(s): F32.A - Depression, unspecified (5) Diabetes mellitus: Status: Acute Code(s): E11.9 - Type 2 diabetes mellitus without complications (6) Gastroesophageal reflux disease: Status: Acute Code(s): K21.9 - Gastro-esophageal reflux disease without esophagitis (7) Diabetic polyneuropathy: Status: Acute Code(s): E11.42 - Type 2 diabetes mellitus with diabetic polyneuropathy (8) Chronic obstructive pulmonary disease: Status: Chronic Code(s): J44.9 - Chronic obstructive pulmonary disease, unspecified (9) Hypertension: Status: Chronic Code(s): I10 - Essential (primary) hypertension Medications at Discharge Home Medications atorvastatin 40 mg PO QHS 07/28/21 citalopram 10 mg PO QHS 07/28/21 metformin 500 mg PO BID 07/28/21 famotidine 40 mg tablet 40 mg PO DAILY 10/05/21 gabapentin 100 mg capsule 100 mg PO TID 10/05/21 Bevespi Aerosphere 2 puff INHALATION BID 11/03/21 cholecalciferol (vitamin D3) [Vitamin D3] 25 mcg PO DAILY 11/03/21 valsartan-hydrochlorothiazide 1 tab PO QHS 11/03/21 amlodipine 5 mg PO QHS 30 Days #30 tab 11/19/21 polysaccharide iron complex [Ferrex 150] 150 mg PO DAILY 30 Days #30 cap 11/19/21 tramadol 50 mg PO Q6H PRN PRN 7 Days #28 tab 11/19/21 Hospital Course Operations - (cervical decompression/fusion.) Procedures None Summary of Care Provided Minutes Spent on Discharge: 35 Hospital Course: 76 year old female with below past medical history hospitalized for cervical spinal cord compression, underwent cervical spine decompression, fusion 11/04/[address] Freedman, admitted to TCU with debility, here for rehabilitation, strengthening, prior to discharge home to nursing home. Needs ENT consultation for aphonia status post cervical fusion. Discharge to Care Home 11/26/2021, [facility] PT/OT/ST, new O2. Physical Exam Const alert General Appearance: cooperative HEENT normocephalic Eyes PERRL and EOMs intact bilaterally Neck supple, no JVD and no carotid bruits Resp normal respiratory effort, normal air movement and clear to auscultation bilaterally Cardio regular rate and regular rhythm GI normal to inspection, nondistended, normoactive bowel sounds, non-tender and non-distended Extremity normal capillary refill General Extremity: Negative for edema Skin no rashes or lesions noted General Skin Exam: no breakdown Psych affect normal Appearance: appropriate Weight / BMI Weight Weight: 66.224 kg Body Mass Index (BMI) 29.3 ABG / Lab / Microbiology Data Result Diagrams: 11/14/21 04:52 11/14/21 04:52 Laboratory: Laboratory Results - last 24 hr 11/19/21 06:03: POC Glucose 117 H Microbiology: Microbiology 11/15/21 11:15 Nasal Secretion SARS-CoV-2 Antigen (Rapid) - Final 11/12/21 03:00 Urine, Catheterized Urine Culture - Final Presumptive E. coli 11/13/21 10:18 Nasal Secretion SARS-CoV-2 Antigen (Rapid) - Final 11/11/21 18:35 Nasal Secretion SARS-CoV-2 Antigen (Rapid) - Final D/C Instructions Discharge Diet: No restrictions Discharge Activity: Return to Normal Activity, May Shower and Use Walker Weight Bearing Status: Weight bearing as tolerated Call your doctor if you observe: Fever of 101 or Higher, Inability to urinate, Inability to have a bowel movement, Shortness of breath, Dizziness, Fainting spells, Swelling in the ankles, Chest pain and Uncontrolled pain Additional Instructions: Discharge to Care Home 11/26/2021, [facility] PT/OT/ST, new O2. Please Follow Up With: Roland Freedman DO When: As scheduled. Meaningful Use Info Meaningful Use Diagnoses (Choose all that apply): None applicable Discharge Plan Admission Admit Date/Time: 11/06/21 14:35 Primary Reason for Your Visit: Debility. Attending Provider: Mook Merlos Chi Primary Care Provider: Mook Merlos Chi Instructions Additional Instructions / Restrictions: Discharge to Care Home 11/26/2021, [facility] PT/OT/ST, new O2. Discharge Orders/Prescriptions Prescriptions: New polysaccharide iron complex [Ferrex 150] 150 mg iron Capsule 150 mg PO DAILY 30 Days Qty: 30 RF: 0 amlodipine 5 mg Tablet 5 mg PO QHS 30 Days Qty: 30 RF: 0 Continued famotidine 40 mg tablet 40 mg PO DAILY RF: 0 gabapentin 100 mg capsule 100 mg PO TID RF: 0 atorvastatin 40 mg tablet 40 mg PO QHS RF: 0 metformin 500 mg tablet 500 mg PO BID RF: 0 citalopram 10 mg tablet 10 mg PO QHS RF: 0 valsartan-hydrochlorothiazide 320-12.5 mg tablet 1 tab PO QHS RF: 0 cholecalciferol (vitamin D3) [Vitamin D3] 25 mcg (1,000 unit) Tablet 25 mcg PO DAILY RF: 0 Bevespi Aerosphere 9-4.8 mcg HFA aerosol inhaler 2 puff INHALATION BID RF: 0 tramadol 50 mg Tablet 50 mg PO Q6H PRN PRN (Reason: Pain Score 4-5) 7 Days Qty: 28 RF: 0 Referrals / Follow Up: Mook Merlos Chi, MD [Primary Care Provider] - Within 1 Week Disposition Disposition (needs filled in before D/C Order can be placed): Home Health Service
[2021-11-19] MEDS: Rivaroxaban 10 MG Tablet PO (17:42)
[2021-11-19] MEDS: hydroCHLOROthiazide 12.5mg 12.5 MG PO (21:13)
[2021-11-19] MEDS: amLODIPine 5 MG Tablet PO (21:13)
[2021-11-19] MEDS: Citalopram 10 MG Tablet PO (21:13)
[2021-11-19] MEDS: Losartan Potassium 100 MG Tablet PO (21:14)
[2021-11-19] MEDS: Atorvastatin Calcium 40 MG Tablet PO (21:15)
[2021-11-19 22:00] VITALS: O2SAT 96
[2021-11-20] MEDS: Gabapentin 100 MG Capsule PO ×3 (05:07→21:19)
[2021-11-20] MEDS: Nystatin Powder 15gm Bottle 1 APPLIC TOPICAL ×2 (05:07→17:45)
[2021-11-20] MEDS: Menthol/Lanolin/Calamine/Znox 113 GM Tube 1 APPLIC TOPICAL ×2 (05:08→17:44)
[2021-11-20] MEDS: Umeclidinium Brm/Vilanterol 62.5-25 mcg Inh 1 PUFF INHALATION (05:08)
[2021-11-20] MEDS: Iron Polysaccharide Complex 150 MG CAPSULE PO (05:09)
[2021-11-20] MEDS: Glucerna Shake 120 ML LIQUID PO ×4 (05:09→21:23)
[2021-11-20] MEDS: Famotidine 20 MG Tablet 40 MG PO (05:10)
[2021-11-20] MEDS: Cephalexin 500 MG Capsule PO (05:10)
[2021-11-20] MEDS: Senna/Docusate Sodium 1 Tablet PO ×2 (05:11→17:44)
[2021-11-20 06:25] LABS: Bedside Glucose 144 mg/dL (74-106)
[2021-11-20 06:59] VITALS: O2SAT 90
[2021-11-20] MEDS: Cholecalciferol (VIT D3) 25 MCG TABLET (1,000 UNITS) PO (08:40)
[2021-11-20] MEDS: metFORMIN HCl 500 MG Tablet PO ×2 (08:40→17:44)
[2021-11-20 13:46] VITALS: BP 117/61; PULSE 101; RESP 16; TEMP 36.2; O2SAT 95
[2021-11-20] MEDS: Rivaroxaban 10 MG Tablet PO (17:43)
[2021-11-20] MEDS: hydroCHLOROthiazide 12.5mg 12.5 MG PO (21:24)
[2021-11-20] MEDS: Losartan Potassium 100 MG Tablet PO (21:24)
[2021-11-20] MEDS: Citalopram 10 MG Tablet PO (21:24)
[2021-11-20] MEDS: amLODIPine 5 MG Tablet PO (21:25)
[2021-11-20] MEDS: Atorvastatin Calcium 40 MG Tablet PO (21:25)
[2021-11-20 22:14] VITALS: O2SAT 95
[2021-11-21] MEDS: Glucerna Shake 120 ML LIQUID PO ×4 (05:00→21:01)
[2021-11-21] MEDS: Nystatin Powder 15gm Bottle 1 APPLIC TOPICAL ×2 (05:00→17:36)
[2021-11-21] MEDS: Umeclidinium Brm/Vilanterol 62.5-25 mcg Inh 1 PUFF INHALATION (05:00)
[2021-11-21] MEDS: Famotidine 20 MG Tablet 40 MG PO (05:01)
[2021-11-21] MEDS: Gabapentin 100 MG Capsule PO ×3 (05:01→21:00)
[2021-11-21] MEDS: Iron Polysaccharide Complex 150 MG CAPSULE PO (05:02)
[2021-11-21] MEDS: Senna/Docusate Sodium 1 Tablet PO ×2 (05:03→17:36)
[2021-11-21] MEDS: Menthol/Lanolin/Calamine/Znox 113 GM Tube 1 APPLIC TOPICAL ×2 (05:08→17:36)
[2021-11-21 06:31] LABS: Bedside Glucose 134 mg/dL (74-106)
[2021-11-21 07:14] VITALS: O2SAT 93
[2021-11-21 07:38] LABS: Absolute Neutrophil Count 7.2 X10^3/uL (2.0-7.7); Basophil# 0.04 X10^3/uL; Basophil% 0.4 % (0-1); Eosinophil# 0.48 X10^3/uL; Eosinophils% 4.5 % (0-5); Hematocrit 38.6 % (37-47); Hemoglobin 13.1 g/dL (12.0-15.0); Mean Corp Hgb Conc 33.9 g/dL (32-36); Mean Corpuscular Hgb 32.2 pg (27.0-32.0); Mean Corpuscular Volume 94.8 fL (81-99); Mean Platelet Vol. 10.3 fl (6.2-12.0); Monocyte# 0.95 X10^3/uL; NRBC Flagged by Analyzer 0 % (0-5); Neutrophil # 7.23 X10^3/uL (2.7-7.7); Neutrophil % 68.3 % (47-70); Platelet Count 269 K/mm3 (150-450); RBC Distribution Width CV 12.7 % (11.6-14.6); RBC Distribution Width SD 43.4 fl (35.1-43.9); Red Blood Count 4.07 M/mm3 (4.2-5.4); White Blood Count 10.6 K/mm3 (4.4-11.0)
[2021-11-21 07:57] LABS: Anion Gap 7 (5-15); BUN 23 mg/dL (7-18); BUN/Creat Ratio 21.1 RATIO (10-20); Calcium,Total 9.7 mg/dL (8.5-10.1); Chloride 97 mmol/L (98-107); Creatinine, Serum 1.09 mg/dL (0.55-1.02); EST Glomerular Filtration Rate 52 mL/min (>60); Est Glom Filt Rate - Afr Amer 63 mL/min (>60); Estimated Creatinine Clearance 32.03 ml/min; Glucose 143 mg/dL (74-106); Potassium 3.9 mmol/L (3.5-5.1); Sodium Level 134 mmol/L (136-145)
[2021-11-21] MEDS: Cholecalciferol (VIT D3) 25 MCG TABLET (1,000 UNITS) PO (09:01)
[2021-11-21] MEDS: metFORMIN HCl 500 MG Tablet PO ×2 (09:01→17:36)
[2021-11-21 09:08] VITALS: PULSE 96; RESP 16; O2SAT 91
[2021-11-21 13:51] VITALS: BP 132/75; PULSE 88; RESP 16; TEMP 36.2; O2SAT 97
[2021-11-21] MEDS: Rivaroxaban 10 MG Tablet PO (17:36)
[2021-11-21] MEDS: Citalopram 10 MG Tablet PO (21:00)
[2021-11-21] MEDS: hydroCHLOROthiazide 12.5mg 12.5 MG PO (21:00)
[2021-11-21] MEDS: Atorvastatin Calcium 40 MG Tablet PO (21:00)
[2021-11-21] MEDS: amLODIPine 5 MG Tablet PO (21:01)
[2021-11-21] MEDS: Losartan Potassium 100 MG Tablet PO (21:01)
[2021-11-22] MEDS: Umeclidinium Brm/Vilanterol 62.5-25 mcg Inh 1 PUFF INHALATION (05:05)
[2021-11-22] MEDS: Iron Polysaccharide Complex 150 MG CAPSULE PO (05:05)
[2021-11-22] MEDS: Gabapentin 100 MG Capsule PO ×3 (05:05→21:27)
[2021-11-22] MEDS: Famotidine 20 MG Tablet 40 MG PO (05:06)
[2021-11-22] MEDS: Senna/Docusate Sodium 1 Tablet PO ×2 (05:06→17:39)
[2021-11-22] MEDS: Menthol/Lanolin/Calamine/Znox 113 GM Tube 1 APPLIC TOPICAL ×2 (05:07→17:38)
[2021-11-22] MEDS: Nystatin Powder 15gm Bottle 1 APPLIC TOPICAL ×2 (05:07→21:27)
[2021-11-22] MEDS: Glucerna Shake 120 ML LIQUID PO ×4 (05:11→21:26)
[2021-11-22 06:31] LABS: Bedside Glucose 151 mg/dL (74-106)
[2021-11-22] MEDS: metFORMIN HCl 500 MG Tablet PO ×2 (08:02→17:39)
[2021-11-22] MEDS: Cholecalciferol (VIT D3) 25 MCG TABLET (1,000 UNITS) PO (08:03)
--- NOTE | 2021-11-22 09:00 | CASEMGMT ---
Social Work Received information from LOW EMISSION AUTOMOBILE DESIGNER Diesel Service Apprentice on appt changes day of DC. Left message with Toshia updating her pt has Dr. Merlos PCP appt at 9 am, then an ENT appt at 12:30-2 pm and requesting transport from [facility] pick her up from ENT appt when finished for DC. Maritza Galvez ,BREAD PACKER GEAR REPAIRER
[2021-11-22 09:40] VITALS: PULSE 84; RESP 20; TEMP 35.6; O2SAT 95
[2021-11-22 10:20] VITALS: BP 141/78; PULSE 84; RESP 18; TEMP 36.3; O2SAT 97
--- NOTE | 2021-11-22 10:21 | NURSING ---
THIS NURSE OUT SIDE PT ROOM AND THERAPY WITH PT AT SINK. WHILE STANDING PT LOST HER BALANCE AND LEANED INTO SINK AND MIRROR. THERAPY AND THIS NURSE HELPED PT BACK IN RECLINER. PT DENIED ANY OTHER PROBLEMS. VITALS DONE. PT IS ORTHOSTATIC POSITIVE. RN AWARE
[2021-11-22 12:55] VITALS: BP 138/77
[2021-11-22 20:00] VITALS: O2SAT 93
[2021-11-22] MEDS: hydroCHLOROthiazide 12.5mg 12.5 MG PO (21:24)
[2021-11-22] MEDS: Citalopram 10 MG Tablet PO (21:24)
[2021-11-22] MEDS: Atorvastatin Calcium 40 MG Tablet PO (21:24)
[2021-11-22] MEDS: amLODIPine 5 MG Tablet PO (21:24)
[2021-11-22] MEDS: Losartan Potassium 100 MG Tablet PO (21:24)
[2021-11-23] MEDS: Umeclidinium Brm/Vilanterol 62.5-25 mcg Inh 1 PUFF INHALATION (05:43)
[2021-11-23] MEDS: Famotidine 20 MG Tablet 40 MG PO (05:44)
[2021-11-23] MEDS: Iron Polysaccharide Complex 150 MG CAPSULE PO (05:44)
[2021-11-23] MEDS: Menthol/Lanolin/Calamine/Znox 113 GM Tube 1 APPLIC TOPICAL ×2 (05:44→16:35)
[2021-11-23] MEDS: Nystatin Powder 15gm Bottle 1 APPLIC TOPICAL ×2 (05:44→16:35)
[2021-11-23] MEDS: Senna/Docusate Sodium 1 Tablet PO ×2 (05:45→16:35)
[2021-11-23] MEDS: Glucerna Shake 120 ML LIQUID PO ×4 (05:47→20:39)
[2021-11-23] MEDS: Gabapentin 100 MG Capsule PO ×3 (05:47→20:41)
[2021-11-23 06:25] LABS: Bedside Glucose 115 mg/dL (74-106)
[2021-11-23] MEDS: Cholecalciferol (VIT D3) 25 MCG TABLET (1,000 UNITS) PO (08:15)
[2021-11-23] MEDS: metFORMIN HCl 500 MG Tablet PO ×2 (08:15→16:35)
[2021-11-23] MEDS: traMADol 50 MG Tablet PO (08:17)
[2021-11-23 13:31] VITALS: BP 126/69; PULSE 79; RESP 15; TEMP 35.9; O2SAT 94
[2021-11-23] MEDS: Citalopram 10 MG Tablet PO (20:39)
[2021-11-23] MEDS: Losartan Potassium 100 MG Tablet PO (20:39)
[2021-11-23] MEDS: Atorvastatin Calcium 40 MG Tablet PO (20:39)
[2021-11-23] MEDS: amLODIPine 5 MG Tablet PO (20:39)
[2021-11-23] MEDS: hydroCHLOROthiazide 12.5mg 12.5 MG PO (20:39)
[2021-11-24] MEDS: Umeclidinium Brm/Vilanterol 62.5-25 mcg Inh 1 PUFF INHALATION (05:20)
[2021-11-24] MEDS: Glucerna Shake 120 ML LIQUID PO ×4 (05:20→21:54)
[2021-11-24] MEDS: Iron Polysaccharide Complex 150 MG CAPSULE PO (05:21)
[2021-11-24] MEDS: Acetaminophen 500 MG Tablet 1000 MG PO (05:21)
[2021-11-24] MEDS: Senna/Docusate Sodium 1 Tablet PO ×2 (05:21→17:27)
[2021-11-24] MEDS: Famotidine 20 MG Tablet 40 MG PO (05:21)
[2021-11-24] MEDS: Gabapentin 100 MG Capsule PO ×3 (05:21→21:56)
[2021-11-24] MEDS: Menthol/Lanolin/Calamine/Znox 113 GM Tube 1 APPLIC TOPICAL ×2 (05:22→17:24)
[2021-11-24] MEDS: Nystatin Powder 15gm Bottle 1 APPLIC TOPICAL ×2 (05:22→21:46)
[2021-11-24 06:21] LABS: Bedside Glucose 138 mg/dL (74-106)
[2021-11-24] MEDS: metFORMIN HCl 500 MG Tablet PO ×2 (07:45→17:27)
[2021-11-24] MEDS: Cholecalciferol (VIT D3) 25 MCG TABLET (1,000 UNITS) PO (07:45)
[2021-11-24 10:25] VITALS: RESP 20; TEMP 35.5
[2021-11-24 10:53] VITALS: PULSE 78; O2SAT 96
--- NOTE | 2021-11-24 11:31 | CASEMGMT ---
Addendum entered by Maritza Galvez 11/24/21 15:23: Cancelled appt with Dr. Merlos. Addendum entered by Maritza Galvez 11/24/21 15:20: [place] can accept pt. Updated Toshia. Scheduled w/c transport through [facility] for p/u at 11:30 am to take to ENT appt at 12:30 pm, then [facility] will transport to [place]. [facility] aware. PASRR completed - triggered for Level II. Will await outcome before discharging. Updated IDT on change in DC plans. [place] [facility] [place] [facility] to cancel referrals. Plan: DC to [facility] 11/26, skilled Original Note: Social Work Received call from Toshia, [facility] Director, expressing concern with pt's loss of balances, MBS 11/25, ENT appt 11/26, and needing additional care that [facility] can provide at this time. Inquiring about SNF stay until pt can return. SW agreed. Toshia requested referral to [facility]. Referral made. Will await outcome. KALEB MakiW
--- NOTE | 2021-11-24 11:36 | NURSING ---
PT TO HAVE BARRUM SWALLOW TEST 11/25/21 AT 9:30AM.
[2021-11-24 11:59] VITALS: BP 108/66
--- NOTE | 2021-11-24 17:25 | TREXTCAR_ITS ---
Diet 11/24/21 14:46 Diet: Regular - General Is pt able to select menu?: No Diet Comments: chocolate magic cup w/ lunch and dinner Routine Orders/Code Status Code Status: Full Code Wound(s) RT LOWER BACK: Wound Type: Abrasion INSIDE ARISTEO EARS: Wound Type: Abrasion FOREHEAD: Wound Type: Abrasion LEFT NECK: Wound Type: Surgical Incision Dressing Change: surgical glue UPPER CHEST: Wound Type: Abrasion RT UPPER ARM: Wound Type: Abrasion LT DELT: Wound Type: Abrasion BOTTOM FOOT UNDER GREAT TOE: Wound Type: CALLOUS RT LATERAL FOOT: Wound Type: Abrasion ARISTEO ANKLES: Wound Type: Abrasion POST ANKLE: Wound Type: Abrasion cleft: Wound Type: moisture associated skin damage Dressing Change: yoseph Therapies Weight Bearing: Weight bearing as tolerated Extremity Affected:: Bilateral Lower Physical Therapy: Eval and Treat Occupational Therapy: Eval and Treat Speech Therapy: Eval and Treat Problem/Diagnosis (1) Debility: Status: Acute (2) Cervical spinal cord compression: Status: Resolved (3) Hyperlipidemia: Status: Acute (4) Depression: Status: Acute (5) Diabetes mellitus: Status: Acute (6) Gastroesophageal reflux disease: Status: Acute (7) Diabetic polyneuropathy: Status: Acute (8) Chronic obstructive pulmonary disease: Status: Chronic (9) Hypertension: Status: Chronic Allergies/Procedures Done in Hospital Allergies amitriptyline Allergy (Verified 11/03/21 17:43) Rash Penicillins Allergy (Verified 11/03/21 17:43) Hives codeine Adverse Reaction (Intermediate, Verified 11/03/21 17:43) Other sneezing Procedures: None Type of Care/Length of Stay Estimated LOS: Convalescent Care Less Than 30 days Type of Care Needed: Skilled Rehab Potential: Good Prognosis: Good Additional Orders/Day of Discharge Day of Discharge: 11/26/21 Dietary and Speech Recommendations Dietitian Recommendations/Changes: Will liberalize diet to regular d/t signs/symptoms of malnutrition Will provide chocolate magic cup w/ lunch and dinner Will provide fortified foods for increased nutrition if consumed. Will continue to provide 4 oz chocolate glucerna shake 4x/day w/ medpass for increased nutrition if consumed. Follow Up Care Please Follow Up With: Roland Freedman DO When: 11/30/21 Discharge Plan Admission Admit Date/Time: 11/06/21 14:35 Primary Reason for Your Visit: Debility. Attending Provider: Mook Merlos Chi Primary Care Provider: Mook Merlos Chi Instructions Additional Instructions / Restrictions: Discharge to [facility] 11/26/2021, [facility] PT/OT/ST, new O2. Discharge Orders/Prescriptions Prescriptions: New polysaccharide iron complex [Ferrex 150] 150 mg iron Capsule 150 mg PO DAILY 30 Days Qty: 30 RF: 0 amlodipine 5 mg Tablet 5 mg PO QHS 30 Days Qty: 30 RF: 0 Continued famotidine 40 mg tablet 40 mg PO DAILY RF: 0 gabapentin 100 mg capsule 100 mg PO TID RF: 0 atorvastatin 40 mg tablet 40 mg PO QHS RF: 0 metformin 500 mg tablet 500 mg PO BID RF: 0 citalopram 10 mg tablet 10 mg PO QHS RF: 0 valsartan-hydrochlorothiazide 320-12.5 mg tablet 1 tab PO QHS RF: 0 cholecalciferol (vitamin D3) [Vitamin D3] 25 mcg (1,000 unit) Tablet 25 mcg PO DAILY RF: 0 Bevespi Aerosphere 9-4.8 mcg HFA aerosol inhaler 2 puff INHALATION BID RF: 0 tramadol 50 mg Tablet 50 mg PO Q6H PRN PRN (Reason: Pain Score 4-5) 7 Days Qty: 28 RF: 0 Referrals / Follow Up: Karlos Greenwood MD [STAFF PHYSICIAN] - 11/26/21 12:30 pm Mook Merlos Chi, MD [Primary Care Provider] - In 1 Week Disposition Disposition (needs filled in before D/C Order can be placed): Assisted Facility
[2021-11-24 21:11] VITALS: RESP 16; O2SAT 92
[2021-11-24] MEDS: Losartan Potassium 100 MG Tablet PO (21:54)
[2021-11-24] MEDS: Citalopram 10 MG Tablet PO (21:54)
[2021-11-24] MEDS: Atorvastatin Calcium 40 MG Tablet PO (21:55)
[2021-11-24] MEDS: hydroCHLOROthiazide 12.5mg 12.5 MG PO (21:55)
[2021-11-24] MEDS: amLODIPine 5 MG Tablet PO (21:56)
[2021-11-25 06:00] VITALS: BP 118/69; PULSE 56; RESP 16; TEMP 36.3; O2SAT 94
[2021-11-25] MEDS: Menthol/Lanolin/Calamine/Znox 113 GM Tube 1 APPLIC TOPICAL ×2 (06:11→17:14)
[2021-11-25] MEDS: Umeclidinium Brm/Vilanterol 62.5-25 mcg Inh 1 PUFF INHALATION (06:11)
[2021-11-25] MEDS: Iron Polysaccharide Complex 150 MG CAPSULE PO (06:11)
[2021-11-25] MEDS: Nystatin Powder 15gm Bottle 1 APPLIC TOPICAL ×2 (06:12→17:15)
[2021-11-25] MEDS: Glucerna Shake 120 ML LIQUID PO ×4 (06:12→20:57)
[2021-11-25] MEDS: Gabapentin 100 MG Capsule PO ×3 (06:12→20:58)
[2021-11-25] MEDS: Famotidine 20 MG Tablet 40 MG PO (06:13)
[2021-11-25] MEDS: Senna/Docusate Sodium 1 Tablet PO ×2 (06:13→17:14)
[2021-11-25 06:26] LABS: Bedside Glucose 131 mg/dL (74-106)
[2021-11-25] MEDS: Cholecalciferol (VIT D3) 25 MCG TABLET (1,000 UNITS) PO (08:05)
[2021-11-25] MEDS: metFORMIN HCl 500 MG Tablet PO ×2 (08:05→17:14)
--- NOTE | 2021-11-25 10:21 | ST.MBS ---
Modified Barium Swallow - Patient Information Study Date: 11/25/21 Study Time: 09:30 Direct Billable Minutes: 105 Total Minutes procedure & reportin Diagnosis: COPD (J44.9), GERD (K21.9) Referring Physician: Mook Merlos Chi Reason for Referral: Objectively assess swallow function, risk for aspiration, and determine recommendations for least restrictive diet textures and compensatory strategies to improve safety of swallow. Medical History: The patient is a 76-year-old female with PMH including arthritis, atherosclerosis, back problem, chronic bronchitis, diabetes, disorder of bone and cartilage, HTN, macular degeneration, mixed HLD, stroke, TIA (SEE EMR for full PMH). The patient presented to [facility] ED 11/03/2021 for evaluation of left-sided weakness that onset April 2021. She was consulted by spinal surgery and recommended for surgery for C3-C4 disc rupture. Pt underwent spinal surgery, including C3-4 anterior cervical discectomy, osteophytectomy, decompression of the spinal cord and C3-4 anterior cervical fusion (SEE chart for surgery notes and full details). 11/05/2021 patient presenting with dysphagia and dysphonia. 11/06/2021 she was admitted to [facility] TCU for OT, PT, and ST services. She had been participating in speech therapy for to manage dysphagia and dysphonia. She has been participating in voice therapy for vocal hygiene education, gentle voice adduction exercise, and resonance training. The patient's voice is aphonic. In dysphagia treatment, she had advanced from Soft and bite size textures / Thin liquids to Regular textures / Thin liquids with occasional coughing observed with Thin liquids. She was referred for MBS study to objectively assess aspiration risk and determine LRD texture recommendations. Current Diet Ordered: Regular textures / Thin liquids Mental Status: Impaired - Developmental delay - Respiratory Status: Oxygenating on Room Air - Penetration-Aspiration Scale Penetration-Aspiration Scale: OBJECTIVE ASSESSMENT OF SWALLOW FUNCTION (QUANTITATIVE ? PER TRIAL): PENETRATION / ASPIRATION SCALE (VAZQUEZ): 1 = does not enter airway 2 = enters airway/above vocal folds/ejected 3 = enters airway/above vocal folds/not ejected 4 = enters airway/contacts vocal folds/ejected 5 = enters airway/contacts vocal folds/not ejected 6 = enters airway/below vocal folds/ejected 7 = enters airway/below vocal folds/not ejected despite effort 8 = enters airway/below vocal folds/no effort VIDEOFLOROSCOPIC SCALE SCORE (VAZQUEZ): Grade I = aspiration of material that has penetrated into the laryngeal vestibule, intact cough reflex Grade II = aspiration < 10 % of the bolus, intact cough reflex Grade III = aspiration of < 10 % of the bolus, reduced cough reflex or aspiration of > 10 % of the bolus, intact cough reflex Grade IV = aspiration of > 10 % of the bolus, reduced cough reflex - Penetration-Aspiration Scale Score Thin Liquid via teaspoon Result: 2= enter airway/above vocal folds/ejected Thin Liquid via teaspoon Trial 2 Result: 2= enter airway/above vocal folds/ejected Thin Liquid via small single sip from cup Result: 8= enters airway/below vocal folds/no effort Thin Liquid via small single sip from cup Effortful swallow Result: 2= enter airway/above vocal folds/ejected Thin Liquid via sequential sips from cup Result: 2= enter airway/above vocal folds/ejected [place] Thick Liquid via small single sip from cup Result: 1= does not enter airway Honey Thick Liquid via small single sip from cup Result: 1= does not enter airway Comment: delayed coughing - no contrast present in laryngeal vestibule Pudding via teaspoon with esophageal screen Result: 1= does not enter airway 1/2 Cookie Result: 1= does not enter airway Thin Liquid via single sip from straw Result: 1= does not enter airway Thin Liquid via sequential sips from straw Result: 8= enters airway/below vocal folds/no effort Thin Liquid via single sip from straw Trial 2 Result: 1= does not enter airway Thin Liquid via single sip from straw Trial 3 Result: 5= enters airways/contacts vocal folds/not ejected Thin Liquid via small single sip from cup Effortful swallow Trial 2 Result: 7= enters airways/below vocal folds/not ejected despite effort [place] Thick Liquid via small single sip from cup Trial 2 Result: 8= enters airway/below vocal folds/no effort Honey Thick Liquid via small single sip from cup Trial 2 Result: 1= does not enter airway Honey Thick Liquid via small single sip from cup Trial 3 Result: 1= does not enter airway Thin Liquid via teaspoon Trial 3 Result: 2= enter airway/above vocal folds/ejected Thin Liquid via teaspoon Trial 4 Result: 5= enters airways/contacts vocal folds/not ejected - Oral Phase Labial Seal: No Labial Escape Tongue Control During Bolus Hold: Posterior escape of less than half of bolus Bolus Preparation/Mastication: Disorganized chewing/mashing with solid pieces of bolus unchewed Bolus Transport/Lingual Motion: Delayed initiation of tongue motion Oral Residue: Trace residue lining oral structures - Pharyngeal Phase Initiation of Pharyngeal Swallow: Bolus head in pyriforms Soft Palate Elevation: No bolus between soft palate and pharyngeal wall Laryngeal Elevation: Partial superior movement thyroid cart/partial apprx aryt-epig petiole Anterior Hyoid Excursion: Partial anterior movement Epiglottic Movement: Partial inversion Laryngeal Vestibule Closure at Height of Swallow: Incomplete; narrow column of air/contrast in laryngeal vestibule Pharyngeal Stripping Wave: Present - complete Pharyngoesophageal Segment Opening: Parital distension and partial duration; parital obstruction of flow Tongue Base Retraction: Narrow column of contrast between tongue base & post. pharyngeal wall Pharyngeal Residue: Trace residue within or on pharyngeal structures - Esophageal Phase Esophageal Clearance: Esophageal retention w/ retrograde flow through pharyngoesophageal seg - Treatment Strategies Effects of treatment strategies attemped:: Effortful swallow = not effective. Unable to trial chin tuck due to recent cervical fusion. - Diagnosis/Impression Diagnosis: Moderate oropharyngeal phase dysphagia (R13.12) Impression: The oral phase is primarily marked by decreased mastication and decreased bolus control. The patient appeared to have pieces of regular textured cookie unchewed. She also presents with decreased bolus control with posterior loss of certain liquid trials to the pyriforms prior to swallow onset. On one trial of thin sip via cup with effortful swallow, she presented with posterior loss of bolus to the laryngeal vestibule and airway with aspiration before the swallow - weak, ineffective cough reflex. The pharyngeal phase of the swallow is primarily marked by decreased airway closure during the swallow and delayed swallow onset. The patient has mildly decreased anterior hyoid excursion and laryngeal elevation with decreased epiglottic inversion and UES opening. The patient presented with SILENT aspiration of single sip of thin liquids by cup, sequential sip of thin liquids by straw, and single sip of nectar thick liquids by cup during the swallow. She elicited a weak cough reflex in response to aspiration before the swallow with sips of thin liquids by cup with effortful swallow. SEE PAS scores above for full details regarding laryngeal penetration and aspiration. The patient appears to have edema on posterior esophageal wall at the level of C4, which partially obstructed honey thick liquids with resulting esophageal retention and retrograde flow through UES. Pudding via tsp resulted in mild retention in upper and mid esophagus. - Recommendations Diet: Regular Textures - Easy to Chew (IDDSI Level 7) Textures, Honey-thick Liquids Comment: Davies Free Water Protocol Compensatory Strategies: Small Bites, Small Sips, Slow Rate, Sitting upright, Remain sitting upright for 30 minutes after PO intake Supervision: Distant Supervision Recommend Repeat Modified Barium Swallow: Yes Comment: 4-6 weeks after implementation of oropharyngeal strengthening program. Need for Skilled Speech Therapy Services: Yes Comment: Will recommend the patient for continued dysphagia therapy to address deficits in oropharyngeal swallow function. Would consider the patient for oropharyngeal strengthening to improve laryngeal elevation, hyoid excursion, and duration of UES opening. The patient would benefit from thorough education regarding diet recommendations and recommended compensatory strategies. Will strongly recommend implementation of Davies Free Water Protocol (FFWP) to encourage hydration and promote increased opportunities for swallowing throughout the patient?s day. Would not advance liquids prior to repeat MBS study due to silent nature of aspiration. Would additionally recommend continued voice therapy to train vocal hygiene, gentle vocal adduction, breath support, and resonance training. Recommended Referrals: ENT Consult - Pt is aphonic. Reduced cough reflex and SILENT aspiration of thin and nectar thickened liquids. Will recommend ENT consult to evaluate pathology of vocal cord dysfunction. Education Completed: 1. Described result of evaluation., 2. Pt understands evaluation & agrees with goals and treatment plan., 7. Pt requires further education on strategies & risks. - Status Active ST Patient: Active - Contact Information [facility] Speech Therapy:: Keke Kent M.A. [facility] GRINDER SET UP OPERATOR Speech-Language Pathologist [facility] [address] [place] [address] [email or web address] [phone] 11/25/21 10:32
--- NOTE | 2021-11-25 10:26 | NURSING ---
Speech therapy updated this nurse that pt failed her swallow study and has been down graded to honey thick liquid and easy to chew diet.
--- NOTE | 2021-11-25 10:28 | NURSING ---
Pt left floor this morning for 929 barium swallow study and returned to floor approx 1015
[2021-11-25 10:43] VITALS: PULSE 86; RESP 20; TEMP 35.7; O2SAT 93
--- NOTE | 2021-11-25 12:58 | CASEMGMT ---
Social Work BIMS and PHQ-9 completed for MDS assessment. Maritza Galvez, ENTERPRISE ANALYST GLASS LAMINATING OPERATOR
[2021-11-25 14:54] VITALS: BP 128/72
[2021-11-25] MEDS: Citalopram 10 MG Tablet PO (20:58)
[2021-11-25] MEDS: Losartan Potassium 100 MG Tablet PO (20:58)
[2021-11-25] MEDS: amLODIPine 5 MG Tablet PO (20:58)
[2021-11-25] MEDS: hydroCHLOROthiazide 12.5mg 12.5 MG PO (20:58)
[2021-11-25] MEDS: Atorvastatin Calcium 40 MG Tablet PO (20:58)
[2021-11-26] MEDS: Menthol/Lanolin/Calamine/Znox 113 GM Tube 1 APPLIC TOPICAL ×2 (05:34→18:23)
[2021-11-26] MEDS: Umeclidinium Brm/Vilanterol 62.5-25 mcg Inh 1 PUFF INHALATION (05:34)
[2021-11-26] MEDS: Nystatin Powder 15gm Bottle 1 APPLIC TOPICAL ×2 (05:35→18:23)
[2021-11-26] MEDS: Gabapentin 100 MG Capsule PO ×3 (05:35→21:23)
[2021-11-26] MEDS: Senna/Docusate Sodium 1 Tablet PO ×2 (05:35→18:23)
[2021-11-26] MEDS: Iron Polysaccharide Complex 150 MG CAPSULE PO (05:35)
[2021-11-26] MEDS: Famotidine 20 MG Tablet 40 MG PO (05:35)
[2021-11-26] MEDS: Glucerna Shake 120 ML LIQUID PO ×3 (05:36→21:23)
[2021-11-26] MEDS: Acetaminophen 500 MG Tablet 1000 MG PO (05:38)
[2021-11-26 05:48] VITALS: BP 122/7; PULSE 84; RESP 16; TEMP 36.6; O2SAT 92
[2021-11-26 06:30] LABS: Bedside Glucose 160 mg/dL (74-106)
[2021-11-26] MEDS: metFORMIN HCl 500 MG Tablet PO ×2 (08:45→18:22)
[2021-11-26] MEDS: Cholecalciferol (VIT D3) 25 MCG TABLET (1,000 UNITS) PO (08:45)
[2021-11-26 10:01] VITALS: BP 102/69; PULSE 84; RESP 16; TEMP 36.6; O2SAT 94
--- NOTE | 2021-11-26 11:53 | CASEMGMT ---
Social Work Have not received results from Level II PASRR. Left messages with two phone numbers for [facility]. Spoke with Toshia from [facility] and Tiffanie at [facility] to update that if results are not received by the time pt is done with ENT appt, pt will need to return to TCU. Staff is updated as well. SW to continue to follow. Maritza Galvez ,PHILOSOPHY FACULTY AUTOMATIC TELLER MACHINE SERVICER
[2021-11-26 14:00] VITALS: BP 124/70; PULSE 88; RESP 18; TEMP 36.3; O2SAT 96
--- NOTE | 2021-11-26 14:07 | CASEMGMT ---
Social Work Level II determination continues to be pending. Telephone call to [facility], this social science instructor instructed [facility] to have patient brought back to the TCU as patient is unable to transition to [facility] until determination is obtained. Telephone call to [facility]. Jessica updated on above. [facility] Voicemail left. Medical team updated. PLAN: [facility], pending Level II determination. Will continue to follow. Irineo MANUEL, KEISHA
--- NOTE | 2021-11-26 15:28 | NURSING ---
Pt had ENT appointment today left floor at approx 12pm and returned around 3pm. Pt is scheduled to have surgery on monday11/30/21 for left vocal cord injection with Dr. Greenwood. N.O. Pt to be NPO after midnight and should only take pepcid, gabapentin and ellipta inhaler morning of surgery. Do not give meds in applesauce but ok to mix with a little bit of thickened water.
--- NOTE | 2021-11-26 17:39 | CASEMGMT ---
Social Work This social work administrator checked HENS system, PAS still pending Level II determination. Discharge canceled for today as unable to discharge due to not having Level II determination. Medical team updated. Will continue to follow. Irineo MANUEL, KEISHA
[2021-11-26] MEDS: hydroCHLOROthiazide 12.5mg 12.5 MG PO (21:24)
[2021-11-26] MEDS: Losartan Potassium 100 MG Tablet PO (21:24)
[2021-11-26] MEDS: Citalopram 10 MG Tablet PO (21:24)
[2021-11-26] MEDS: amLODIPine 5 MG Tablet PO (21:25)
[2021-11-26] MEDS: Atorvastatin Calcium 40 MG Tablet PO (21:25)
[2021-11-27] MEDS: Menthol/Lanolin/Calamine/Znox 113 GM Tube 1 APPLIC TOPICAL ×2 (05:35→16:47)
[2021-11-27] MEDS: Iron Polysaccharide Complex 150 MG CAPSULE PO (05:36)
[2021-11-27] MEDS: Glucerna Shake 120 ML LIQUID PO ×3 (05:36→20:50)
[2021-11-27] MEDS: Nystatin Powder 15gm Bottle 1 APPLIC TOPICAL ×2 (05:37→20:50)
[2021-11-27] MEDS: Famotidine 20 MG Tablet 40 MG PO (05:37)
[2021-11-27] MEDS: Gabapentin 100 MG Capsule PO ×3 (05:41→20:55)
[2021-11-27 06:20] LABS: Bedside Glucose 149 mg/dL (74-106)
[2021-11-27 07:35] VITALS: BP 105/69; PULSE 70; RESP 16; TEMP 35.8; O2SAT 98
[2021-11-27] MEDS: Cholecalciferol (VIT D3) 25 MCG TABLET (1,000 UNITS) PO (08:40)
[2021-11-27] MEDS: metFORMIN HCl 500 MG Tablet PO ×2 (08:40→16:48)
[2021-11-27] MEDS: Umeclidinium Brm/Vilanterol 62.5-25 mcg Inh 1 PUFF INHALATION (08:42)
[2021-11-27 09:45] VITALS: PULSE 82; RESP 18; O2SAT 93
[2021-11-27 16:43] VITALS: BP 134/92; PULSE 91; RESP 18; TEMP 36.8; O2SAT 94
[2021-11-27] MEDS: Senna/Docusate Sodium 1 Tablet PO (16:48)
[2021-11-27] MEDS: Citalopram 10 MG Tablet PO (20:50)
[2021-11-27] MEDS: hydroCHLOROthiazide 12.5mg 12.5 MG PO (20:51)
[2021-11-27] MEDS: Losartan Potassium 100 MG Tablet PO (20:51)
[2021-11-27] MEDS: Atorvastatin Calcium 40 MG Tablet PO (20:51)
[2021-11-27] MEDS: amLODIPine 5 MG Tablet PO (20:52)
[2021-11-28] MEDS: Umeclidinium Brm/Vilanterol 62.5-25 mcg Inh 1 PUFF INHALATION (05:13)
[2021-11-28] MEDS: Iron Polysaccharide Complex 150 MG CAPSULE PO (05:13)
[2021-11-28] MEDS: Senna/Docusate Sodium 1 Tablet PO (05:13)
[2021-11-28] MEDS: Gabapentin 100 MG Capsule PO ×3 (05:13→21:04)
[2021-11-28] MEDS: Glucerna Shake 120 ML LIQUID PO ×3 (05:13→20:58)
[2021-11-28] MEDS: Menthol/Lanolin/Calamine/Znox 113 GM Tube 1 APPLIC TOPICAL ×2 (05:13→17:55)
[2021-11-28] MEDS: Famotidine 20 MG Tablet 40 MG PO (05:13)
[2021-11-28] MEDS: Nystatin Powder 15gm Bottle 1 APPLIC TOPICAL ×2 (05:14→21:04)
[2021-11-28 06:31] LABS: Bedside Glucose 135 mg/dL (74-106)
[2021-11-28] MEDS: metFORMIN HCl 500 MG Tablet PO ×2 (08:29→17:56)
[2021-11-28] MEDS: Cholecalciferol (VIT D3) 25 MCG TABLET (1,000 UNITS) PO (08:30)
[2021-11-28 13:29] VITALS: PULSE 84; RESP 20; O2SAT 96
[2021-11-28 14:55] VITALS: BP 126/78; TEMP 36.6
[2021-11-28 19:55] VITALS: O2SAT 95
[2021-11-28] MEDS: Citalopram 10 MG Tablet PO (20:58)
[2021-11-28] MEDS: hydroCHLOROthiazide 12.5mg 12.5 MG PO (20:59)
[2021-11-28] MEDS: Atorvastatin Calcium 40 MG Tablet PO (20:59)
[2021-11-28] MEDS: Losartan Potassium 100 MG Tablet PO (20:59)
[2021-11-28] MEDS: amLODIPine 5 MG Tablet PO (20:59)
[2021-11-29] MEDS: Nystatin Powder 15gm Bottle 1 APPLIC TOPICAL ×2 (06:03→17:51)
[2021-11-29] MEDS: Senna/Docusate Sodium 1 Tablet PO ×2 (06:04→17:50)
[2021-11-29] MEDS: Famotidine 20 MG Tablet 40 MG PO (06:04)
[2021-11-29] MEDS: Iron Polysaccharide Complex 150 MG CAPSULE PO (06:04)
[2021-11-29] MEDS: Menthol/Lanolin/Calamine/Znox 113 GM Tube 1 APPLIC TOPICAL ×2 (06:04→17:51)
[2021-11-29] MEDS: Umeclidinium Brm/Vilanterol 62.5-25 mcg Inh 1 PUFF INHALATION (06:04)
[2021-11-29] MEDS: Gabapentin 100 MG Capsule PO ×3 (06:09→21:08)
[2021-11-29] MEDS: Glucerna Shake 120 ML LIQUID PO ×4 (06:09→21:04)
[2021-11-29 06:30] LABS: Bedside Glucose 149 mg/dL (74-106)
[2021-11-29] MEDS: metFORMIN HCl 500 MG Tablet PO ×2 (09:18→17:50)
[2021-11-29] MEDS: Cholecalciferol (VIT D3) 25 MCG TABLET (1,000 UNITS) PO (09:19)
--- NOTE | 2021-11-29 10:50 | CASEMGMT ---
Social Work This social media marketer checking HENS for Level II results, results are still pending. Will continue to follow. Irineo Armendariz MSW, BITA-S
--- NOTE | 2021-11-29 11:45 | NURSING ---
Dottie from preadmission testing called and spoke with this nurse to verify that pt is still on unit and has not yet discharged. Orders clarified, pt is still supposed to receive pepcid, gabapentin and ellipta inhaler only tomorrow morning. Dottie also stated that pt is to have a chlorhexadine wash tonight and again in the morning. She stated if pt does discharge today to call [phone] if its before 4pm and to call [phone] if it is after 4 for update. Dottie also stated that Dr. Greenwood ordered EKG and labs and would fax this nurse the orders.
--- NOTE | 2021-11-29 12:03 | EKG12_ITS ---
Test Reason : PREOP Blood Pressure : / mmHG Vent. Rate : 096 BPM Atrial Rate : 096 BPM P-R Int : 158 ms QRS Dur : 072 ms QT Int : 378 ms P-R-T Axes : 055 -15 063 degrees QTc Int : 477 ms Normal sinus rhythm Anteroseptal infarct (cited on or before 11-NOV-2021) Abnormal ECG When compared with ECG of 11-NOV-2021 05:50, Questionable change in initial forces of Anterior leads Confirmed by SHANNON DEUTSCH MD ([id number]), news editor MARCELA HANNA ([id number]) on 12/03/2021 9:22:08 AM Referred By: Karlos Greenwood Confirmed By:SHANNON DEUTSCH MD
[2021-11-29 14:00] VITALS: BP 151/72; PULSE 97; RESP 20; TEMP 36.2; O2SAT 93
[2021-11-29 14:12] LABS: Anion Gap 7 (5-15); BUN 32 mg/dL (7-18); BUN/Creat Ratio 25.4 RATIO (10-20); Calcium,Total 9.6 mg/dL (8.5-10.1); Chloride 99 mmol/L (98-107); Creatinine, Serum 1.26 mg/dL (0.55-1.02); EST Glomerular Filtration Rate 44 mL/min (>60); Est Glom Filt Rate - Afr Amer 53 mL/min (>60); Estimated Creatinine Clearance 27.71 ml/min; Glucose 129 mg/dL (74-106); Potassium 3.8 mmol/L (3.5-5.1); Sodium Level 135 mmol/L (136-145)
--- NOTE | 2021-11-29 16:28 | CASEMGMT ---
Social Work This child welfare social worker checked HENS, Level II still pending. Irineo Armendariz AMBULATORY SERVICE REPRESENTATIVE, LAP WINDER-S
[2021-11-29] MEDS: Losartan Potassium 100 MG Tablet PO (21:08)
[2021-11-29] MEDS: Citalopram 10 MG Tablet PO (21:09)
[2021-11-29] MEDS: hydroCHLOROthiazide 12.5mg 12.5 MG PO (21:09)
[2021-11-29] MEDS: Atorvastatin Calcium 40 MG Tablet PO (21:09)
[2021-11-29] MEDS: amLODIPine 5 MG Tablet PO (21:09)
[2021-11-30] MEDS: Famotidine 20 MG Tablet 40 MG PO (05:24)
[2021-11-30] MEDS: Umeclidinium Brm/Vilanterol 62.5-25 mcg Inh 1 PUFF INHALATION (05:24)
[2021-11-30] MEDS: Gabapentin 100 MG Capsule PO ×3 (05:25→21:27)
[2021-11-30] MEDS: Menthol/Lanolin/Calamine/Znox 113 GM Tube 1 APPLIC TOPICAL ×2 (05:28→17:30)
[2021-11-30] MEDS: Nystatin Powder 15gm Bottle 1 APPLIC TOPICAL ×2 (05:28→17:30)
[2021-11-30 05:39] LABS: Absolute Lymphocyte Count 3.29 X10^3/uL (0.83-4.51); Absolute Neutrophil Count 5.6 X10^3/uL (2.0-7.7); Basophil# 0.04 X10^3/uL; Basophil% 0.4 % (0-1); Eosinophil# 0.48 X10^3/uL; Eosinophils% 4.5 % (0-5); Hematocrit 40.5 % (37-47); Hemoglobin 13.7 g/dL (12.0-15.0); Lymphocyte # 3.29 X10^3/ul (0.83-4.51); Lymphocyte % 31.2 % (19-41); Mean Corp Hgb Conc 33.8 g/dL (32-36); Mean Corpuscular Hgb 31.8 pg (27.0-32.0); Mean Platelet Vol. 10.8 fl (6.2-12.0); Monocyte# 1.07 X10^3/uL; Monocyte% 10.1 % (0-10); NRBC Flagged by Analyzer 0 % (0-5); Neutrophil % 53.1 % (47-70); Platelet Count 223 K/mm3 (150-450); RBC Distribution Width CV 12.4 % (11.6-14.6); RBC Distribution Width SD 42.8 fl (35.1-43.9); Red Blood Count 4.31 M/mm3 (4.2-5.4); White Blood Count 10.6 K/mm3 (4.4-11.0)
[2021-11-30 06:03] LABS: Anion Gap 3 (5-15); BUN 35 mg/dL (7-18); BUN/Creat Ratio 25.9 RATIO (10-20); Calcium,Total 9.7 mg/dL (8.5-10.1); Chloride 100 mmol/L (98-107); Creatinine, Serum 1.35 mg/dL (0.55-1.02); EST Glomerular Filtration Rate 41 mL/min (>60); Est Glom Filt Rate - Afr Amer 49 mL/min (>60); Estimated Creatinine Clearance 25.86 ml/min; Glucose 143 mg/dL (74-106); Potassium 4.5 mmol/L (3.5-5.1); Sodium Level 137 mmol/L (136-145)
[2021-11-30 06:45] LABS: Bedside Glucose 160 mg/dL (74-106)
[2021-11-30 08:39] VITALS: BP 176/93; PULSE 70; RESP 16; TEMP 36.4; O2SAT 91
[2021-11-30 09:30] VITALS: BP 144/73; PULSE 94; RESP 18; TEMP 36.4; O2SAT 91
--- NOTE | 2021-11-30 09:30 | NURSING ---
Addendum entered by Keke Carlson 11/30/21 14:47: pt returned to floor at approx 1330, VS WNL, denies pain Original Note: Pt leaving floor at this time for procedure in AC.
[2021-11-30 14:00] VITALS: BP 98/62; PULSE 85; RESP 16; TEMP 36.1; O2SAT 96
--- NOTE | 2021-11-30 15:04 | CASEMGMT ---
Social Work Continue to check [employer] website for determination results. Maritza Galvez, ICT DEVELOPMENT MANAGER YOUTH SUPPORT WORKER
[2021-11-30] MEDS: Senna/Docusate Sodium 1 Tablet PO (17:29)
[2021-11-30] MEDS: metFORMIN HCl 500 MG Tablet PO (17:29)
[2021-11-30] MEDS: Glucerna Shake 120 ML LIQUID PO (17:30)
[2021-11-30] MEDS: Atorvastatin Calcium 40 MG Tablet PO (21:26)
[2021-11-30] MEDS: Citalopram 10 MG Tablet PO (21:26)
[2021-11-30] MEDS: amLODIPine 5 MG Tablet PO (21:26)
[2021-11-30] MEDS: Losartan Potassium 100 MG Tablet PO (21:26)
[2021-11-30] MEDS: hydroCHLOROthiazide 12.5mg 12.5 MG PO (21:27)
[2021-11-30 22:45] VITALS: RESP 16
[2021-12-01] MEDS: Iron Polysaccharide Complex 150 MG CAPSULE PO (05:21)
[2021-12-01] MEDS: Menthol/Lanolin/Calamine/Znox 113 GM Tube 1 APPLIC TOPICAL ×2 (05:21→17:48)
[2021-12-01] MEDS: Gabapentin 100 MG Capsule PO ×3 (05:21→20:33)
[2021-12-01] MEDS: Famotidine 20 MG Tablet 40 MG PO (05:21)
[2021-12-01] MEDS: Umeclidinium Brm/Vilanterol 62.5-25 mcg Inh 1 PUFF INHALATION (05:21)
[2021-12-01] MEDS: Senna/Docusate Sodium 1 Tablet PO ×2 (05:21→17:49)
[2021-12-01] MEDS: Nystatin Powder 15gm Bottle 1 APPLIC TOPICAL ×2 (05:21→20:33)
[2021-12-01 06:31] LABS: Bedside Glucose 153 mg/dL (74-106)
[2021-12-01] MEDS: metFORMIN HCl 500 MG Tablet PO ×2 (08:22→17:48)
[2021-12-01] MEDS: Cholecalciferol (VIT D3) 25 MCG TABLET (1,000 UNITS) PO (08:22)
[2021-12-01] MEDS: Glucerna Shake 120 ML LIQUID PO ×3 (11:27→20:28)
[2021-12-01 12:10] VITALS: BP 118/70; PULSE 74; RESP 20; TEMP 36.2; O2SAT 95
--- NOTE | 2021-12-01 14:17 | NURSING ---
PT WILL HAVE COOKIE SWALLOW DONE ON 12/02/21 AT 1300
--- NOTE | 2021-12-01 16:54 | CASEMGMT ---
Social Work SW received email correspondence from DD Sister [facility] for pt's PASRR - she is requesting clinical information - SW sent. SW updated [place] at [facility]. Pt will continue to remain in TCU until results are given. Maritza Galvez ,KALEB MORATAYAW
[2021-12-01] MEDS: Citalopram 10 MG Tablet PO (20:28)
[2021-12-01] MEDS: Losartan Potassium 100 MG Tablet PO (20:28)
[2021-12-01] MEDS: Atorvastatin Calcium 40 MG Tablet PO (20:32)
[2021-12-01] MEDS: hydroCHLOROthiazide 12.5mg 12.5 MG PO (20:32)
[2021-12-01] MEDS: amLODIPine 5 MG Tablet PO (20:33)
[2021-12-01 20:35] VITALS: PULSE 88; RESP 16; O2SAT 92
[2021-12-02 06:20] LABS: Bedside Glucose 135 mg/dL (74-106)
[2021-12-02] MEDS: Umeclidinium Brm/Vilanterol 62.5-25 mcg Inh 1 PUFF INHALATION (06:22)
[2021-12-02] MEDS: Senna/Docusate Sodium 1 Tablet PO ×2 (06:24→17:21)
[2021-12-02] MEDS: Famotidine 20 MG Tablet 40 MG PO (06:24)
[2021-12-02] MEDS: Gabapentin 100 MG Capsule PO ×3 (06:24→22:40)
[2021-12-02] MEDS: Iron Polysaccharide Complex 150 MG CAPSULE PO (06:24)
[2021-12-02] MEDS: Nystatin Powder 15gm Bottle 1 APPLIC TOPICAL ×2 (06:29→22:41)
[2021-12-02] MEDS: Menthol/Lanolin/Calamine/Znox 113 GM Tube 1 APPLIC TOPICAL ×2 (06:29→17:20)
[2021-12-02] MEDS: Cholecalciferol (VIT D3) 25 MCG TABLET (1,000 UNITS) PO (08:20)
[2021-12-02] MEDS: metFORMIN HCl 500 MG Tablet PO ×2 (08:20→17:21)
--- NOTE | 2021-12-02 11:32 | NURSING ---
STEPH FROM [facility] CALLED AND UPDATE WAS GIVEN. SHE STATED SHE WILL CALL BACK TOMORROW TO FOLLOW UP ON PT SWALLOW TEST.
[2021-12-02] MEDS: Glucerna Shake 120 ML LIQUID PO (11:38)
--- NOTE | 2021-12-02 13:28 | NURSING ---
COOKIE SWALLOW IS POSTPONE TILL 12/03/21 DUE TO EQUIPMENT MALFUNCTION. SPEECH/IMAGING WILL LET STAFF KNOW WHAT TIME. RN AWARE
[2021-12-02 14:00] VITALS: BP 118/52; PULSE 81; RESP 20; TEMP 36.2; O2SAT 94
--- NOTE | 2021-12-02 14:27 | NURSING ---
Addendum entered by Bob Stone 12/02/21 14:42: STEPH BIGGS CALLED BACK AND NURSE UPDATED HER ON POSITIVE STAFF MEMBER FOR COVID. PT ALSO WAS INFORMED. Original Note: CALLED [facility]OW[facility] TO UPDATE ON PT. NO ANSWER,LEFT MESSAGE TO CALL.
--- NOTE | 2021-12-02 14:56 | CASEMGMT ---
Social Work Received Level II PASRR results with approval to transfer to [facility]. Notified Toshia, Director and Tiffanie [facility]. Updated all IDT for DC 12/03. Toshia requesting w/c transport. Scheduled w/c transport through [facility] for [facility] am. Plan: DC to [facility], skilled. 12/03
--- NOTE | 2021-12-02 15:52 | NURSING ---
SWALLOW TEST CANCELED DUE TO PT D/C TOMORROW,12/03.
--- NOTE | 2021-12-02 17:23 | NURSING ---
PT HAS NOT HAD A BM IN 3 DAYS,ASKED PT IF SHE WOULD TAKE A PRN. PT STATED NO I DONT WANT THE SHITS ALL DAY. RN AWARE
[2021-12-02] MEDS: Atorvastatin Calcium 40 MG Tablet PO (22:42)
[2021-12-02] MEDS: Losartan Potassium 100 MG Tablet PO (22:42)
[2021-12-02] MEDS: Citalopram 10 MG Tablet PO (22:42)
[2021-12-02] MEDS: hydroCHLOROthiazide 12.5mg 12.5 MG PO (22:42)
[2021-12-02] MEDS: amLODIPine 5 MG Tablet PO (22:42)
[2021-12-03] MEDS: Senna/Docusate Sodium 1 Tablet PO (06:02)
[2021-12-03] MEDS: Gabapentin 100 MG Capsule PO (06:02)
[2021-12-03] MEDS: Nystatin Powder 15gm Bottle 1 APPLIC TOPICAL (06:02)
[2021-12-03] MEDS: Famotidine 20 MG Tablet 40 MG PO (06:02)
[2021-12-03] MEDS: Glucerna Shake 120 ML LIQUID PO (06:02)
[2021-12-03] MEDS: Menthol/Lanolin/Calamine/Znox 113 GM Tube 1 APPLIC TOPICAL (06:02)
[2021-12-03] MEDS: Umeclidinium Brm/Vilanterol 62.5-25 mcg Inh 1 PUFF INHALATION (06:02)
[2021-12-03] MEDS: Iron Polysaccharide Complex 150 MG CAPSULE PO (06:02)
[2021-12-03 06:16] LABS: Bedside Glucose 115 mg/dL (74-106)
[2021-12-03] MEDS: metFORMIN HCl 500 MG Tablet PO (07:46)
[2021-12-03] MEDS: Cholecalciferol (VIT D3) 25 MCG TABLET (1,000 UNITS) PO (07:46)
--- NOTE | 2021-12-03 10:57 | NURSING ---
Report called into [facility].
== END 2021-12-03 11:00 | disposition skilled nursing facility (03) | DRG 560 ==
PROVIDERS: Admitting Provider Family Medicine Geriatric Medicine; PCP Family Medicine Geriatric Medicine; Visit Provider Family Medicine Geriatric Medicine
DX: Z47.89 Encounter for other orthopedic aftercare (principal); G95.29 Other cord compression; N39.0 Urinary tract infection, site not specified; E11.42 Type 2 diabetes mellitus with diabetic polyneuropathy; B35.4 Tinea corporis; E55.9 Vitamin D deficiency, unspecified; B96.20 Unspecified Escherichia coli [E. coli] as the cause of diseases classified elsewhere; J44.9 Chronic obstructive pulmonary disease, unspecified; E78.2 Mixed hyperlipidemia; I10 Essential (primary) hypertension; K21.9 Gastro-esophageal reflux disease without esophagitis; M19.90 Unspecified osteoarthritis, unspecified site; F32.A Depression, unspecified; Z98.1 Arthrodesis status; Z87.891 Personal history of nicotine dependence; Z79.84 Long term (current) use of oral hypoglycemic drugs; Z79.899 Other long term (current) drug therapy; R49.1 Aphonia
CPT/HCPCS: 36415; 71046; 74230; 80048; 81001; 82962; 85014; 85018; 85025; 87086; 87088; 87186; 87426; 92507; 92523; 92526; 92610; 92611; 93005; 97110; 97116; 97162; 97164; 97166; 97168; 97530; 97535; J7030

== ENCOUNTER 2021-11-30 09:46 | Day surgery (SDC) | payer MEDICARE, MEDICAID, SELFPAY ==
[2021-11-30 10:01] VITALS: BP 117/65; PULSE 88; RESP 16; TEMP 36.4; O2SAT 94; BMI 26.5
[2021-11-30] MEDS: Lactated Ringers 1,000 ML 15 ML IV (10:36)
[2021-11-30 10:46] LABS: Bedside Glucose 178 mg/dL (74-106)
--- NOTE | 2021-11-30 11:14 | PCM.DC ---
Discharge Instructions Diet Discharge Diet: No restrictions Activity Discharge Activity: Return to Normal Activity Dressing / Incision Call your doctor if your incision/area has: Increased Pain/ Swelling Follow Up Care Please Follow Up With: Karlos Greenwood MD When: 1 month Test Results: Test results from this visit will be discussed in further detail at your follow-up appointment, if applicable. Discharge Plan Admission Attending Provider: Karlos Greenwood Primary Care Provider: Mook Merlos Chi Discharge Orders/Prescriptions Prescriptions: No Action famotidine 40 mg tablet 40 mg PO DAILY RF: 0 gabapentin 100 mg capsule 100 mg PO TID RF: 0 atorvastatin 40 mg tablet 40 mg PO QHS RF: 0 metformin 500 mg tablet 500 mg PO BID RF: 0 citalopram 10 mg tablet 10 mg PO QHS RF: 0 valsartan-hydrochlorothiazide 320-12.5 mg tablet 1 tab PO QHS RF: 0 cholecalciferol (vitamin D3) [Vitamin D3] 25 mcg (1,000 unit) Tablet 25 mcg PO DAILY RF: 0 Bevespi Aerosphere 9-4.8 mcg HFA aerosol inhaler 2 puff INHALATION BID RF: 0 polysaccharide iron complex [Ferrex 150] 150 mg iron Capsule 150 mg PO DAILY 30 Days Qty: 30 RF: 0 amlodipine 5 mg Tablet 5 mg PO QHS 30 Days Qty: 30 RF: 0 tramadol 50 mg Tablet 50 mg PO Q6H PRN PRN (Reason: Pain Score 4-5) 7 Days Qty: 28 RF: 0 tramadol 50 mg Tablet 50 mg PO Q6H PRN PRN (Reason: Pain Score 4-10) 3 Days Qty: 12 RF: 0 Disposition Discharge Orders: Discharge Patient (Routine); Ordered 11/30/21 Ordered By: Dr. Karlos Greenwood
--- NOTE | 2021-11-30 11:15 | PCM.OPRPT ---
Problems Associated Problem List Diagnoses (1) Vocal cord palsy: Report of Operation Date of Procedure: 11/30/21 Pre-Operative Diagnosis: left vocal cord paresis Post-Operative Diagnosis: left vocal cord paresis Surgery/Procedure Performed:: direct laryngoscopy with injection vocal cord, left Surgeon: franco Type of Anesthesia: General Description of Procedure: on the day of the procedure, after appropriate informed consent was obtained, the patient was brought to the operating room and placed in supine position on the operating table. she was placed under general endotracheal anesthesia by the anesthesiologist. the endotracheal tube was secured, the eyes were taped. the table was rotated 90 degrees toward the surgeon. a mouth guard was placed. the leah laryngoscope was inserted into the oral cavity until a good glottic view was obtained with the operative telescope. 0.8cc of prolaryn gel was injected into the paraglottic space lateral to the junction of the anterior 2/3 and posterior 1/3 of the left vocal cord. she was awoken from anesthesia and transferred to the PACU in stable condition.
[2021-11-30 11:57] VITALS: BP 117/65; BP 121/74; PULSE 95; RESP 16; TEMP 36.6; O2SAT 92
[2021-11-30 12:00] VITALS: BP 117/65; BP 125/80; PULSE 93; RESP 16; O2SAT 93
[2021-11-30 12:15] VITALS: BP 117/65; BP 128/62; PULSE 82; RESP 16; O2SAT 93
[2021-11-30 12:39] VITALS: BP 117/65; BP 124/78; PULSE 84; RESP 16; TEMP 36.5; O2SAT 93
[2021-11-30 12:46] LABS: Bedside Glucose 145 mg/dL (74-106)
[2021-11-30 13:20] VITALS: BP 117/65
--- NOTE | 2021-11-30 13:25 | SUR.PHASEII ---
report called to tcu by this rn.
--- NOTE | 2021-11-30 13:30 | SUR.PHASEII ---
per tcu nurse we are to leave IV in place. pt transferred to tcu with iv saline locked.
== END 2021-11-30 13:25 | disposition home or self-care (01) ==
LOC: SDC 09:49 → AC 09:50
PROVIDERS: PCP Family Medicine Geriatric Medicine; Referring Provider Otolaryngology; Visit Provider Otolaryngology
PROC: (CPT 31570; principal; 2021-11-30 10:25)
DX: J38.01 Paralysis of vocal cords and larynx, unilateral (principal); E11.9 Type 2 diabetes mellitus without complications; R13.10 Dysphagia, unspecified; I10 Essential (primary) hypertension; Z86.73 Personal history of transient ischemic attack (TIA), and cerebral infarction without residual deficits; Z79.84 Long term (current) use of oral hypoglycemic drugs; Z79.899 Other long term (current) drug therapy
CPT/HCPCS: 31570; 82962; J7120

== ENCOUNTER → 2021-12-16 | Outpatient (CLI) | payer MEDICARE, MEDICAID, SELFPAY ==
--- NOTE | 2021-12-16 14:57 | RAD_ITS ---
STUDY: X-RAY - LEFT SHOULDER REASON FOR EXAM: Female, 76 years old. Weakness. TECHNIQUE: 4 view(s) of the shoulder. COMPARISON: None. FINDINGS: There is mild degenerative arthrosis of the glenohumeral articulation. Normal acromioclavicular joint. Normal acromion. There is no acute fracture, dislocation or destructive osseous pathology. There is demineralization of the humerus and visualized osseous structures. The soft tissue structures are unremarkable. Normal visualized pulmonary apex. RAD/Shoulder min 2 Views IMPRESSION: Osteopenia and degenerative changes of the left shoulder. Electronically Signed: Olu Zhang DO at 22:54 EDT ,
[2021-12-24 21:37] LABS: HLA B27 Negative (.)
== END | disposition home or self-care (01) ==
LOC: MTLAB 14:57
PROVIDERS: PCP Family Medicine Geriatric Medicine; Referring Provider Psychiatry & Neurology Neurology; Visit Provider Psychiatry & Neurology Neurology
DX: R29.898 Other symptoms and signs involving the musculoskeletal system (principal)
CPT/HCPCS: 36415; 73030; 81374

== ENCOUNTER → 2022-01-11 | Outpatient (CLI) | payer MEDICARE, MEDICAID, SELFPAY ==
[2022-01-11 12:06] LABS: Absolute Lymphocyte Count 1.41 X10^3/uL (0.83-4.51); Absolute Neutrophil Count 5.8 X10^3/uL (2.0-7.7); Basophil# 0.03 X10^3/uL; Basophil% 0.4 % (0-1); Eosinophil# 0.25 X10^3/uL; Hematocrit 41.5 % (37-47); Hemoglobin 13.7 g/dL (12.0-15.0); Lymphocyte # 1.41 X10^3/ul (0.83-4.51); Mean Corpuscular Hgb 32.2 pg (27.0-32.0); Mean Corpuscular Volume 97.6 fL (81-99); Mean Platelet Vol. 11.2 fl (6.2-12.0); Monocyte# 0.78 X10^3/uL; Monocyte% 9.4 % (0-10); NRBC Flagged by Analyzer 0 % (0-5); Neutrophil # 5.77 X10^3/uL (2.7-7.7); Neutrophil % 69.6 % (47-70); POSITIVE COUNT YES; RBC Distribution Width CV 12.6 % (11.6-14.6); Red Blood Count 4.25 M/mm3 (4.2-5.4); White Blood Count 8.3 K/mm3 (4.4-11.0)
[2022-01-11 12:49] LABS: ALB/GLOB Ratio 0.9 RATIO (0.9-2.4); AST(SGOT) 15 U/L (15-37); Alanine Aminotransfer ALT/SGPT 25 U/L (13-56); Albumin, Serum 3.5 g/dL (3.2-5.0); Alkaline Phosphatase 82 U/L (45-117); Anion Gap 6 (5-15); BUN 25 mg/dL (7-18); BUN/Creat Ratio 23.6 RATIO (10-20); Calcium,Total 9.7 mg/dL (8.5-10.1); Chloride 102 mmol/L (98-107); Creatinine, Serum 1.06 mg/dL (0.55-1.02); EST Glomerular Filtration Rate 54 mL/min (>60); Est Glom Filt Rate - Afr Amer 65 mL/min (>60); Globulin 3.8 g/dL (2.2-4.2); Glucose 139 mg/dL (74-106); Phosphorus 2.8 mg/dL (2.5-4.9); Protein, Total 7.3 g/dL (6.4-8.2); Sodium Level 136 mmol/L (136-145)
[2022-01-11 12:57] LABS: Differential Indicated SCAN CRITERIA MET
[2022-01-11 12:58] LABS: Platelet Estimate ADEQUATE (ADEQ)
== END | disposition home or self-care (01) ==
PROVIDERS: PCP Family Medicine Geriatric Medicine; Visit Provider Internal Medicine Nephrology
DX: E11.22 Type 2 diabetes mellitus with diabetic chronic kidney disease (principal); N18.32 Chronic kidney disease, stage 3b
CPT/HCPCS: 36415; 80053; 83970; 84100; 84443; 85025

== ENCOUNTER → 2022-06-28 | Outpatient (CLI) | payer MEDICARE, MEDICAID, SELFPAY ==
[2022-06-28 13:04] LABS: Absolute Lymphocyte Count 1.83 X10^3/uL (0.83-4.51); Absolute Neutrophil Count 5.4 X10^3/uL (2.0-7.7); Basophil# 0.02 X10^3/uL; Basophil% 0.2 % (0-1); Eosinophils% 3.7 % (0-5); Hematocrit 42.5 % (37-47); Hemoglobin 14.3 g/dL (12.0-15.0); Lymphocyte # 1.83 X10^3/ul (0.83-4.51); Lymphocyte % 22.4 % (19-41); Mean Corp Hgb Conc 33.6 g/dL (32-36); Mean Corpuscular Volume 92.2 fL (81-99); Mean Platelet Vol. 11.1 fl (6.2-12.0); Monocyte# 0.63 X10^3/uL; Monocyte% 7.7 % (0-10); NRBC Flagged by Analyzer 0 % (0-5); Neutrophil # 5.36 X10^3/uL (2.7-7.7); Neutrophil % 65.5 % (47-70); Platelet Count 216 K/mm3 (150-450); RBC Distribution Width CV 12.5 % (11.6-14.6); RBC Distribution Width SD 42.1 fl (35.1-43.9); Red Blood Count 4.61 M/mm3 (4.2-5.4); White Blood Count 8.2 K/mm3 (4.4-11.0)
[2022-06-28 13:31] LABS: AST(SGOT) 11 U/L (15-37); Alanine Aminotransfer ALT/SGPT 16 U/L (13-56); Albumin, Serum 3.8 g/dL (3.2-5.0); Alkaline Phosphatase 76 U/L (45-117); Anion Gap 11 (5-15); BUN 26 mg/dL (7-18); BUN/Creat Ratio 18.8 RATIO (10-20); Calcium,Total 9.8 mg/dL (8.5-10.1); Chloride 99 mmol/L (98-107); Creatinine, Serum 1.38 mg/dL (0.55-1.02); EST Glomerular Filtration Rate 40 mL/min (>60); Est Glom Filt Rate - Afr Amer 48 mL/min (>60); Globulin 3.8 g/dL (2.2-4.2); Glucose 138 mg/dL (74-106); Potassium 3.9 mmol/L (3.5-5.1); Protein, Total 7.6 g/dL (6.4-8.2); Sodium Level 138 mmol/L (136-145); Thyroid Stim Hormone (TSH) 1.44 uIU/mL (0.358-3.74)
== END | disposition home or self-care (01) ==
LOC: POLAB3 10:09
PROVIDERS: PCP Family Medicine Geriatric Medicine; Visit Provider Family Medicine Geriatric Medicine
DX: I10 Essential (primary) hypertension (principal); E11.65 Type 2 diabetes mellitus with hyperglycemia
CPT/HCPCS: 36415; 80053; 84443; 85025

== ENCOUNTER → 2022-08-23 | Outpatient (CLI) | payer MEDICARE, MEDICAID, SELFPAY ==
[2022-08-23 18:03] LABS: Albumin, Serum 3.6 g/dL (3.2-5.0); BUN 26 mg/dL (7-18); BUN/Creat Ratio 21.3 RATIO (10-20); Calcium,Total 9.1 mg/dL (8.5-10.1); Chloride 101 mmol/L (98-107); Creatinine, Serum 1.22 mg/dL (0.55-1.02); EST Glomerular Filtration Rate 46 mL/min (>60); Est Glom Filt Rate - Afr Amer 55 mL/min (>60); Glucose 152 mg/dL (74-106); Phosphorus 3.7 mg/dL (2.5-4.9); Potassium 3.7 mmol/L (3.5-5.1); Sodium Level 138 mmol/L (136-145)
== END | disposition home or self-care (01) ==
LOC: POLAB3 13:54
PROVIDERS: PCP Family Medicine Geriatric Medicine; Visit Provider Internal Medicine Nephrology
DX: N17.9 Acute kidney failure, unspecified (principal)
CPT/HCPCS: 36415; 80069

== ENCOUNTER → 2023-01-24 | Outpatient (CLI) | payer MEDICARE, MEDICAID, SELFPAY ==
[2023-01-24 12:45] LABS: Absolute Lymphocyte Count 2.22 X10^3/uL (0.83-4.51); Absolute Neutrophil Count 6.2 X10^3/uL (2.0-7.7); Basophil# 0.03 X10^3/uL; Basophil% 0.3 % (0-1); Eosinophil# 0.27 X10^3/uL; Eosinophils% 2.9 % (0-5); Hematocrit 46.4 % (37-47); Lymphocyte # 2.22 X10^3/ul (0.83-4.51); Lymphocyte % 23.4 % (19-41); Mean Corp Hgb Conc 34.5 g/dL (32-36); Mean Corpuscular Hgb 31.7 pg (27.0-32.0); Mean Corpuscular Volume 92.1 fL (81-99); Mean Platelet Vol. 10.4 fl (6.2-12.0); Monocyte# 0.74 X10^3/uL; Monocyte% 7.8 % (0-10); NRBC Flagged by Analyzer 0 % (0-5); Neutrophil # 6.16 X10^3/uL (2.7-7.7); Neutrophil % 65.1 % (47-70); Platelet Count 227 K/mm3 (150-450); RBC Distribution Width CV 12.4 % (11.6-14.6); Red Blood Count 5.04 M/mm3 (4.2-5.4); White Blood Count 9.5 K/mm3 (4.4-11.0)
[2023-01-24 13:21] LABS: ALB/GLOB Ratio 0.9 RATIO (0.9-2.4); AST(SGOT) 16 U/L (15-37); Alanine Aminotransfer ALT/SGPT 27 U/L (13-56); Albumin, Serum 3.7 g/dL (3.2-5.0); Alkaline Phosphatase 96 U/L (45-117); Anion Gap 8 (5-15); BUN 22 mg/dL (7-18); BUN/Creat Ratio 16.8 RATIO (10-20); Calcium,Total 9.2 mg/dL (8.5-10.1); Chloride 100 mmol/L (98-107); Cholesterol 218 mg/dL (200); Creatinine, Serum 1.31 mg/dL (0.55-1.02); EST Glomerular Filtration Rate 42 mL/min (>60); Est Glom Filt Rate - Afr Amer 51 mL/min (>60); Globulin 4.2 g/dL (2.2-4.2); Glucose 193 mg/dL (74-106); High Density Lipoprotein 44 mg/dL; Phosphorus 2.6 mg/dL (2.5-4.9); Potassium 3.5 mmol/L (3.5-5.1); Protein, Total 7.9 g/dL (6.4-8.2); Sodium Level 136 mmol/L (136-145); Triglycerides 236 mg/dL; Very Low Density Lipoprotein 47 mg/dL (5-40)
[2023-01-24 13:44] LABS: Vitamin D,25 Hydroxy 48.8 ng/mL
[2023-01-24 14:10] LABS: Hemoglobin A1c 6.8 % (3.8-5.6)
== END | disposition home or self-care (01) ==
LOC: POLAB3 01-26 11:05
PROVIDERS: PCP Family Medicine Geriatric Medicine; Visit Provider Internal Medicine Nephrology
DX: I12.9 Hypertensive chronic kidney disease with stage 1 through stage 4 chronic kidney disease, or unspecified chronic kidney disease (principal); E11.65 Type 2 diabetes mellitus with hyperglycemia; E11.22 Type 2 diabetes mellitus with diabetic chronic kidney disease; N18.32 Chronic kidney disease, stage 3b; E55.9 Vitamin D deficiency, unspecified
CPT/HCPCS: 36415; 80053; 80061; 82306; 83036; 84100; 84443; 85025

== ENCOUNTER → 2023-08-22 | Outpatient (CLI) | payer MEDICARE, MEDICAID, SELFPAY ==
[2023-08-22 11:54] LABS: Absolute Lymphocyte Count 1.48 X10^3/uL (0.83-4.51); Absolute Neutrophil Count 6.1 X10^3/uL (2.0-7.7); Basophil# 0.02 X10^3/uL; Basophil% 0.2 % (0-1); Eosinophil# 0.29 X10^3/uL; Eosinophils% 3.3 % (0-5); Hematocrit 44.2 % (37-47); Hemoglobin 15.3 g/dL (12.0-15.0); Lymphocyte # 1.48 X10^3/ul (0.83-4.51); Mean Corp Hgb Conc 34.6 g/dL (32-36); Mean Corpuscular Hgb 32.3 pg (27.0-32.0); Mean Corpuscular Volume 93.4 fL (81-99); Mean Platelet Vol. 11.2 fl (6.2-12.0); Monocyte# 0.75 X10^3/uL; Monocyte% 8.6 % (0-10); NRBC Flagged by Analyzer 0 % (0-5); Neutrophil # 6.12 X10^3/uL (2.7-7.7); Neutrophil % 70.1 % (47-70); Platelet Count 228 K/mm3 (150-450); Red Blood Count 4.73 M/mm3 (4.2-5.4); White Blood Count 8.7 K/mm3 (4.4-11.0)
[2023-08-22 12:15] LABS: Hemoglobin A1c 7.5 % (3.8-5.6); Vitamin D,25 Hydroxy 48.3 ng/mL
[2023-08-22 12:22] LABS: AST(SGOT) 12 U/L (15-37); Alanine Aminotransfer ALT/SGPT 22 U/L (13-56); Albumin, Serum 3.7 g/dL (3.2-5.0); Alkaline Phosphatase 95 U/L (45-117); Anion Gap 9 (5-15); BUN 26 mg/dL (7-18); BUN/Creat Ratio 18.1 RATIO (10-20); Calcium,Total 9.5 mg/dL (8.5-10.1); Chloride 99 mmol/L (98-107); Cholesterol 220 mg/dL (200); Creatinine, Serum 1.44 mg/dL (0.55-1.02); EST Glomerular Filtration Rate 38 mL/min (>60); Est Glom Filt Rate - Afr Amer 45 mL/min (>60); Globulin 3.7 g/dL (2.2-4.2); Glucose 288 mg/dL (74-106); High Density Lipoprotein 41 mg/dL; Potassium 3.5 mmol/L (3.5-5.1); Protein, Total 7.4 g/dL (6.4-8.2); Sodium Level 135 mmol/L (136-145); Thyroid Stim Hormone (TSH) 1.11 uIU/mL (0.358-3.74); Triglycerides 203 mg/dL; Very Low Density Lipoprotein 41 mg/dL (5-40)
== END | disposition home or self-care (01) ==
PROVIDERS: PCP Family Medicine Geriatric Medicine; Visit Provider Family Medicine Geriatric Medicine
DX: I10 Essential (primary) hypertension (principal); E11.65 Type 2 diabetes mellitus with hyperglycemia; E78.5 Hyperlipidemia, unspecified; E55.9 Vitamin D deficiency, unspecified
CPT/HCPCS: 36415; 80053; 80061; 82306; 83036; 84443; 85025

== ENCOUNTER → 2023-10-31 | Outpatient (CLI) | payer MEDICARE, MEDICAID, SELFPAY ==
[2023-10-31 11:38] LABS: Albumin, Serum 3.8 g/dL (3.2-5.0); BUN 16 mg/dL (7-18); BUN/Creat Ratio 11.3 RATIO (10-20); Calcium,Total 9.4 mg/dL (8.5-10.1); Chloride 97 mmol/L (98-107); Creatinine, Serum 1.41 mg/dL (0.55-1.02); EST Glomerular Filtration Rate 38 mL/min (>60); Est Glom Filt Rate - Afr Amer 47 mL/min (>60); Glucose 241 mg/dL (74-106); Phosphorus 3.5 mg/dL (2.5-4.9); Potassium 3.4 mmol/L (3.5-5.1); Sodium Level 136 mmol/L (136-145)
[2023-10-31 14:33] LABS: Microalbumin,Random Urine 24.3 mg/L (NO RANGE EST.); Microalbumin:Creatinine Ratio 11.5 mg/g CRE (<30 mg/g CRE)
== END | disposition home or self-care (01) ==
PROVIDERS: PCP Family Medicine Geriatric Medicine; Referring Provider Internal Medicine Nephrology; Visit Provider Internal Medicine Nephrology
DX: E11.22 Type 2 diabetes mellitus with diabetic chronic kidney disease (principal); N18.32 Chronic kidney disease, stage 3b
CPT/HCPCS: 36415; 80069; 82043; 82570

== ENCOUNTER → 2023-12-05 | Outpatient (CLI) | payer MEDICARE, MEDICAID, SELFPAY ==
--- NOTE | 2023-12-05 11:03 | EKG12_ITS ---
Test Reason : COPD Blood Pressure : / mmHG Vent. Rate : 078 BPM Atrial Rate : 078 BPM P-R Int : 152 ms QRS Dur : 078 ms QT Int : 390 ms P-R-T Axes : 038 003 072 degrees QTc Int : 444 ms Sinus rhythm with Premature atrial complexes Low voltage QRS Septal infarct , age undetermined Abnormal ECG Confirmed by GET AKHTAR, SHANNON ([id number]), brands editor MARCELA HANNA ([id number]) on 12/06/2023 9:44:17 AM Referred By: Mook Merlos Confirmed By:SHANNON DEUTSCH MD
[2023-12-05 12:50] LABS: International Normalized Ratio 1.1; Prothrombin Time (Protime)PT. 14.3 SECONDS (11.7-14.9)
[2023-12-05 13:01] LABS: Absolute Lymphocyte Count 1.81 X10^3/uL (0.83-4.51); Absolute Neutrophil Count 6.9 X10^3/uL (2.0-7.7); Basophil# 0.03 X10^3/uL; Basophil% 0.3 % (0-1); Eosinophil# 0.27 X10^3/uL; Eosinophils% 2.8 % (0-5); Hematocrit 44.4 % (37-47); Hemoglobin 14.9 g/dL (12.0-15.0); Lymphocyte # 1.81 X10^3/ul (0.83-4.51); Lymphocyte % 18.6 % (19-41); Mean Corp Hgb Conc 33.6 g/dL (32-36); Mean Corpuscular Hgb 31.1 pg (27.0-32.0); Mean Corpuscular Volume 92.7 fL (81-99); Mean Platelet Vol. 11.2 fl (6.2-12.0); Monocyte# 0.66 X10^3/uL; Monocyte% 6.8 % (0-10); NRBC Flagged by Analyzer 0 % (0-5); Neutrophil # 6.91 X10^3/uL (2.7-7.7); Neutrophil % 70.9 % (47-70); Platelet Count 214 K/mm3 (150-450); RBC Distribution Width CV 12.3 % (11.6-14.6); RBC Distribution Width SD 42.1 fl (35.1-43.9); Red Blood Count 4.79 M/mm3 (4.2-5.4); White Blood Count 9.7 K/mm3 (4.4-11.0)
[2023-12-05 13:19] LABS: AST(SGOT) 19 U/L (15-37); Alanine Aminotransfer ALT/SGPT 23 U/L (13-56); Albumin, Serum 3.8 g/dL (3.2-5.0); Alkaline Phosphatase 88 U/L (45-117); Anion Gap 4 (5-15); BUN 27 mg/dL (7-18); BUN/Creat Ratio 23.1 RATIO (10-20); Calcium,Total 9.6 mg/dL (8.5-10.1); Chloride 99 mmol/L (98-107); Creatinine, Serum 1.17 mg/dL (0.55-1.02); EST Glomerular Filtration Rate 48 mL/min (>60); Est Glom Filt Rate - Afr Amer 58 mL/min (>60); Globulin 3.8 g/dL (2.2-4.2); Glucose 204 mg/dL (74-106); Potassium 4.3 mmol/L (3.5-5.1); Protein, Total 7.6 g/dL (6.4-8.2); Sodium Level 133 mmol/L (136-145)
== END | disposition home or self-care (01) ==
PROVIDERS: PCP Family Medicine Geriatric Medicine; Referring Provider Family Medicine Geriatric Medicine; Visit Provider Family Medicine Geriatric Medicine
DX: Z01.818 Encounter for other preprocedural examination (principal); I10 Essential (primary) hypertension
CPT/HCPCS: 36415; 80053; 85025; 85610; 93005

== ENCOUNTER 2024-01-01 13:20 | Emergency (ER) | payer MEDICARE, MEDICAID, SELFPAY ==
[2024-01-01 13:21] VITALS: BP 112/57; PULSE 80; RESP 16; TEMP 36.4; O2SAT 98
--- NOTE | 2024-01-01 14:23 | EDS_ITS ---
HPI History of Present Illness Chief Complaint: Foreign Body Informant: patient and mental health staff (residential staff) Narrative Narrative: Patient in a senior care has a history of mental retardation according to senior care staff, who states they did not witness this 2 to 3 hours ago but the patient was eating chicken noodle soup and apparently had a choking episode and continued coughing and was having dyspnea. She agrees she seems to be breathing easier now. Patient states she still feels a little short of breath. She denies having any pain. [facility] Medical History Walker as ambulation aid Cervical disc disorder Cervical spondylosis Cervical stenosis of spine Atherosclerosis Mixed hyperlipidemia Acute cystitis Macular degeneration Pseudophakia Disorder of bone and cartilage Onychomycosis Atrophic vaginitis ASD (atrial septal defect) Dermatophytosis Tobacco use disorder Chronic bronchitis Urethrocele Stress incontinence Dysuria Myelopathy Stroke Back problem Arthritis Hypertension Diabetes TIA (transient ischemic attack) Home Medications ?Medication ?Instructions ?Recorded ?Last Taken ?Type atorvastatin 40 mg tablet 40 mg PO QHS hypercholesterol 07/28/21 11/02/21 History citalopram 10 mg tablet 10 mg PO QHS Depression 07/28/21 11/02/21 History metformin 500 mg tablet 500 mg PO BID Diabetes 07/28/21 11/03/21 History famotidine 40 mg tablet 40 mg PO DAILY Stomach acid 10/05/21 11/03/21 History gabapentin 100 mg capsule 100 mg PO TID nerve pain 10/05/21 11/03/21 History cholecalciferol (vitamin D3) 25 25 mcg PO DAILY bones 11/03/21 11/03/21 History mcg (1,000 unit) tablet (Vitamin D3) glycopyrrolate 9 mcg-formoterol 2 puff inhalation BID SOB 11/03/21 11/03/21 History 4.8 mcg HFA aerosol inhaler (Bevespi Aerosphere) valsartan 320 1 tab PO QHS Blood pressure 11/03/21 11/02/21 History mg-hydrochlorothiazide 12.5 mg tablet amlodipine 5 mg tablet 5 mg PO QHS 30 days #30 tabs 11/19/21 Unknown Rx polysaccharide iron complex 150 mg 150 mg PO DAILY 30 days #30 caps 11/19/21 Unknown Rx iron capsule (Ferrex) tramadol 50 mg tablet 50 mg PO Q6H PRN PRN Pain Score 11/19/21 Unknown Rx 4-5 7 days #28 tabs tramadol 50 mg tablet 50 mg PO Q6H PRN PRN Pain Score 11/26/21 Unknown Rx 4-10 3 days #12 tabs Allergy/AdvReac Type Severity Reaction Status Date / Time amitriptyline Allergy Rash Verified 01/01/24 13:25 Penicillins Allergy Hives Verified 01/01/24 13:25 codeine AdvReac Intermediate Other Verified 01/01/24 13:25 Surgical History History of cervical spinal surgery Social History housing: other details: RESIDENTIAL Smoking Status: Former smoker alcohol intake: never substance use type: does not use what type of physical activity do you participate in: none EXAM Physical Exam Const Vital Signs: 01/01/24 13:21 01/01/24 14:19 Temperature 97.6 F L Temperature Source Temporal Pulse Rate 80 Respiratory Rate 16 Respiratory Effort Normal Respiratory Pattern Normal Blood Pressure 112/57 L Blood Pressure Mean 75 Pulse Ox 98 Oxygen Delivery Method Room Air Positive well nourished and well developed General Appearance ED: well developed and NAD HEENT Reports moist mucous membranes normocephalic and atraumatic Eyes PERRL and EOMs intact bilaterally Neck full ROM and supple Resp normal respiratory effort and clear to auscultation bilaterally Resp Narrative: Easy, normal respiratory effort without distress or accessory muscle use. Cardio regular rate, regular rhythm and no murmurs GI non-tender and non-distended Auscultation: normoactive bowel sounds Palpation: soft Back/Spine no CVA tenderness General Back: other FROM Extremity normal to inspection General Extremety ED: Negative for edema, pulses abnormal or tenderness General Extremity: Negative for edema or pulses abnormal Neuro CN's II-XII intact bilaterally and no sensory deficits noted Neuro Narrative: At mental status baseline according to senior care staff. Nonlateralizing peripheral neurologic exam. Sensorium / Orientation: awake and alert Motor Exam: general weakness Skin no rashes or lesions noted and no wounds MDM MDM MDM Narrative Medical decision making narrative: 2 view chest x-ray my interpretation shows no acute infiltrates or other acute abnormality, nor acute hyperinflation unilaterally. Clinically, she does not have rales or rhonchi to suggest acute aspiration. She is breathing normally with a respiratory rate of 16 and a pulse ox of 98% on room air. And con sidering the possibility of esophageal obstruction, we then gave her some water to sip on which she did well with, followed by applesauce which she ate without any difficulty swallowing, dyspnea, coughing, or choking. The senior care staff who knows her well states she is breathing normally now. She has had no coughing during my evaluation and she is stable for discharge and reassured. We discussed unlikely possibility of delayed onset dyspnea in case she did have some small amount of aspiration, and reasons to return. Radiography Diagnostic Testing: Clinical Impression(s) from Imaging Studies Chest X-Ray 01/01/24 14:25 IMPRESSION: Stable examination. Electronically Signed: Андрей Acosta MD at 14:45 EDT , Discharge Plan Triage Chief Complaint: Foreign Body ED Provider: Hema Giron Dx/Rx/DC Orders Clinical Impression: Choking due to food (regurgitated) Instructions: ED Choking Spell (Adult) Prescriptions: No Action famotidine 40 mg tablet 40 mg PO DAILY gabapentin 100 mg capsule 100 mg PO TID atorvastatin 40 mg tablet 40 mg PO QHS metformin 500 mg tablet 500 mg PO BID citalopram 10 mg tablet 10 mg PO QHS valsartan-hydrochlorothiazide 320-12.5 mg tablet 1 tab PO QHS cholecalciferol (vitamin D3) [Vitamin D3] 25 mcg (1,000 unit) Tablet 25 mcg PO DAILY Bevespi Aerosphere 9-4.8 mcg HFA aerosol inhaler 2 puff INHALATION BID polysaccharide iron complex [Ferrex 150] 150 mg iron Capsule 150 mg PO DAILY 30 Days Qty: 30 0RF amlodipine 5 mg Tablet 5 mg PO QHS 30 Days Qty: 30 0RF tramadol 50 mg Tablet 50 mg PO Q6H PRN PRN (Reason: Pain Score 4-5) 7 Days Qty: 28 0RF tramadol 50 mg Tablet 50 mg PO Q6H PRN PRN (Reason: Pain Score 4-10) 3 Days Qty: 12 0RF Primary Care Provider: Mook Merlos Chi Referrals: Mook Merlos Chi, MD [Primary Care Provider] - As Needed Print Language: Bengali Disposition Disposition: Home, Self Care
--- NOTE | 2024-01-01 14:25 | RAD_ITS ---
STUDY: X-RAY CHEST REASON FOR EXAM: Female, 78 years old. Cough/sob after eating TECHNIQUE: PA and lateral views of the chest. COMPARISON: Comparison is made with prior study dated November 11, 2021. FINDINGS: Stable elevation of the right hemidiaphragm. The lungs are clear and expanded. There is no demonstrated pleural abnormality. Normal size heart. Normal mediastinum and chris. Normal visualized pulmonary arteries. Normal visualized aortic arch and descending thoracic aorta. There are diffuse degenerative changes of the visualized thoracic spine. Normal visualized ribs, clavicles, and shoulders. There is no demonstrated abnormality of the visualized soft tissue structures of the upper abdomen. RAD/Chest PA and Lateral IMPRESSION: Stable examination. Electronically Signed: Андрей Acosta MD at 14:45 EDT ,
[2024-01-01 16:28] VITALS: PULSE 78; RESP 16; TEMP 36.3; O2SAT 98; BMI 28.0
== END 2024-01-01 16:29 | disposition home or self-care (01) ==
PROVIDERS: Emergency Provider Emergency Medicine; PCP Family Medicine Geriatric Medicine; Visit Provider Emergency Medicine
DX: T17.928A Food in respiratory tract, part unspecified causing other injury, initial encounter (principal); J42 Unspecified chronic bronchitis; E11.9 Type 2 diabetes mellitus without complications; W44.F3XA Food entering into or through a natural orifice, initial encounter; E78.2 Mixed hyperlipidemia; F79 Unspecified intellectual disabilities; Z79.84 Long term (current) use of oral hypoglycemic drugs; Z79.899 Other long term (current) drug therapy; Z87.891 Personal history of nicotine dependence; Z86.73 Personal history of transient ischemic attack (TIA), and cerebral infarction without residual deficits
CPT/HCPCS: 71046; 99282

== ENCOUNTER → 2024-03-05 | Outpatient (CLI) | payer MEDICARE, MEDICAID, SELFPAY ==
[2024-03-05 10:24] LABS: Absolute Lymphocyte Count 1.87 X10^3/uL (0.83-4.51); Basophil# 0.04 X10^3/uL; Basophil% 0.4 % (0-1); Eosinophil# 0.34 X10^3/uL; Eosinophils% 3.8 % (0-5); Hematocrit 44.7 % (37-47); Hemoglobin 14.8 g/dL (12.0-15.0); Lymphocyte # 1.87 X10^3/ul (0.83-4.51); Lymphocyte % 20.8 % (19-41); Mean Corp Hgb Conc 33.1 g/dL (32-36); Mean Corpuscular Hgb 31.7 pg (27.0-32.0); Mean Corpuscular Volume 95.7 fL (81-99); Mean Platelet Vol. 11.2 fl (6.2-12.0); Monocyte# 0.71 X10^3/uL; Monocyte% 7.9 % (0-10); NRBC Flagged by Analyzer 0 % (0-5); Neutrophil # 5.99 X10^3/uL (2.7-7.7); Neutrophil % 66.4 % (47-70); Platelet Count 215 K/mm3 (150-450); RBC Distribution Width CV 12.6 % (11.6-14.6); RBC Distribution Width SD 44.3 fl (35.1-43.9); Red Blood Count 4.67 M/mm3 (4.2-5.4)
[2024-03-05 10:43] LABS: Hemoglobin A1c 6.9 % (3.8-5.6)
[2024-03-05 10:51] LABS: Vitamin D,25 Hydroxy 55.3 ng/mL
[2024-03-05 10:55] LABS: ALB/GLOB Ratio 0.8 RATIO (0.9-2.4); AST(SGOT) 16 U/L (15-37); Alanine Aminotransfer ALT/SGPT 18 U/L (13-56); Albumin, Serum 3.3 g/dL (3.2-5.0); Alkaline Phosphatase 87 U/L (45-117); Anion Gap 8 (5-15); BUN 20 mg/dL (7-18); BUN/Creat Ratio 16.3 RATIO (10-20); Calcium,Total 9.1 mg/dL (8.5-10.1); Chloride 99 mmol/L (98-107); Cholesterol 237 mg/dL (200); Creatinine, Serum 1.23 mg/dL (0.55-1.02); EST Glomerular Filtration Rate 45 mL/min (>60); Est Glom Filt Rate - Afr Amer 54 mL/min (>60); Globulin 3.9 g/dL (2.2-4.2); Glucose 250 mg/dL (74-106); High Density Lipoprotein 46 mg/dL; Potassium 4.1 mmol/L (3.5-5.1); Protein, Total 7.2 g/dL (6.4-8.2); Sodium Level 136 mmol/L (136-145); Triglycerides 167 mg/dL; Very Low Density Lipoprotein 33 mg/dL (5-40)
== END | disposition home or self-care (01) ==
LOC: POLAB3 10:07
PROVIDERS: PCP Family Medicine Geriatric Medicine; Visit Provider Family Medicine Geriatric Medicine
DX: E78.5 Hyperlipidemia, unspecified (principal); E11.65 Type 2 diabetes mellitus with hyperglycemia; I10 Essential (primary) hypertension; E55.9 Vitamin D deficiency, unspecified
CPT/HCPCS: 36415; 80053; 80061; 82306; 83036; 84443; 85025

== ENCOUNTER → 2024-08-28 | Outpatient (CLI) | payer MEDICARE, MEDICAID, SELFPAY ==
[2024-08-28 10:23] LABS: Absolute Lymphocyte Count 1.76 X10^3/uL (0.83-4.51); Absolute Neutrophil Count 6.2 X10^3/uL (2.0-7.7); Basophil# 0.03 X10^3/uL; Basophil% 0.3 % (0-1); Eosinophil# 0.29 X10^3/uL; Eosinophils% 3.2 % (0-5); Hematocrit 43.4 % (37-47); Hemoglobin 14.9 g/dL (12.0-15.0); Lymphocyte # 1.76 X10^3/ul (0.83-4.51); Lymphocyte % 19.5 % (19-41); Mean Corp Hgb Conc 34.3 g/dL (32-36); Mean Corpuscular Hgb 32.5 pg (27.0-32.0); Mean Corpuscular Volume 94.6 fL (81-99); Monocyte# 0.67 X10^3/uL; Monocyte% 7.4 % (0-10); NRBC Flagged by Analyzer 0 % (0-5); Neutrophil % 68.8 % (47-70); Platelet Count 193 K/mm3 (150-450); RBC Distribution Width CV 12.2 % (11.6-14.6); RBC Distribution Width SD 41.9 fl (35.1-43.9); Red Blood Count 4.59 M/mm3 (4.2-5.4)
[2024-08-28 10:41] LABS: Hemoglobin A1c 9.2 % (<=5.6)
[2024-08-28 11:05] LABS: ALB/GLOB Ratio 1.4 RATIO (0.9-2.4); AST(SGOT) 26 U/L (<=31); Alanine Aminotransfer ALT/SGPT 18 U/L (<=34); Albumin, Serum 4.1 g/dL (3.4-4.8); Alkaline Phosphatase 90 U/L (35-104); Anion Gap 16 (5-15); BUN 20 mg/dL (4-19); BUN/Creat Ratio 16.4 RATIO (10-20); Carbon Dioxide 22.7 mmol/L (21.0-32.0); Chloride 96 mmol/L (98-108); Cholesterol 218 mg/dL (<=200); Creatinine, Serum 1.22 mg/dL (0.70-1.20); EST Glomerular Filtration Rate 45 (>60); Globulin 2.8 g/dL (2.2-4.2); Glucose 327 mg/dL (70-99); High Density Lipoprotein 46 mg/dL; Low Density Lipoprotein Calc. 135 mg/dL; Potassium 4.1 mmol/L (3.3-5.1); Protein, Total 6.9 g/dL (5.9-8.4); Sodium Level 134 mmol/L (133-145); Total Bilirubin 0.44 mg/dL (0.00-1.30); Triglycerides 187 mg/dL; Very Low Density Lipoprotein 37 mg/dL (5-40); cholesterol:hdl ratio screen 4.77
[2024-08-28 11:06] LABS: Vitamin D,25 Hydroxy 53.1 ng/mL (30-100)
== END | disposition home or self-care (01) ==
LOC: POLAB3 10:05
PROVIDERS: PCP Family Medicine Geriatric Medicine; Visit Provider Family Medicine Geriatric Medicine
DX: I10 Essential (primary) hypertension (principal); E11.65 Type 2 diabetes mellitus with hyperglycemia; E78.5 Hyperlipidemia, unspecified
CPT/HCPCS: 36415; 80053; 80061; 82306; 83036; 84443; 85025

== ENCOUNTER → 2024-11-21 | Outpatient (CLI) | payer MEDICARE, MEDICAID, SELFPAY ==
[2024-11-21 11:38] LABS: Absolute Lymphocyte Count 2.12 X10^3/uL (0.83-4.51); Absolute Neutrophil Count 4.8 X10^3/uL (2.0-7.7); Basophil# 0.03 X10^3/uL; Basophil% 0.4 % (0-1); Eosinophil# 0.34 X10^3/uL; Eosinophils% 4.2 % (0-5); Hematocrit 43.2 % (37-47); Hemoglobin 14.4 g/dL (12.0-15.0); Lymphocyte # 2.12 X10^3/ul (0.83-4.51); Lymphocyte % 26.5 % (19-41); Mean Corp Hgb Conc 33.3 g/dL (32-36); Mean Corpuscular Hgb 32.4 pg (27.0-32.0); Mean Corpuscular Volume 97.3 fL (81-99); Monocyte# 0.73 X10^3/uL; Monocyte% 9.1 % (0-10); NRBC Flagged by Analyzer 0 % (0-5); Neutrophil # 4.75 X10^3/uL (2.7-7.7); Neutrophil % 59.3 % (47-70); Platelet Count 206 K/mm3 (150-450); RBC Distribution Width CV 12.2 % (11.6-14.6); RBC Distribution Width SD 44.4 fl (35.1-43.9); Red Blood Count 4.44 M/mm3 (4.2-5.4)
[2024-11-21 12:23] LABS: Cholesterol 191 mg/dL (<=200); High Density Lipoprotein 48 mg/dL; Low Density Lipoprotein Calc. 113 mg/dL; Triglycerides 147 mg/dL; Very Low Density Lipoprotein 29 mg/dL (5-40); cholesterol:hdl ratio screen 3.95
[2024-11-21 12:35] LABS: ALB/GLOB Ratio 1.2 RATIO (0.9-2.4); AST(SGOT) 25 U/L (<=31); Alanine Aminotransfer ALT/SGPT 15 U/L (<=34); Albumin, Serum 3.9 g/dL (3.4-4.8); Alkaline Phosphatase 80 U/L (35-104); Anion Gap 15 (5-15); BUN 28 mg/dL (4-19); BUN/Creat Ratio 19.2 RATIO (10-20); Calcium,Total 9.3 mg/dL (7.6-11.0); Carbon Dioxide 24.1 mmol/L (21.0-32.0); Chloride 97 mmol/L (98-108); Creatinine, Serum 1.46 mg/dL (0.70-1.20); EST Glomerular Filtration Rate 37 (>60); Globulin 3.2 g/dL (2.2-4.2); Glucose 170 mg/dL (70-99); Potassium 4.4 mmol/L (3.3-5.1); Protein, Total 7.1 g/dL (5.9-8.4); Sodium Level 136 mmol/L (133-145); Total Bilirubin 0.33 mg/dL (0.00-1.30)
== END | disposition home or self-care (01) ==
LOC: LAB 10:54
PROVIDERS: PCP Family Medicine Geriatric Medicine; Referring Provider Family Medicine Geriatric Medicine; Visit Provider Family Medicine Geriatric Medicine
DX: E11.65 Type 2 diabetes mellitus with hyperglycemia (principal); I10 Essential (primary) hypertension; E78.5 Hyperlipidemia, unspecified
CPT/HCPCS: 36415; 80053; 80061; 83036; 84443; 85025

== ENCOUNTER → 2024-12-04 | Outpatient (CLI) | payer MEDICARE, MEDICAID, SELFPAY ==
[2024-12-04 12:53] LABS: Basophil# 0.03 X10^3/uL; Basophil% 0.4 % (0-1); Eosinophil# 0.35 X10^3/uL; Eosinophils% 4.3 % (0-5); Hematocrit 41.6 % (37-47); Hemoglobin 13.9 g/dL (12.0-15.0); Lymphocyte % 23.5 % (19-41); Mean Corp Hgb Conc 33.4 g/dL (32-36); Mean Corpuscular Volume 95.9 fL (81-99); Mean Platelet Vol. 11.4 fl (6.2-12.0); Monocyte# 0.81 X10^3/uL; NRBC Flagged by Analyzer 0 % (0-5); Neutrophil # 4.96 X10^3/uL (2.7-7.7); Neutrophil % 61.3 % (47-70); Platelet Count 211 K/mm3 (150-450); RBC Distribution Width CV 12.3 % (11.6-14.6); RBC Distribution Width SD 43.8 fl (35.1-43.9); Red Blood Count 4.34 M/mm3 (4.2-5.4); White Blood Count 8.1 K/mm3 (4.4-11.0)
[2024-12-04 13:36] LABS: ALB/GLOB Ratio 1.4 RATIO (0.9-2.4); AST(SGOT) 20 U/L (<=31); Alanine Aminotransfer ALT/SGPT 14 U/L (<=34); Albumin, Serum 4.2 g/dL (3.4-4.8); Alkaline Phosphatase 80 U/L (35-104); Anion Gap 11 (5-15); BUN 28 mg/dL (4-19); BUN/Creat Ratio 22.4 RATIO (10-20); Calcium,Total 9.6 mg/dL (7.6-11.0); Carbon Dioxide 28.1 mmol/L (21.0-32.0); Chloride 98 mmol/L (98-108); Cholesterol 200 mg/dL (<=200); Creatinine, Serum 1.27 mg/dL (0.70-1.20); EST Glomerular Filtration Rate 43 (>60); Glucose 184 mg/dL (70-99); High Density Lipoprotein 49 mg/dL; Low Density Lipoprotein Calc. 123 mg/dL; Potassium 4.6 mmol/L (3.3-5.1); Protein, Total 7.2 g/dL (5.9-8.4); Sodium Level 138 mmol/L (133-145); Total Bilirubin 0.31 mg/dL (0.00-1.30); Triglycerides 141 mg/dL; Very Low Density Lipoprotein 28 mg/dL (5-40); Vitamin D,25 Hydroxy 55.7 ng/mL (30-100); cholesterol:hdl ratio screen 4.07
[2024-12-04 14:22] LABS: Hemoglobin A1c 8.1 % (<=5.6)
== END | disposition home or self-care (01) ==
LOC: LAB 11:43
PROVIDERS: PCP Family Medicine Geriatric Medicine; Referring Provider Family Medicine Geriatric Medicine; Visit Provider Family Medicine Geriatric Medicine
DX: E11.65 Type 2 diabetes mellitus with hyperglycemia (principal); I10 Essential (primary) hypertension; E78.5 Hyperlipidemia, unspecified; E55.9 Vitamin D deficiency, unspecified
CPT/HCPCS: 36415; 80053; 80061; 82306; 83036; 84443; 85025

== ENCOUNTER → 2025-02-27 | Outpatient (CLI) | payer MEDICARE, MEDICAID, SELFPAY ==
[2025-02-27 13:18] LABS: Hematocrit 41.9 % (37-47); Hemoglobin 14.3 g/dL (12.0-15.0); Immature Granulocytes Count 0.060 X10^3/uL (0.0-0.0); Mean Corp Hgb Conc 34.1 g/dL (32-36); Mean Corpuscular Volume 95.2 fL (81-99); Mean Platelet Vol. 11.1 fl (6.2-12.0); NRBC Flagged by Analyzer 0 % (0-5); Platelet Count 206 K/mm3 (150-450); RBC Distribution Width CV 12.6 % (11.6-14.6); RBC Distribution Width SD 43.6 fl (35.1-43.9); Red Blood Count 4.40 M/mm3 (4.2-5.4); White Blood Count 8.7 K/mm3 (4.4-11.0)
[2025-02-27 14:46] LABS: AST(SGOT) 19 U/L (<=31); Alanine Aminotransfer ALT/SGPT 12 U/L (<=34); Albumin, Serum 4.0 g/dL (3.4-4.8); Alkaline Phosphatase 78 U/L (35-104); Anion Gap 12 (5-15); BUN 32 mg/dL (4-19); BUN/Creat Ratio 23.5 RATIO (10-20); Calcium,Total 9.4 mg/dL (7.6-11.0); Carbon Dioxide 26.9 mmol/L (21.0-32.0); Chloride 98 mmol/L (98-108); Cholesterol 209 mg/dL (<=200); Globulin 3.1 g/dL (2.2-4.2); Glucose 124 mg/dL (70-99); Low Density Lipoprotein Calc. 123 mg/dL; Potassium 4.2 mmol/L (3.3-5.1); Triglycerides 179 mg/dL; Very Low Density Lipoprotein 36 mg/dL (5-40); Vitamin D,25 Hydroxy 53.9 ng/mL (30-100); cholesterol:hdl ratio screen 4.12
== END | disposition home or self-care (01) ==
LOC: LAB 12:32
PROVIDERS: PCP Family Medicine Geriatric Medicine; Referring Provider Family Medicine Geriatric Medicine; Visit Provider Family Medicine Geriatric Medicine
DX: E11.65 Type 2 diabetes mellitus with hyperglycemia (principal); E55.9 Vitamin D deficiency, unspecified; E78.5 Hyperlipidemia, unspecified; I10 Essential (primary) hypertension
CPT/HCPCS: 36415; 80053; 80061; 82306; 83036; 84443; 85025

== ENCOUNTER 2025-03-12 17:53 | Emergency (ER) | payer MEDICARE, MEDICAID, SELFPAY ==
[2025-03-12 17:54] VITALS: BP 151/105; PULSE 97; RESP 18; TEMP 37; O2SAT 95; BMI 31.3
--- NOTE | 2025-03-12 19:03 | EDS_ITS ---
HPI History of Present Illness Chief Complaint: Hypertension Narrative Narrative: History and physical is mildly limited secondary to developmental delay. Per patient's family, she had elevated blood pressure today. They state that her primary care provider, Dr. Merlos, took her off the valsartan 2 weeks ago secondary to low blood pressures with systolics in the 90s and she was getting lightheaded. She has not taken it in 2 weeks. They noted that her blood pressure was elevated at 184/104 today. She was not having chest pain or shortness of breath. Additionally, 2 days ago patient had a fall and is having right great toe pain, swelling, and bruising. They present her for evaluation because of pain worse with standing and walking. [facility] Medical History Kidney disease Former smoker Walker as ambulation aid Cervical disc disorder Cervical spondylosis Cervical stenosis of spine Atherosclerosis Mixed hyperlipidemia Acute cystitis Macular degeneration Pseudophakia Disorder of bone and cartilage Onychomycosis Atrophic vaginitis ASD (atrial septal defect) Dermatophytosis Tobacco use disorder Chronic bronchitis Urethrocele Stress incontinence Dysuria Myelopathy Stroke Back problem Arthritis Hypertension Diabetes TIA (transient ischemic attack) Home Medications ?Medication ?Instructions ?Recorded ?Last Taken ?Type citalopram 10 mg tablet 10 mg PO QHS Depression 02/0 03/1011/02/21 History gabapentin 100 mg capsule 100 mg PO TID nerve pain 11/03/21 History cholecalciferol (vitamin D3) 25 25 mcg PO DAILY bones 11/03/21 11/03/21 History mcg (1,000 unit) tablet (Vitamin D3) polysaccharide iron complex 150 mg 150 mg PO DAILY 30 days #30 caps 11/19/21 Unknown Rx iron capsule (Ferrex) albuterol sulfate 90 mcg/actuation inhalation 03/12/25 Unknown History aerosol inhaler pantoprazole 40 mg tablet,delayed 40 mg PO DAILY 03/12 Unknown History release pioglitazone 30 mg tablet 30 mg PO DAILY 03/12/25 Unkn own History Allergy/AdvReac Type Severity Reaction Status Date / Time amitriptyline Allergy Rash Verified 01/01/24 13:25 Penicillins Allergy Hives Verified 01/01/24 13:25 codeine AdvReac Intermediate Other Verified 01/01/24 13:25 Surgical History History of cervical spinal surgery Social History housing: other details: [facility] Smoking Status: Former smoker alcohol intake: never substance use type: does not use what type of physical activity do you participate in: none ROS ROS ED ROS Narrative Unable to obtain from patient secondary to developmental delay. She is able to state that her right toe is swollen and hurts. She has been taking Tylenol for the pain. Family reports elevated blood pressure this morning. EXAM Physical Exam Narrative Exam Narrative: Afebrile. Vital signs noted. Nontoxic-appearing. Blood pressure currently 151/105. Cardiovascular examination reveals regular rate and rhythm. Lungs clear to auscultation bilaterally. Abdomen soft and nontender. Inspection of the right great toe does show mild swelling with ecchymosis. No crepitance. Palpable dorsalis pulse. Const Vital Signs: 03/12/25 17:54 Temperature 98.6 F Temperature Source Oral Pulse Rate 97 Respiratory Rate 18 Blood Pressure 151/105 H Blood Pressure Mean 120 Pulse Ox 95 Oxygen Delivery Method Room Air MDM MDM MDM Narrative Medical decision making narrative: Differential diagnosis includes but not limited to exacerbation of hypertension secondary to no medication, regarding her toe, she may have more of a sprain versus a contusion versus a fracture. Regardless, patient will be placed in a postoperative shoe. Her blood pressure has currently come down. Advised the family to restart her antihypertensive and keep a log of her blood pressures for her primary care provider as well. X-rays obtained of the right foot and 3 views interpreted by myself independently. Patient and family declined any analgesics here in the emergency department. On my independent interpretation of the x-ray of the right foot, there is no acute fracture of the toe. I reviewed the radiology report which comments on mild soft tissue overlying the ankle, but her pain and swelling is in the toe/great toe. At this point in time, I feel is probably more of a sprain versus contusion. She was placed in a postoperative shoe. They have an appointment with Dr. Merlos tomorrow. She will restart her valsartan. Return instructions reviewed. Disposition is discharged home in stable condition. History & Record Review Discussion w/independent historian: Family Additional record(s) reviewed:: Prior ED visit (Noncontributory to current chief complaint) Radiography X-Ray: Read by ED Physician, Read by Radiologist, No Fracture and - (Osteopenia) Diagnostic Testing: Clinical Impression(s) from Imaging Studies Foot X-Ray 03/12/25 19:14 IMPRESSION: Mild soft tissue swelling overlying ankle joint limits evaluation of any subtle fracture deformity. If there is persistent or ongoing clinical suspicion of fracture deformity repeat imaging in 7-10 days is recommended. Reading Location: [id number] Discharge Plan Triage Chief Complaint: Hypertension ED Provider: Tanner Field Dx/Rx/DC Orders Clinical Impression: Hypertension, Sprain of great toe, right Instructions: ED High Blood Pressure Hypertension, ED Toe Sprain Prescriptions: No Action gabapentin 100 mg capsule 100 mg PO TID citalopram 10 mg tablet 10 mg PO QHS cholecalciferol (vitamin D3) [Vitamin D3] 25 mcg (1,000 unit) Tablet 25 mcg PO DAILY polysaccharide iron complex [Ferrex 150] 150 mg iron Capsule 150 mg PO DAILY 30 Days Qty: 30 0RF pantoprazole 40 mg tablet,delayed release (DR/EC) 40 mg PO DAILY pioglitazone 30 mg tablet 30 mg PO DAILY albuterol sulfate 90 mcg/actuation HFA aerosol inhaler inhalation Primary Care Provider: Mook Merlos Chi Referrals: Mook Merlos Chi, MD [Primary Care Provider, Geriatrics] - 3-5 Days Activity Restrictions/Additional Instructions: Restart your antihypertensive medication/valsartan. Follow-up with your primary care provider. Keep a log of your blood pressures. If you start feeling lightheaded or have too far a reduction of your systolic blood pressure to below 100, you may need to lessen the dose. Wear your postoperative shoe when walking or standing. [id number] medications as needed for pain. Print Language: New Zealander Disposition Disposition: Home, Self Care
--- NOTE | 2025-03-12 19:14 | RAD_ITS ---
PROCEDURE: FOOT MIN 3 VIEWS 03/12/2025 REASON FOR EXAM: TRAUMA, PAIN TECHNIQUE: Procedure Code: RADFO Modality: DX Procedure: FOOT MIN 3 VIEWS Laterality: Right COMPARISON: None FINDINGS: Bones: Diffuse osteopenia of visualized bones. Joints: Multilevel degenerative changes of tarsometatarsal and metatarsophalangeal joints. Soft tissues: Soft tissue swelling overlying ankle joint. Other: RAD/Foot min 3 Views IMPRESSION: Mild soft tissue swelling overlying ankle joint limits evaluation of any subtle fracture deformity. If there is persistent or ongoing clinical suspicion of fracture deformity repeat imaging in 7-10 days is recommended. Reading Location: [id number]
[2025-03-12 20:20] VITALS: BP 151/98; PULSE 97; RESP 18; TEMP 37; O2SAT 95
== END 2025-03-12 21:42 | disposition home or self-care (01) ==
PROVIDERS: Emergency Provider Emergency Medicine; PCP Family Medicine Geriatric Medicine; Visit Provider Emergency Medicine
DX: I10 Essential (primary) hypertension (principal); J42 Unspecified chronic bronchitis; E11.9 Type 2 diabetes mellitus without complications; S93.501A Unspecified sprain of right great toe, initial encounter; W19.XXXA Unspecified fall, initial encounter; E78.2 Mixed hyperlipidemia; R62.50 Unspecified lack of expected normal physiological development in childhood; Z79.899 Other long term (current) drug therapy; Z87.891 Personal history of nicotine dependence
CPT/HCPCS: 73630; 99284